=== PATIENT | male | born 1965 | race Caucasian/White ===

== ENCOUNTER 2016-05-22 12:29 | Emergency (ER) | payer OTHER ==
[2015-10-29 10:52] VITALS: BMI 36.6
[~2016-05-22 12:29] MED LIST: AMBIEN10 MG PO; GLUCOPHAGE1000 MG PO; LANTUS INSULIN10 ML SC; LIPITOR80 MG PO; NEURONTIN800 MG PO; NIFEDIPINE ER30 MG PO; OMEPRAZOLE20 M1 PO; PLAVIX75 MG PO; PROZAC20 MG PO; REMERON15 MG PO; REQUIP3 MG PO; TENORMIN50 MG PO; ZESTRIL40 MG PO
[2016-05-22 13:51] LABS: BASOPHILS 0.1 % (0.0-2.0); HEMATOCRIT 38.8 % (42.0-54.0); HEMOGLOBIN 12.1 g/dL (13.5-17.5); IMMATURE GRANULOCYTES 0.3 % (0-5); LYMPHOCYTES 13.8 % (15-50); MCH 25.6 pg (26.0-34.0); MCHC 31.2 g/dL (31.0-37.0); MCV 82.2 fL (80.0-100.0); MEAN PLATELET VOLUME 12.5 fL (7.4-10.4); MONOCYTES 10.1 % (2-11); NEUTROPHILS 72.7 % (40-80); PLATELET COUNT 137 10x3/uL (130-400); RBC 4.72 10x6/uL (4.20-6.10); RDW 14.4 % (11.5-14.5); WBC 7.7 10x3/uL (4.8-10.8)
[2016-05-22 14:36] LABS: ALBUMIN 2.9 g/dL (3.4-5.0); ALKALINE PHOSPHATASE 93 U/L (46-116); ALT (SGPT) 25 U/L (10-68); CALC OSMOLALITY 287 mosm/kg (275-300); CALCIUM 8.7 mg/dL (8.5-10.1); CARBON DIOXIDE 27.9 mmol/L (21.0-32.0); CHLORIDE - SERUM 98 mmol/L (98-107); CHOL - HDL RATIO 2.7 ratio (2.3-4.9); CHOLESTEROL, TOTAL 73 mg/dL (0-200); CKMB 1.5 U/L (0.0-3.6); CREATINE KINASE 187 UL (21-232); CREATININE - SERUM 1.5 mg/dL (0.6-1.3); HDL CHOLESTEROL 27 mg/dL (32-96); LDL CHOLESTEROL 21 mg/dL (0-100); LDL-HDL RATIO 0.8 ratio (1.5-3.5); MAGNESIUM - SERUM 1.2 mg/dL (1.8-2.4); PROTEIN - SERUM 7.3 g/dL (6.4-8.2); SODIUM 133 mmol/L (136-145); TRIGLYCERIDE 128 mg/dL (30-200); TROPONIN-I 0.036 ng/mL (0.000-0.060); UREA NITROGEN 19 mg/dL (7-18); eGFR NON AFRICAN AMERICAN 52 mL/min (90-120)
[2016-05-22 14:40] LABS: GLUCOSE 465 mg/dL (74-106); POTASSIUM - SERUM 4.6 mmol/L (3.5-5.1)
== END 2016-05-22 22:19 | disposition short-term general hospital (02) ==
LOC: D.ER 12:29
PROVIDERS: Emergency Medicine
DX: R07.9 Chest pain, unspecified (principal); I25.10 Atherosclerotic heart disease of native coronary artery without angina pectoris; E83.42 Hypomagnesemia; D64.9 Anemia, unspecified; R74.0 Nonspecific elevation of levels of transaminase and lactic acid dehydrogenase [LDH]; I10 Essential (primary) hypertension; Z86.73 Personal history of transient ischemic attack (TIA), and cerebral infarction without residual deficits; E78.5 Hyperlipidemia, unspecified; E11.65 Type 2 diabetes mellitus with hyperglycemia; Z79.4 Long term (current) use of insulin; I50.9 Heart failure, unspecified; G47.30 Sleep apnea, unspecified

== ENCOUNTER 2016-06-28 19:05 | Inpatient (IN) | payer MEDICARE ==
[~2016-06-28] VITALS: Ht 182.9 cm; Wt 145.6 kg
[2016-06-28 20:46] LABS: BASOPHILS 0.4 % (0.0-2.0); EOSINOPHILS 3.5 % (0-7); HEMATOCRIT 39.4 % (42.0-54.0); IMMATURE GRANULOCYTES 0.5 % (0-5); LYMPHOCYTES 11.4 % (15-50); MCH 24.1 pg (26.0-34.0); MCHC 27.9 g/dL (31.0-37.0); MCV 86.4 fL (80.0-100.0); MONOCYTES 8.4 % (2-11); NEUTROPHILS 75.8 % (40-80); RBC 4.56 10x6/uL (4.20-6.10); RDW 14.5 % (11.5-14.5); WBC 7.8 10x3/uL (4.8-10.8)
[2016-06-28 20:47] LABS: PLATELET COUNT 223 10x3/uL (130-400)
[2016-06-28 21:17] LABS: ALBUMIN 2.7 g/dL (3.4-5.0); ALKALINE PHOSPHATASE 102 U/L (46-116); ALT (SGPT) 26 U/L (10-68); BILIRUBIN - TOTAL 0.29 mg/dL (0.2-1.3); CALC OSMOLALITY 288 mosm/kg (275-300); CALCIUM 8.3 mg/dL (8.5-10.1); CARBON DIOXIDE 35.4 mmol/L (21.0-32.0); CHLORIDE - SERUM 100 mmol/L (98-107); CREATININE - SERUM 0.9 mg/dL (0.6-1.3); POTASSIUM - SERUM 4.3 mmol/L (3.5-5.1); PROTEIN - SERUM 6.6 g/dL (6.4-8.2); SODIUM 140 mmol/L (136-145); UREA NITROGEN 17 mg/dL (7-18); eGFR NON AFRICAN AMERICAN > 90 mL/min (90-120)
[2016-06-28 21:23] LABS: GLUCOSE 247 mg/dL (74-106)
[2016-06-28 21:33] LABS: CKMB 1.8 U/L (0.0-3.6); CREATINE KINASE 74 UL (21-232); PRO BNP 645 pg/mL (0-125); TROPONIN-I 0.017 ng/mL (0.000-0.060)
[2016-06-28] MEDS ORDERED: ASPIRIN81 MG PO (23:52)
[2016-06-28] MEDS ORDERED: BACLOFEN10 MG PO (23:53)
[2016-06-28] MEDS ORDERED: COREG12.5 MG PO (23:54)
[2016-06-28] MEDS ORDERED: LASIX20 MG PO ×2 (23:55→23:56)
[2016-06-28] MEDS ORDERED: TRAZODONE HCL50 MG PO (23:57)
[2016-06-29 00:22] VITALS: BP 148/84; BMI 43.5
[2016-06-29] MEDS ORDERED: ULTRAM50 MG PO (00:52)
[2016-06-29 04:00] VITALS: BP 174/81
[2016-06-29 04:44] LABS: BASOPHILS 0.2 % (0.0-2.0); EOSINOPHILS 3.9 % (0-7); HEMATOCRIT 38.2 % (42.0-54.0); HEMOGLOBIN 11.1 g/dL (13.5-17.5); IMMATURE GRANULOCYTES 0.3 % (0-5); LYMPHOCYTES 13.9 % (15-50); MCH 24.3 pg (26.0-34.0); MCHC 29.1 g/dL (31.0-37.0); MEAN PLATELET VOLUME 12.2 fL (7.4-10.4); MONOCYTES 11.7 % (2-11); PLATELET COUNT 230 10x3/uL (130-400); RBC 4.56 10x6/uL (4.20-6.10); RDW 14.4 % (11.5-14.5); WBC 6.5 10x3/uL (4.8-10.8)
[2016-06-29 04:46] LABS: MCV 83.8 fL (80.0-100.0)
[2016-06-29 05:10] LABS: CALC OSMOLALITY 289 mosm/kg (275-300); CALCIUM 8.6 mg/dL (8.5-10.1); CARBON DIOXIDE 39.5 mmol/L (21.0-32.0); CHLORIDE - SERUM 98 mmol/L (98-107); CREATININE - SERUM 0.9 mg/dL (0.6-1.3); GLUCOSE 275 mg/dL (74-106); POTASSIUM - SERUM 3.5 mmol/L (3.5-5.1); SODIUM 140 mmol/L (136-145); TROPONIN-I 0.037 ng/mL (0.000-0.060); UREA NITROGEN 15 mg/dL (7-18); eGFR NON AFRICAN AMERICAN > 90 mL/min (90-120)
--- NOTE | 2016-06-29 07:15 | NUR ---
REPORT RECEIVED FROM SOLAR ENGINEER NURSE. CALL LIGHT IN REACH.
--- NOTE | 2016-06-29 07:54 | NUR ---
REPORT RECEIVED FROM WEB PRODUCER NURSE. CALL LIGHT IN REACH.
[2016-06-29 08:15] VITALS: BP 151/79
--- NOTE | 2016-06-29 08:20 | NUR ---
REPORT CALLED TO DULCE ALVARADO.
--- NOTE | 2016-06-29 08:26 | NUR ---
AM MEDS ADMINISTERED. TRANSFERRED TO ROOM 2116 VIA .
--- NOTE | 2016-06-29 09:00 | NUR ---
RECEIVED PT TO ROOM 116 FROM MED/SURG DX CHF PT SLIGHTLY SOB O2 ON 3LPM NC TELEMETRY INTACT BUMEX TO PATENT TO RT HAND PER PUMP WITHOUT DIFFICULTY WILL CONTINUE TO MONITOR
--- NOTE | 2016-06-29 09:04 | NUR ---
DOBUTREX GTT STATRED AT THIS TIME PER PUMP AT 21.8 ML/HR TO RT HAND
--- NOTE | 2016-06-29 11:58 | NUR ---
SPOKE WITH DR CREWS REPORTED B/P 198/90 RECEIVED ORDERS TO RESTART HOME MEDICATIONS
[2016-06-29 12:05] VITALS: BP 198/90
--- NOTE | 2016-06-29 12:07 | NUR ---
FSBS 314 HUMALOG 12 UNITS GIVEN SQ ABDOMEN
--- NOTE | 2016-06-29 13:19 | NUR ---
RATIONALE FOR SCD'S EXPLAINED. REFUSED SCD'S
[2016-06-29 14:02] VITALS: Ht 182.9 cm; Wt 145.6 kg
--- NOTE | 2016-06-29 14:04 | NUR ---
IV access-22 gauge catheter inserted in right hand for access. Ragini Covington RN
[2016-06-29 15:53] VITALS: BP 197/95
[2016-06-29 20:00] VITALS: BP 140/67
--- NOTE | 2016-06-29 20:00 | NUR ---
PT SITTING UP IN BEDSIDE CHAIR. ALERT/ORIENTED. PIV TO RIGHT HAND WITH BUMEX DRIP INFUSING AT 5ML/HR AND DOBUTAMINE DRIP AT 21.8ML/HR INFUSING. EXPLAINED IMPORTANCE OF MEASURING ALL OUTPUT. REVIEWED PLAN OF CARE. O2 @ 2L/NC. SR PER TELEMETRY. CALL LIGHT IN REACH. CPOC.
--- NOTE | 2016-06-29 22:00 | NUR ---
BEDTIME MEDS GIVEN. FSBS 388. SLIDING SCALE INSULIN GIVEN, WELL SCHEDULED LANTUS.
[2016-06-30] VITALS: BP 122/71
[2016-06-30 04:00] VITALS: BP 120/67
[2016-06-30 04:32] LABS: BASOPHILS 0.5 % (0.0-2.0); EOSINOPHILS 2.4 % (0-7); HEMATOCRIT 37.5 % (42.0-54.0); HEMOGLOBIN 11.3 g/dL (13.5-17.5); IMMATURE GRANULOCYTES 0.5 % (0-5); LYMPHOCYTES 17.4 % (15-50); MCH 24.2 pg (26.0-34.0); MCHC 30.1 g/dL (31.0-37.0); MEAN PLATELET VOLUME 11.6 fL (7.4-10.4); MONOCYTES 10.4 % (2-11); NEUTROPHILS 68.8 % (40-80); PLATELET COUNT 225 10x3/uL (130-400); RBC 4.66 10x6/uL (4.20-6.10); RDW 14.8 % (11.5-14.5); WBC 6.4 10x3/uL (4.8-10.8)
[2016-06-30 04:36] LABS: MCV 80.5 fL (80.0-100.0)
[2016-06-30 05:01] LABS: ALBUMIN 2.8 g/dL (3.4-5.0); ALKALINE PHOSPHATASE 88 U/L (46-116); ALT (SGPT) 22 U/L (10-68); BILIRUBIN - TOTAL 0.61 mg/dL (0.2-1.3); CALC OSMOLALITY 286 mosm/kg (275-300); CALCIUM 8.5 mg/dL (8.5-10.1); CARBON DIOXIDE 39.3 mmol/L (21.0-32.0); CHLORIDE - SERUM 94 mmol/L (98-107); CREATININE - SERUM 0.9 mg/dL (0.6-1.3); POTASSIUM - SERUM 3.3 mmol/L (3.5-5.1); PRO BNP 942 pg/mL (0-125); PROTEIN - SERUM 7.2 g/dL (6.4-8.2); SODIUM 137 mmol/L (136-145); UREA NITROGEN 13 mg/dL (7-18); eGFR NON AFRICAN AMERICAN > 90 mL/min (90-120)
[2016-06-30 05:03] LABS: GLUCOSE 335 mg/dL (74-106)
--- NOTE | 2016-06-30 07:30 | NUR ---
PT RESTING QUIETLY EYES CLOSED RESP UNLABORED SKIN W/D NAD NOTED
[2016-06-30 08:56] VITALS: BP 150/70
--- NOTE | 2016-06-30 10:45 | NUR ---
Nutrition follow-up: Diet: ADA consistent CHO PO intake 100% of meals Labs: FSBS high Wt: 300# RDN following.
[2016-06-30 12:00] VITALS: BP 139/61
--- NOTE | 2016-06-30 13:10 | NUR ---
DR CREWS NOTIFIED OF PT'S FSBS 452 PT WAS COVERED WITH 20 UNITS OF HUMALOG SQ PER SLIDING SCALE NO FURTHER ACTION NEEDED PER DR CREWS
[2016-06-30 17:41] VITALS: BP 151/67
--- NOTE | 2016-06-30 18:40 | NUR ---
CALLED CRITICAL GLUCOSE [address] RODRÍGUEZ PECAN SHELLER FOR DR CREWS REPPORTED THAT 20 UNITS OF HUMALOG HAD BEED GIVEN PER PROTOCAL WHEN FSBS WAS GIVEN DR RODRÍGUEZ ORDERED FSBS TO BE RECHECKED IN 1 HOUR
--- NOTE | 2016-06-30 19:59 | NUR ---
PT ACCU CHECK DONE. GLUCOSE 444. PT HAS BEEN GREATER THAN 400 MOST OF THE DAY. CALL TO DR DIAZ AT THIS ITME TO NOTIFY HIM OF PT'S HYPERGLYCEMIA THIS PM. AWAITING RETURN CALL.
[2016-06-30 20:00] VITALS: BP 110/74
--- NOTE | 2016-06-30 20:01 | NUR ---
DR DIAZ RETURNS CALL. ORDERS 20 UNITS HUMALOG NOW AND TO RECHECK GLUCOSE IN 1 HOUR.
--- NOTE | 2016-06-30 20:57 | NUR ---
PT GLUCOSE RECHECKED. CONTINUES TO BE OVER 400 - RESULTED 417. CALL TO DR DIAZ, HE RETURNS CALL IMMEDIATELY. NEW ORDER RECEIVED TO GIVE 15 UNITS NOW OF HUMALOG SQ. RECHECK AT 2200. ALSO ORDERS TO CHANGE GLUCOSE CHECKS TO Q4H ONCE ABLE TO GET GLUCOSE UNDER 400 AND TO SWITCH THE PT TO THE HIGH DOSE SLIDING SCALE. SEE RN RECOVERY FOR FURTHER DETAILS.
--- NOTE | 2016-06-30 22:41 | NUR ---
GLUCOSE NOW 390. NO INTERVENTION. WILL RECHECK AT MIDNIGHT AND TREAT ACCORDINGLY PER S/S
--- NOTE | 2016-06-30 23:50 | NUR ---
PT GLUCOSE NOW 290. COVERAGE GIVEN PER S/S - HUMALOG 16 UNITS SC. WILL RECHECK IN 4 HOURS ORDERED. PT UPDATED ON POC CARE GIVEN, VERBALIZES UNDERSTANDING.
[2016-07-01 04:00] VITALS: BP 101/71
[2016-07-01 05:27] LABS: BASOPHILS 0.3 % (0.0-2.0); EOSINOPHILS 2.4 % (0-7); HEMATOCRIT 36.8 % (42.0-54.0); HEMOGLOBIN 10.9 g/dL (13.5-17.5); IMMATURE GRANULOCYTES 0.3 % (0-5); LYMPHOCYTES 16.4 % (15-50); MCH 24.2 pg (26.0-34.0); MCHC 29.6 g/dL (31.0-37.0); MCV 81.6 fL (80.0-100.0); MEAN PLATELET VOLUME 12.5 fL (7.4-10.4); MONOCYTES 17.7 % (2-11); NEUTROPHILS 62.9 % (40-80); PLATELET COUNT 210 10x3/uL (130-400); RBC 4.51 10x6/uL (4.20-6.10); RDW 14.7 % (11.5-14.5); WBC 5.7 10x3/uL (4.8-10.8)
[2016-07-01 05:51] LABS: ALBUMIN 2.7 g/dL (3.4-5.0); ANION GAP 4.7 mmol/L (8-16); BILIRUBIN - TOTAL 0.5 mg/dL (0.2-1.3); CALCIUM 8.2 mg/dL (8.5-10.1); POTASSIUM - SERUM 3.2 mmol/L (3.5-5.1)
[2016-07-01 06:08] LABS: CREATININE - SERUM 1.2 mg/dL (0.6-1.3)
[2016-07-01 06:09] LABS: CARBON DIOXIDE 41.5 mmol/L (21.0-32.0)
--- NOTE | 2016-07-01 07:52 | NUR ---
AWAKE LYING IN BED WITHOUT ANY DISTRESS. 3+ EDEMA IN L LOWER EXTREMITY. 4+ IN R LOWER EXTREMITY. WEIGHT IS 293 ON STANDING SCALE. BUMEX GTT IS GOING @ 5 AND DOPAMINE GTT GOING @ 21,8. MONITOR SHOWS ST@ RATE OF 106. WILL CONTINUE TO MONITOR.
[2016-07-01 09:19] VITALS: BP 135/66
--- NOTE | 2016-07-01 12:00 | NUR ---
BS IS 414. DR GANDHI HERE AND INFORMED OF BLOOD SUGAR. BS TO REMAIN TO BE CHECKED Q 4.
[2016-07-01 12:21] VITALS: BP 99/63
--- NOTE | 2016-07-01 13:22 | NUR ---
CALLED BACK AND ORDERS RECEIVED TO GIVE 20 U OF INSULIN AND RECHECK BS IN 1 HOUR.
[2016-07-01 15:49] VITALS: BP 94/62
[2016-07-01 21:37] VITALS: BP 132/69
[2016-07-02 00:30] VITALS: BP 148/83
[2016-07-02 04:30] VITALS: BP 120/72
[2016-07-02 04:55] LABS: BASOPHILS 0.4 % (0.0-2.0); EOSINOPHILS 3.9 % (0-7); HEMATOCRIT 37.9 % (42.0-54.0); HEMOGLOBIN 11.2 g/dL (13.5-17.5); IMMATURE GRANULOCYTES 0.4 % (0-5); LYMPHOCYTES 20.2 % (15-50); MCH 24.1 pg (26.0-34.0); MCHC 29.6 g/dL (31.0-37.0); MCV 81.7 fL (80.0-100.0); MEAN PLATELET VOLUME 11.9 fL (7.4-10.4); NEUTROPHILS 60.1 % (40-80); PLATELET COUNT 196 10x3/uL (130-400); RBC 4.64 10x6/uL (4.20-6.10); RDW 14.9 % (11.5-14.5); WBC 4.7 10x3/uL (4.8-10.8)
[2016-07-02 05:17] LABS: ANION GAP 4.5 mmol/L (8-16); CALCIUM 8.5 mg/dL (8.5-10.1); CREATININE - SERUM 1.1 mg/dL (0.6-1.3); POTASSIUM - SERUM 3.1 mmol/L (3.5-5.1)
[2016-07-02 05:37] LABS: CARBON DIOXIDE 41.6 mmol/L (21.0-32.0)
--- NOTE | 2016-07-02 07:25 | NUR ---
PT SITTING UP IN BED SLEEPING NO S/S DISTRESS NOTED WILL CONT TO MONITOR.
[2016-07-02 08:59] VITALS: BP 118/60
[2016-07-02 12:14] VITALS: BP 107/72
[2016-07-02 16:13] VITALS: BP 112/60
--- NOTE | 2016-07-02 18:12 | NUR ---
PT SITTING UP IN CHAIR DENIES NEEDS
--- NOTE | 2016-07-02 19:15 | NUR ---
INITIAL ROUNDS MADE. PT SITTING UP AT SIDE OF BED WATCHING TV. RIGHT HAND IV WITH BUMEX AND DOBUTREX INFUSING. DENIES NEEDS OR C/O AT THIS TIME. WILL CONT TO MONITOR.
[2016-07-02 21:37] VITALS: BP 143/81
--- NOTE | 2016-07-03 00:22 | NUR ---
PEDIATRIC CRITICAL CARE NURSE AT BEDSIDE FOR VS. NEEDS ADDRESSED AT THIS TIME. CALL LIGHT IN REACH. WILL CONT TO MONITOR.
[2016-07-03 00:30] VITALS: BP 101/50
[2016-07-03 04:45] VITALS: BP 132/76
[2016-07-03 04:59] LABS: BASOPHILS 0.3 % (0.0-2.0); EOSINOPHILS 3.2 % (0-7); HEMATOCRIT 38.1 % (42.0-54.0); HEMOGLOBIN 11.2 g/dL (13.5-17.5); IMMATURE GRANULOCYTES 0.3 % (0-5); LYMPHOCYTES 18.8 % (15-50); MCH 24.1 pg (26.0-34.0); MCHC 29.4 g/dL (31.0-37.0); MCV 82.1 fL (80.0-100.0); MEAN PLATELET VOLUME 12.2 fL (7.4-10.4); MONOCYTES 14.2 % (2-11); NEUTROPHILS 63.2 % (40-80); PLATELET COUNT 198 10x3/uL (130-400); RBC 4.64 10x6/uL (4.20-6.10); RDW 15.1 % (11.5-14.5)
--- NOTE | 2016-07-03 05:05 | NUR ---
RESTING WELL WITH EYES CLOSED, CONT TO MONITOR.
[2016-07-03 05:11] LABS: WBC 5.9 10x3/uL (4.8-10.8)
[2016-07-03 05:37] LABS: CALC OSMOLALITY 286 mosm/kg (275-300); CALCIUM 8.2 mg/dL (8.5-10.1); CHLORIDE - SERUM 96 mmol/L (98-107); GLUCOSE 207 mg/dL (74-106); POTASSIUM - SERUM 3.3 mmol/L (3.5-5.1); PRO BNP 463 pg/mL (0-125); SODIUM 139 mmol/L (136-145); UREA NITROGEN 21 mg/dL (7-18); eGFR NON AFRICAN AMERICAN 83 mL/min (90-120)
[2016-07-03 05:42] LABS: CARBON DIOXIDE 42.4 mmol/L (21.0-32.0)
--- NOTE | 2016-07-03 06:45 | NUR ---
WEIGHT 289.6
[2016-07-03 08:00] VITALS: BP 136/85
--- NOTE | 2016-07-03 08:14 | NUR ---
FSBS 265 HUMALOG 16 UNITS GIVEN SQ LT ARM
--- NOTE | 2016-07-03 11:52 | NUR ---
FSBS 393 HUMALOG 24 UNITS GIVEN SQ LT ARM
[2016-07-03 12:08] VITALS: BP 134/80
[2016-07-03 16:00] VITALS: BP 149/72
--- NOTE | 2016-07-03 17:01 | NUR ---
FSBS 435 HUMALOG 28 UNITS GIVEN SQ LT ARM DR GALLO AWARE NEW ORDER NOTED TO RESTART HOME MED FOR METFORMIN 1000 MG PO
--- NOTE | 2016-07-03 19:15 | NUR ---
INITIAL ROUNDS MADE. PT SITTING UP ON SIDE OF BED WATCHING TV. DENIES NEEDS OR C/O AT THIS TIME. CALL LIGHT IN REACH. WILL CONT TO MONITOR.
[2016-07-03 21:40] VITALS: BP 148/76
[2016-07-04 02:00] VITALS: BP 111/64
--- NOTE | 2016-07-04 03:48 | NUR ---
RESTING WELL WITH EYES CLOSED. CALL LIGHT IN REACH. WILL CONT TO MONITOR.
[2016-07-04 04:24] LABS: BASOPHILS 0.2 % (0.0-2.0); EOSINOPHILS 4.1 % (0-7); HEMATOCRIT 38.8 % (42.0-54.0); HEMOGLOBIN 11.5 g/dL (13.5-17.5); IMMATURE GRANULOCYTES 0.2 % (0-5); LYMPHOCYTES 20.5 % (15-50); MCH 24.6 pg (26.0-34.0); MCHC 29.6 g/dL (31.0-37.0); MCV 82.9 fL (80.0-100.0); MEAN PLATELET VOLUME 12.2 fL (7.4-10.4); MONOCYTES 11.6 % (2-11); NEUTROPHILS 63.4 % (40-80); PLATELET COUNT 184 10x3/uL (130-400); RBC 4.68 10x6/uL (4.20-6.10); RDW 15.1 % (11.5-14.5); WBC 5.6 10x3/uL (4.8-10.8)
[2016-07-04 05:10] LABS: ANION GAP 8.9 mmol/L (8-16); CALCIUM 8.4 mg/dL (8.5-10.1); CARBON DIOXIDE 39.5 mmol/L (21.0-32.0); CREATININE - SERUM 1.2 mg/dL (0.6-1.3); POTASSIUM - SERUM 3.4 mmol/L (3.5-5.1)
--- NOTE | 2016-07-04 07:30 | NUR ---
RESTING QUIETLY NAD NOTED
[2016-07-04 07:52] VITALS: BP 146/66
--- NOTE | 2016-07-04 07:54 | NUR ---
FSBS 204 HUMALOG 10 UNITS GIVEN SQ LT ARM
--- NOTE | 2016-07-04 08:17 | EC ---
PATIENT:JOSE MOTA DATE OF SERVICE: 06/28/16 SEX: M MEDICAL RECORD: [id number] DATE OF : [birth year] LOCATION:D. D.211 AGE OF PATIENT: 51 ADMISSION DATE: 06/28/16 REFERRING PHYSICIAN: INTERPRETING PHYSICIAN: PRERNA CORNELL M.D. ECHOCARDIOGRAM REPORT ECHO CHARGES 4 ECHO COMPLETE CLINICAL DIAGNOSIS: CHF HX CAD/STENT/HTN ECHOCARDIOGRAPHIC MEASUREMENTS (adult normal given) AC root (d.<3.7cm) 3.5 LV Septum d (<1.2 cm> 14.4 Valve Excursion 1.6 LV Septum (systole) 1.8 Left Atria (s.<4.0cm> 3.8 LVPW d(<1.2cm) 1.5 RV (d.<2.3cm) 5.7 LVPW (sytole) 1.8 LV diastole(<5.6CM) 6.5 MV E-F(>70mm/sec) LV systole 4.5 LVOT Diameter 2.3 MV exc.(>10mm) 1.4 Est.ejection fraction (50-75%) Pericardial Effusion N DOPPLER: LVIT A 104 E 133 LA RVSP 25 LVOT 132 AOP1/2T Asc. Ao 180 RVOT 111 RA PA 176 AV Gradient Peak 12.98 AV Mean 7.07 AV Area 3.1 MV Gradient Peak 11.46 MV Mean 4.41 MV Area COMMENTS: [employer] Manager: Jean CAMPBELL Thermostat Machine Tender:2 Dr. Cornell TAPE# PACS DATE OF SERVICE: 06/29/2016 REFERRING PHYSICIAN: Derick Miller DO. INDICATION: CHF. DESCRIPTION: Left ventricle is moderately dilated. However, systolic function is preserved. Estimated ejection fraction is in the order of 50% to 55%. Mitral valve is structurally normal. There is no regurgitation or prolapse seen. Left atrium is normal in size. The aortic valve is trileaflet. There is ECHOCARDIOGRAM REPORT [id number] JOSE MOTA no stenosis or regurgitation seen. Right ventricle is moderately dilated. Tricuspid valve is normal. There is mild regurgitation seen. Right ventricular systolic pressures measured at 25 mmHg. There is no pericardial effusion noted. IMPRESSION: 1. Moderately dilated left ventricle, but ejection fraction preserved at 50% to 55%. 2. Mild tricuspid regurgitation. TRANSINT:[id number] Voice Confirmation ID: [id number] DOCUMENT ID: [id number] PRERNA CORNELL M.D. at 0817 CC: [id number] DICTATION DATE: 06/30/16632 COMPOSING ROOM SUPERVISOR: 06/30/16 1148 ADM IN [facility] [address] [place] [address]
[2016-07-04 11:42] VITALS: BP 83/49
--- NOTE | 2016-07-04 11:48 | NUR ---
FSBS 309 HUMALOG 20 UNITS GIVEN SQ RT ARM
--- NOTE | 2016-07-04 15:00 | NUR ---
RECEIVED PT FROM ADMISSIONS VIA W/C SOB 02 SAT 91 ON ROOM AIR APPLIED O2 2 LPM NC O2 SAT 97% SKIN W/D COLOR WNL 2+ PITTING EDEMA NOTED TO BLEs SALINE LOCK ACCESSED RFA WITH 20 GA IV CATH USING ASEPTIC TECHNIQUE X 2 ATTEMPTS PT TOLERATED WELL TELEMETRY APPLIED SINUS TACH RATE 110 WILL CONTINUE TO MONITOR
--- NOTE | 2016-07-04 15:12 | NUR ---
Nutrition follow-up: Diet: Consistent CHO PO intake 100% of meals Labs: FSBS running very high Wt: 287# Will provide pt with DMT2 diet information RDN following.
[2016-07-04 15:51] VITALS: BP 124/67
--- NOTE | 2016-07-04 17:04 | NUR ---
FSBS 292 HUMALOG 20 UNITS GIVEN SQ ABD
--- NOTE | 2016-07-04 19:15 | NUR ---
INITIAL ROUNDS MADE. PT SITTING UP IN BED WATCHING TV WITH FAMILY AT BEDSIDE. DISCUSSED PLAN OF CARE AND ANSWERED QUESTIONS. PT DENIES NEEDS OR C/O AT THIS TIME. CALL LIGHT IN REACH. WILL CONT TO MONITOR.
--- NOTE | 2016-07-04 23:56 | NUR ---
MORNING CAREGIVER AT BEDSIDE FOR VS. NEEDS ADDRESSED AT THIS TIME. CALL LIGHT IN REACH. WILL CONT TO MONITOR.
[2016-07-05] VITALS: BP 97/50
[2016-07-05 04:00] VITALS: BP 137/66
[2016-07-05 07:31] LABS: ANION GAP 6.1 mmol/L (8-16); CALCIUM 8.4 mg/dL (8.5-10.1); CARBON DIOXIDE 39.2 mmol/L (21.0-32.0); CREATININE - SERUM 1.5 mg/dL (0.6-1.3); MAGNESIUM - SERUM 1.3 mg/dL (1.8-2.4)
[2016-07-05 07:35] LABS: POTASSIUM - SERUM 4.3 mmol/L (3.5-5.1)
[2016-07-05 07:48] VITALS: BP 98/42
[2016-07-05] MEDS ORDERED: BUMEX2 MG PO (07:51)
--- NOTE | 2016-07-05 09:46 | NUR ---
PT IS ALERT. ASSESSMENT DONE PER FLOWSHEET. NO OTHER NEEDS AT THIS TIME. WILL CONTINUE TO MONITOR.
--- NOTE | 2016-07-05 11:37 | NUR ---
Patient Name: JOSE MOTA Admission Status: ER Accout number: [id number] Admission Date: 06-28-2016 : 1965 Admission Diagnosis:ACUTE ON CHRONIC SYSTOLIC (CONGESTIVE) HEART FAILURE Attending: MARLEY Current LOS: 7 Anticipated DC Date: 07-05-2016 Planned Disposition: Home Primary Insurance: Commissioner MEDICARE ADV Discharge Planning Comments: * Is the patient Alert and Oriented? Yes 0 * How many steps to enter\exit or inside your home? RAMP 0 * PCP [facility] * [facility]acy [facility] [address] 0 * Preadmission Environment Home with Family 0 * ADLs Independent 0 * Equipment Cane Glucometer Oxygen 0 * Other Equipment HOME AND PORTABLE OXYGEN [employer] - MEDICAL EQUIPMENT PROVIDER 0 * List name and contact numbers for known caregivers / representatives who currently or will assist patient after discharge: HAO MOTA, MOTHER, 0 * Community resources currently utilized None 0 * Please name any agencies selected above. NONE 0 * Additional services required to return to the preadmission environment? No 0 * Can the patient safely return to the preadmission environment? Yes 0 * Has this patient been hospitalized within the prior 30 days at any hospital? Yes 0 CM MET WITH PT AND HIS MOTHER IN ROOM TO DISCUSS DISCHARGE PLANNING AND NEEDS. PT REPORTS LIVING AT HOME INDEPENDENTLY WITH HIS MOTHER WHO IS WORKING VIDEO CAMERA OPERATOR AND IS HOPING TO BECOME PT[facility]ID [facility] PT HAS HOME AND PORTABLE OXYGEN, GLUCOMETER AND [facility]E [facility]. PT HAS NO OUTSIDE SERVICES ASSISTING IN THE HOME. CM DISCUSSED AVAILABILITY OF HOME HEALTH, REHAB SERVICES AND MEDICAL EQUIPMENT. PT DENIES DISCHARGE NEEDS, REPORTS HER HIS MOTHER IS HERE TO PICK HIM UP FOR DISCHARGE HOME. IMPORTANT MESSAGE FROM MEDICARE PROVIDED AND EXPLAINED. PT TO FOLLOW UP WITH [facility] FOR MANAGER SALES SUPPORT QUESTIONS. Quarter Supervisor: Miko Persaud
[2016-07-05 11:46] VITALS: BP 142/74
--- NOTE | 2016-07-07 18:09 | DS ---
PATIENT:JOSE MOTA :61 MEDICAL RECORD: [id number] DISCHARGE SUMMARY ADMISSION DATE: 06/28/16 DISCHARGE DATE: 07/05/16 ADMISSION DIAGNOSES: Congestive heart failure and uncontrolled diabetes mellitus. DISCHARGE DIAGNOSES: Congestive heart failure and uncontrolled diabetes mellitus. HOSPITAL COURSE: The patient was admitted for worsening shortness of breath, successfully diuresed. Cardiology consulted. Insulin regimen to control his glucose was maintained, gradually improved, dobutamine was added to aid diuresis. Cardiology evaluated the patient, placed him on resumption of oral diuretics. The patient is back to his baseline, anxious to go home. Cleared for discharge by cardiology. He has O2 at home. He was discharged in stable and improved condition. We will follow up with cardiology. We will follow up with Dr. Miller, his primary, in 1 week. DISCHARGE MEDICATIONS: Per med rec. PHYSICAL EXAMINATION: VITAL SIGNS ON DISCHARGE: Temperature 97.9, blood pressure 98/42, heart rate 67, respirations 18 and O2 sats 94% on supplemental O2. LABORATORY DATA: Chemistry shows a sodium of 136, potassium 4.3, chloride 95, bicarbonate 39.2, BUN 31 and creatinine 1.5. MEDICATIONS: Per med rec. Agree with the assessment. Cardiology followup as above. Return to the ER with worsening symptoms. TRANSINT:[id number] Voice Confirmation ID: [id number] DOCUMENT ID: [id number] BALJINDER FAROOQ DO at 1809 CC: [id number] DICTATION DATE: 07/05/16 0757 CARTOGRAPHY TEACHER: 07/06/16 0146 DIS IN 07/05/16 [place] [id number] [place] [id number]
== END 2016-07-05 13:18 | disposition home or self-care (01) | DRG 292 ==
LOC: D.ER 19:05 → D.MS 22:00 → D.M2 22:00 → D.SDCHOLD 06-29 20:08 → D.M2 06-29 20:09
PROVIDERS: Emergency Medicine; Family Medicine; ADMIT Family Medicine
DX: I11.0 Hypertensive heart disease with heart failure (principal); Z68.41 Body mass index [BMI] 40.0-44.9, adult; I50.23 Acute on chronic systolic (congestive) heart failure; E11.65 Type 2 diabetes mellitus with hyperglycemia; I25.10 Atherosclerotic heart disease of native coronary artery without angina pectoris; E78.5 Hyperlipidemia, unspecified; E66.01 Morbid (severe) obesity due to excess calories; E87.6 Hypokalemia; Z86.73 Personal history of transient ischemic attack (TIA), and cerebral infarction without residual deficits

== ENCOUNTER 2016-12-15 21:39 | Emergency (ER) | payer MEDICARE ==
[2016-06-29 14:02] VITALS: BMI 43.4
[~2016-12-15 21:39] MED LIST changes: +ASPIRIN81 MG PO; +BACLOFEN10 MG PO; +BUMEX2 MG PO; +COREG12.5 MG PO; +LASIX20 MG PO; +TRAZODONE HCL50 MG PO; +ULTRAM50 MG PO
== END 2016-12-16 00:30 | disposition home or self-care (01) ==
LOC: D.ER 21:39
DX: K21.9 Gastro-esophageal reflux disease without esophagitis (principal); K20.9 Esophagitis, unspecified; I10 Essential (primary) hypertension

== ENCOUNTER 2016-12-28 19:40 | Emergency (ER) | payer MEDICARE ==
[2016-06-29 14:02] VITALS: BMI 43.4
== END 2016-12-28 21:11 | disposition home or self-care (01) ==
LOC: D.ER 19:40
DX: S91.331A Puncture wound without foreign body, right foot, initial encounter (principal); X58.XXXA Exposure to other specified factors, initial encounter; Y93.89 Activity, other specified; Y92.019 Unspecified place in single-family (private) house as the place of occurrence of the external cause; G62.9 Polyneuropathy, unspecified

== ENCOUNTER 2017-02-27 12:42 | Outpatient (CLI) | payer MEDICARE ==
[~2017-02-27] VITALS: Ht 182.9 cm; Wt 121.2 kg
--- NOTE | ~2017-02-27 | HEMODYNAMI ---
PATIENT:JOSE MOTA MEDICAL RECORD: [id number] : 61 LOCATION:[facility] D.2109 ADMISSION DATE: 02/27/17 Generatedon:03/01/201712:37 Patient name: JOSE MOTA Patient #: [id number] SSN: : 1965 Date of study: 03/01/2017 Page: Of Hemodynamic Procedure Report Patient Data Patient Demographics Procedure consent was obtained First Name: JOSE Gender: Male Last Name: SVETLANA : 1965 [facility] Initial: ELDA Age: 52 year(s) Patient #: [id number] Race: Additional ID: [id number] Contact details [address]: [address] [place] [address] [address] State: [place] City: [place] Zip code: [address] Past Medical History Allergies Allergen Reaction Date Comments Reported Other allergy 10/29/2015 Penicillins Other allergy 02/28/2017 pcn Penicillins 03/01/2017 Admission Admission Data Admission Date: 02/27/2017 Admission Time: 15:26 Room #: D.2109 Height (in.): 71.65 BSA: 2.38 (m2) Height (cm.): 182 BMI: 35.93 (kg/m2) Weight (lbs.): 262.35 Weight (kg.): 119 Lab Results Lab Result Date: 03/01/2017 Lab Result Time: 0:00 Biochemistry Name Units Result Min Max BUN mg/dl 12 --(-*--)-- 7 18 Creatinine mg/dl 0.9 --(-*--)-- 0.6 1.3 CBC Name Units Result Min Max Hemoglobin g/dl 14 --(*---)-- 13.5 17.5 Procedure Procedure Types Cath Procedure PCI Procedure Coronary Stent Coronary Stent Initial Coronary Stent Additional Miscellaneous Procedures Moderate Sedation up to 30 minutes Procedure Description Procedure Date Procedure Date: 03/01/2017 Procedure Start Time: 12:12 Procedure End Time: 12:37 Procedure Staff Name Function Bar French MD Performing Physician Leeanna Temple RT Monitor Jaycee Fofana RT Scrub [place] Diaz RN Nurse Procedure Data Cath Procedure Fluoroscopy Diagnostic fluoroscopy Total fluoroscopy Time: 7.2 time: 7.2 min min Diagnostic fluoroscopy Total fluoroscopy dose: dose: 2105 mGy 2105 mGy Contrast Material Contrast Material Type Amount (ml) Isovue 300 101 Entry Location Entry Primary Successful Side Size Upsize Upsize Entry Closure Ponce ccessful Closure Location (Fr) 1 (Fr) 2 (Fr) Remarks Device Remarks Femoral Right 4 Fr Manual vein Compression Femoral Right 7 Fr Exoseal artery Short Estimated blood loss: 10 ml Procedure Complications No complications Procedure Medications Medication Administration Route Dosage Oxygen NC 2 l/min Lidocaine 2% added to field 20 Heparin Flush Bag added to field 2 bags (1000units/500ml NS) 0.9% NaCl I.V. 100 ml/hr Versed I.V. 2 mg Fentanyl I.V. 100 mcg Heparin Bolus I.V. 4000 units Fentanyl I.V. 50 mcg Hemodynamics Rest BSA: 2.38 (m2) HGB: 14 (g/dl) O2 Consumption: Estimated: 286.31 (ml/min) O2 Cons umption indexed: Estimated:120.3 (ml/min/m) Heart Rate: 74 (bpm) Snapshots Pre Cath Intra NCS Post Cath Vital Signs Time Heart Resp SPO2 etCO2 NIBP (mmHg) Rhythm Pain Sedation Rate (ipm) (%) (mmHg) Status Level (bpm) 11:59:02 73 16 97 0 167/90(147) NSR 0 (11) 10(A) , No pain 12:03:22 72 14 95 0 163/96(135) NSR 0 (11) 10(A) , No pain 12:07:44 67 16 98 41.4 152/94(124) NSR 0 (11) 10(A) , No pain 12:12:00 67 17 98 40.6 134/85(123) NSR 0 (11) 10(A) , No pain 12:16:18 66 15 98 31.6 126/75(104) NSR 0 (11) 10(A) , No pain 12:20:30 83 15 97 32.4 117/78(92) NSR 0 (11) 9(A) , No pain 12:24:42 89 16 94 26.3 115/69(78) NSR 0 (11) 9(A) , No pain 12:28:46 90 14 95 42.1 115/93(108) NSR 0 (11) 9(A) , No pain 12:32:56 88 16 98 25.6 131/77(89) NSR 0 (11) 10(A) , No pain 12:37:06 87 3 96 41.4 113/83(104) NSR 0 (11) 10(A) , No pain Medications Time Medication Route Dose Verified Delivered Reason Notes Effectiveness by by 12:06:03 Oxygen NC 2 Bar Buffie used for l/min Gillian Diaz RN procedure 12:06:10 Lidocaine 2% added 20ml Bar Bar for local to vial Gillian French MD anesthetic field 12:06:14 Heparin Flush added 2 Bar Bar used for Bag to bags Gillian French MD procedure (1000units/500ml field NS) 12:16:00 Versed I.V. 2 mg Bar Jayie for sedation Gillian Diaz RN 12:16:06 Fentanyl I.V. 100 Bar Buffie for sedation mcg Gillian Diaz RN 12:16:54 0.9% NaCl I.V. 100 Bar Bar ml/hr Gillian French MD 12:17:13 Heparin Bolus I.V. 4000 Bargerman Jayie for verifi ed units Gillian Diaz RN anticoagulation with dr french 12:26:57 Fentanyl I.V. 50 Bar Jayie for sedation mcg Gillian Diaz RN Procedure Log Time Note 11:25:02 Patient Height : 71.65 inches 11:25:23 Patient Weight : 262.35 lbs 11:26:23 Diagnostic Cath status Elective 11:26:27 Jaycee Fofana RT(R) sent for patient. Start room use. 11:26:29 Time tracking: Regular hours 11:26:34 Plan of Care:Hemodynamics will remain stable., Cardiac rhythm will remain stable., Comfort level will be maintained., Respiratory function will remain adequate., Patient/ family verbilizes understanding of procedure., Procedure tolerated without complication., Recovers from procedure without complications.. 11:54:56 Patient received from PCU to CCL 2 Alert and oriented. Tansferred to table in Supine position. 11:54:58 Warm blankets applied, and alex hugger turned on for patient comfort. 11:54:59 Correct patient and procedure confirmed by team. 11:55:03 Signed procedure consent form obtained from patient. 11:55:07 ECG and BP/O2 sat monitors applied to patient. 11:57:47 Vital chart was started 11:57:48 Baseline sample Acquired. 11:57:57 Rhythm: sinus rhythm 11:57:59 Full Disclosure recording started 11:58:44 Pre-procedure instructions explained to patient. 11:58:45 Pre-op teaching completed and patient verbalized understanding. 11:58:48 Family in patients room. 11:58:51 Patient NPO since Breakfast. 12:02:41 Patient allergic to Penicillins 12:02:44 Is the patient allergic to Iodine/contrast media? No. 12:02:45 Is patient on blood thinner?Yes 12:02:55 ACC The patient was administered the following blood thiners within the last 24 hours: ACCPlavix 12:02:58 Patient diabetic? No. 12:03:00 If diabetic: On Metformin? No 12:03:05 ----Pre-sedation anethsthesia assessment.---- 12:03:07 Previous problem with sedation/anesthesia? No ? 12:03:10 Snore? Yes 12:03:11 Sleep apnea? Yes 12:03:13 Deviated septum? No 12:03:14 Opens mouth fully? No 12:03:19 Sticks out tongue? Yes 12:03:22 Airway obstruction? No ? 12:03:30 Dentures? No ? 12:04:04 Pre procedure: right dorsailis pedis pulse 2+ Normal; easily identifiable; not easily obliterated 12:04:12 Patient pain scale 0/10 ?. 12:04:27 IV patent on arrival in left wrist with 0.9% NaCl at O. 12:04:51 THE I.V. WILL NOT FLUSH 12:05:14 DR. FRENCH WILL GAIN RFV ACCESS FOR IV 12:06:03 Oxygen 2 l/min NC was administered by Ridge Diaz RN; used for procedure; 12:06:10 Lidocaine 2% 20ml vial added to field was administered by Bar French MD; for local anesthetic; 12:06:14 Heparin Flush Bag (1000units/500ml NS) 2 bags added to field was administered by Bar French MD; used for procedure; 12:06:20 Lab Result : BUN 12 mg/dl 12:06:20 Lab Result : Creatinine 0.9 mg/dl 12:06:20 Lab Result : Hemoglobin 14 g/dl 12:06:52 Lab results completed and on chart. 12:06:56 Right groin area was prepped with chlora-prep and draped in sterile fashion 12:06:58 Alarms reviewed by R. N. 12:06:58 Sharps counted by scrub and verified by R.N. 12:06:59 Physician arrived 12:07:00 --------ALL STOP TIME OUT------ 12:07:01 Final Timeout: patient, procedure, and site verified with staff and physician. All members of the team are in agreement. 12:07:04 Right groin site verified by team. 12:07:07 Physical assessment completed. ASA score P 2 - A patient with mild systemic disease as per Bar French MD. 12:07:11 Sedation plan: IV Moderate Sedation Medication:Versed, Fentanyl 12:07:13 Bar French MD present and monitoring patient for TIVA. 12:07:17 Zero performed for pressure channel P1 12:12:34 Procedure started. 12:12:38 Local anesthetic to right femoral artery with Lidocaine 2% by Bar French MD.INITIAL ACCESS ONLY 12:14:24 Use device set Femoral PCI 12:14:28 Tegaderm 4 x 4 opened to sterile field. 12:14:29 Acist Manifold opened to sterile field. 12:14:40 Medline Cath Pack opened to sterile field. 12:14:41 Acist Hand Control opened to sterile field. 12:14:42 Acist Syringe opened to sterile field. 12:14:43 Bag Decanter opened to sterile field. 12:14:46 Terumo 7Fr Ambler Sheath opened to sterile field. 12:14:47 ST Mauricio 4Fr Sheath opened to sterile field. 12:14:48 Medtronic Launcher 7Fr AR 2.0 guide catheter opened to sterile field. 12:14:51 Cook 18G 7cm Percutaneous Entry needle opened to sterile field. 12:14:52 St Mauricio 260cm J .035 wire opened to sterile field. 12:14:53 Merit BasixCompak Inflation Kit opened to sterile field. 12:15:23 A 4 Fr sheath was inserted into the Right Femoral vein 12:16:00 Versed 2 mg I.V. was administered by Ridge Diaz RN; for sedation; 12:16:06 Fentanyl 100 mcg I.V. was administered by Ridge Diaz RN; for sedation; 12:16:17 [place] Evgen Choice PT Extra Support J 300cm .014 gu opened to sterile field. 12:16:50 A 7 Fr Short sheath was inserted into the Right Femoral artery 12:16:54 0.9% NaCl 100 ml/hr I.V. was administered by Bar French MD; ; 12:16:59 7 Fr AR 2 guide catheter was inserted over the wire 12:17:08 LEODAN PT ES wire advanced. 12:17:13 Heparin Bolus 4000 units I.V. was administered by Ridge Diaz RN; for anticoagulation; verified with dr french 12:18:38 Wire advanced across lesion. 12:19:20 Inflation number: 1 A [place] Sci [place] 1.5 X 20 balloon was prepped and advanced across the R PDA, then inflated to 21 ROXY for 0:10 (min:sec). 12:19:49 Inflation number: 2 The [place] Sci [place] 1.5 X 20 balloon was reinflated across the R PDA, to 21 ROXY for 0:10 (min:sec). 12:20:34 Inflation number: 3 The [place] Sci [place] 1.5 X 20 balloon was reinflated across the R PDA, to 21 ROXY for 0:10 (min:sec). 12:20:43 Balloon removed over the wire. 12::57 Inflation Number: 4 A Ewing OTW 2.25 x 38 stent was prepped and advanced across the R PDA. The stent was deployed at 21 ROXY for 0:10 (min:sec). 12:22:41 Inflation number: 5 The stent balloon was then re-inflated across the R PDA to 17 ROXY for 0:10 (min:sec). 12:23:44 Inflation number: 6 The stent balloon was then re-inflated across the R PDA to 11 ROXY for 0:10 (min:sec). 12:23:59 Stent catheter was removed intact over wire. 12::53 Inflation Number: 7 A Rosendo OTW 2.25 x 22 stent was prepped and advanced across the R PDA. The stent was deployed at 15 ROXY for 0:10 (min:sec). 12:: Stent catheter was removed intact over wire. 12::57 Fentanyl 50 mcg I.V. was administered by Ridge Diaz RN; for sedation; 12::25 Inflation Number: 1 A Ewing OTW 2.5 x 15 stent was prepped and advanced across the Mid RCA. The stent was deployed at 13 ROXY for 0:10 (min:sec). 12:29:04 Stent catheter was removed intact over wire. 12:29:06 Wire removed. 12:29:07 Guide catheter removed. 12::44 Cordis 7Fr Exoseal opened to sterile field. 12:30:04 Sheath removed intact; hemostasis achieved with Exoseal to the Right Femoral artery. 12:30:09 Sheath removed intact; hemostasis achieved with Manual Compression to the Right Femoral vein. 12:30:29 Procedure ended.(Physican Out) 12::41 Fluoroscopy time 07.20 minutes. 12:30:45 Fluoroscopy dose: 2105 mGy 12:30:45 Flurop Dose total: 2105 12:30:51 Contrast amount:Isovue 300 101ml. 12:30:53 Sharps counted by scrub and verified by R.N. 12:30:54 Insertion/operative site no bleeding no hematoma. 12::57 Post-op/insertion site Right Femoral artery dressed using a 4 x 4 and Tegaderm. 12:31:15 Post right femoral artery:stable, soft, clean and dry 12:31:35 Post procedure: right dorsailis pedis pulse 2+ Normal; easily identifiable; not easily obliterated. 12:31:38 Post procedure rhythm: unchanged. 12::41 Estimated blood loss: 10 ml 12:31:42 Post procedure instruction explained to patient.Patient verbalizes understanding. 12::42 Patient needs reinforcement of post procedure teaching. 12:33:59 Procedure type changed to Cath procedure, PCI procedure, Coronary Stent, Coronary Stent Initial, Coronary Stent Additional, Miscellaneous Procedures, Moderate Sedation up to 30 minutes 12:36:42 Procedure and supply charges have been captured, reviewed, submitted and are correct. 12:36:45 Procedure Complication : No complications 12:37:01 Vital chart was stopped 12:37:01 See physician's report for complete and final results. 12:37:03 Report given to PCU. 12:37:06 Patient transfered to PCU with Bed. 12:37:08 Procedure ended. 12:37:08 Full Disclosure recording stopped 12:37:15 End room use (Document Last) Intervention Summary Intervention Notes Time ActionType Lesion and Equipment Action# Pressure Duration Attributes Used 12:19:20 Inflate R PDA [place] 1 21 00:10 balloon Sci [place] 1.5 X 20 balloon 12:19:49 Reinflate R PDA [place] 2 21 00:10 balloon Sci [place] 1.5 X 20 balloon 12:20:34 Reinflate R PDA [place] 3 21 00:10 balloon Sci [place] 1.5 X 20 balloon 12:21:57 Place stent R PDA Rosendo OTW 4 21 00:10 2.25 x 38 stent 12:22:41 Reinflate R PDA Ewing OTW 5 17 00:10 stent 2.25 x 38 balloon stent 12:23:44 Reinflate R PDA Ewing OTW 6 11 00:10 stent 2.25 x 38 balloon stent 12:25:53 Place stent R PDA Rosendo OTW 7 15 00:10 2.25 x 22 stent 12:28:25 Place stent Mid RCA Ewing OTW 1 13 00:10 2.5 x 15 stent Device Usage Item Name Manufacture Quantity Catalog Number Hospital Part Current Min imal Lot# / Charge Number Stock Stock Serial# Code Tegaderm 4 x 3M 1 [id number] 100126 [id number] [id number] 5 4 Acist Acist 1 20561 474336 078062 945590 5 Manifold Medical Systems Inc Medline Cath Cardinal 1 [id number] 716572 66084 408691 5 Pack Health Acist Hand Acist 1 62459 934857 185095 015345 5 Control Medical Systems Inc Acist Acist 1 03079 785015 391847 034051 20 Syringe Medical Systems Inc Bag Decanter Microtek 1 2002S 069230 82675 392204 5 Medical Inc. Terumo 7Fr Terumo 1 [id number] 907371 832478 129213 [address] Mauricio 1 332681 073154 305379 1646782 5 Sheath Medtronic Medtronic 1 [id number] 982668 725144 811556 0 Launcher 7Fr AR 2.0 guide catheter Cook 18G 7cm Cook Medical 1 [id number] 560459 82363 671018 [address] St Mauricio 1 177182 355287 929198 465943 30 260cm J .035 wire Merit Merit 1 [id number] 040499 485517 983580 15 BasixCompak Medical Inflation Kit [place] Sci [place] 1 [id number] 725988 20181015 224512 5 Choice PT Scientific Extra Support J 300cm .014 gu [place] Sci [place] 1 [id number] 541451 796422 472279 1 [id number] [place] 1.5 Scientific X 20 balloon Rosendo OTW Medtronic 1 [id number] 082971 85279 417511 5 [id number] 2.25 x 38 stent Rosendo OTW Medtronic 1 [id number] 825224 93572 910282 5 [id number] 2.25 x 22 stent Rosendo OTW 2.5 Medtronic 1 [id number] 065187 00317 151406 5 [id number] x 15 stent Cordis 7Fr Cardinal 1 [id number] 106508 575531 122128 5 [facility] Signature Audit [place] Stage Time Signature Unsigned Intra-Procedure 03/01/2017 Leeanna Temple 12:37:40 PM RT(R) Signatures Monitor : Leeanna Temple Signature : RT Date : Time : [place] [id number] [place] [address]
--- NOTE | ~2017-02-27 | HEMODYNAMI ---
PATIENT:JOSE MOTA MEDICAL RECORD: [id number] : 61 [facility] ADMISSION DATE: 02/27/17 Generatedon:02/28/20179:36 Patient name: JOSE MOTA Patient #: [id number] SSN: : 1965 Date of study: 02/28/2017 Page: Of Hemodynamic Procedure Report Patient Data Patient Demographics Procedure consent was obtained First Name: JOSE Gender: Male Last Name: SVETLANA : 1965 [facility] Initial: ELDA Age: 52 year(s) Patient #: [id number] Race: Additional ID: [id number] Contact details [address]: [address] [place] [address] [address] State: [place] City: [place] Zip code: [address] Past Medical History Allergies Allergen Reaction Date Comments Reported Other allergy 10/29/2015 Penicillins Other allergy 02/28/2017 pcn Admission Admission Data Admission Date: 02/27/2017 Admission Time: 15:26 Room #: D.2109 Procedure Procedure Types Cath Procedure Diagnostic Procedure [facility] w/Coronaries FFR/IVUS Intra-Coronary IVUS Initial PCI Procedure Coronary Stent Coronary Stent Initial Miscellaneous Procedures Procedure Description Procedure Date Procedure Date: 02/28/2017 Procedure Start Time: 9:12 Procedure End Time: 9:35 Procedure Staff Name Function Bar French MD Performing Physician Nasir Rodriguez RT Monitor Elif Barbosa RT Scrub Jose Roper RN Nurse Procedure Data Cath Procedure Fluoroscopy Diagnostic fluoroscopy Total fluoroscopy Time: 3.3 time: 3.3 min min Diagnostic fluoroscopy Total fluoroscopy dose: dose: 346.89 mGy 346.89 mGy Contrast Material Contrast Material Type Amount (ml) Isovue 300 88 Entry Location Entry Primary Successful Side Size Upsize Upsize Entry Closure Ponce ccessful Closure Location (Fr) 1 (Fr) 2 (Fr) Remarks Device Remarks Radial Right 6 Fr Mechanical artery Short Compression Estimated blood loss: 5 ml Diagnostic catheters Device Type Used For End Catheter Placement Diagnostic Terumo 5Fr Procedure [place] 110cm catheter Procedure Medications Medication Administration Route Dosage Oxygen NC 2 l/min Heparin Flush Bag added to field 2 bags (1000units/500ml NS) 0.9% NaCl I.V. 100 ml/hr Radial Cocktail added to field 1 syringe (Verapomil 2mg/Nitro 400mcg/Heparin 1500units) Fentanyl I.V. 50 mcg Versed I.V. 1 mg Radial Cocktail I.A. 1 syringe (Verapomil 2mg/Nitro 400mcg/Heparin 1500units) Fentanyl I.V. 50 mcg Versed I.V. 1 mg Heparin Bolus I.V. 4000 units Hemodynamics Rest Heart Rate: 76 (bpm) Pressure Samples Time Site Value (mmHg) Purpose Heart Use Rate(bpm) 9:15 LV 31/7,12 Snapshot 51 Snapshots Pre Cath Intra NCS Post Cath Vital Signs Time Heart Resp SPO2 etCO2 NIBP (mmHg) Rhythm Pain Sedation Rate (ipm) (%) (mmHg) Status Level (bpm) 8:52:08 87 18 96 0 145/83(100) NSR 0 (11) 10(A) , No pain 8:56:34 93 18 96 0 150/92(103) NSR 0 (11) 10(A) , No pain 9:01:00 95 17 96 0 140/90(109) NSR 0 (11) 10(A) , No pain 9:05:28 112 18 95 0 134/84(119) NSR 0 (11) 10(A) , No pain 9:09:53 90 16 95 0 123/88(120) NSR 0 (11) 10(A) , No pain 9:14:13 87 16 93 0 143/85(124) NSR 0 (11) 10(A) , No pain 9:18:39 95 18 78 0 115/71(85) NSR 0 (11) 9(A) , No pain 9:23:57 91 17 93 0 112/100(110) NSR 0 (11) 9(A) , No pain 9:29:02 91 16 96 0 106/83(91) NSR 0 (11) 9(A) , No pain 9:32:33 91 17 94 0 111/90(108) NSR 0 (11) 9(A) , No pain Medications Time Medication Route Dose Verified Delivered Reason Notes Effectiveness by by 9:09:12 Oxygen NC 2 l/min Bar Garcia Per physician Gillian Roper RN 9:09:19 Heparin Flush added 2 bags Bar Garcia used for Bag to Gillian Roper RN procedure (1000units/500ml field NS) 9:09:29 0.9% NaCl I.V. 100 Bar Garcia Per physician ml/hr Gillian Roper RN 9:09:37 Radial Cocktail added 1 Bar Garcia used for (Verapomil to syringe Gillian Roper RN procedure 2mg/Nitro field 400mcg/Heparin 1500units) 9:10:40 Fentanyl I.V. 50 mcg Bar Garcia for sedation Gillian Roper RN 9:10:47 Versed I.V. 1 mg Bar Garcia for sedation Gillian Roper RN 9:13:58 Radial Cocktail I.A. 1 Bar Bar for (Verapomil syringe Gillian French MD vasodilation 2mg/Nitro 400mcg/Heparin 1500units) 9:14:19 Fentanyl I.V. 50 mcg Bar Garcia for sedation Gillian Roper RN 9:14:22 Versed I.V. 1 mg Bar Garcia for sedation Gillian Roper RN 9:21:57 Heparin Bolus I.V. 4000 Bar Lipscomby for units Gillian Roper RN anticoagulation Procedure Log Time Note 8:10:03 Diagnostic Cath Status : Elective 8:10:34 Nasir Rodriguez RT(R) (CV) sent for patient. Start room use. 8:10:35 Time tracking: Regular hours 8:10:39 Plan of Care:Hemodynamics will remain stable., Cardiac rhythm will remain stable., Comfort level will be maintained., Respiratory function will remain adequate., Patient/ family verbilizes understanding of procedure., Procedure tolerated without complication., Recovers from procedure without complications.. 8:37:50 Patient received from Med II to CCL 3 Alert and oriented. Tansferred to table in Supine position. 8:37:51 Warm blankets applied, and alex hugger turned on for patient comfort. 8:37:52 Correct patient and procedure confirmed by team. 8:37:54 Signed procedure consent form obtained from patient. 8:37:55 ECG and BP/O2 sat monitors applied to patient. 8:38:01 Baseline sample Acquired. 8:38:05 Full Disclosure recording started 8:38:09 H&P Date Dictated: 02/28/2017 New H&P dictated by physician.. 8:38:10 Pre-procedure instructions explained to patient. 8:38:11 Pre-op teaching completed and patient verbalized understanding. 8:38:16 Family in waiting room. 8:38:20 Patient NPO since Midnight. 8:38:30 Patient allergic to Other allergypcn 8:38:33 Is the patient allergic to Iodine/contrast media? No. 8:38:34 Was the patient premedicated? No 8:38:37 Is patient on blood thinner?Yes 8:38:39 ACC The patient was administered the following blood thiners within the last 24 hours: ACCPlavix 8:38:42 Patient diabetic? Yes. 8:38:43 If diabetic: On Metformin? Yes 8:38:46 If on Metformin: Last Dose? 02/26/2017 8:38:50 Previous problem with sedation/anesthesia? No ? 8:38:52 Snore? Yes 8:38:53 Sleep apnea? Yes 8:38:54 Deviated septum? No 8:38:55 Opens mouth fully? Yes 8:38:55 Sticks out tongue? Yes 8:38:58 Airway obstruction? No ? 8:39:00 Dentures? No ? 8:39:08 Pre procedure: right dorsailis pedis pulse 2+ Normal; easily identifiable; not easily obliterated 8:39:12 Pre procedure: left dorsailis pedis pulse 2+ Normal; easily identifiable; not easily obliterated 8:39:15 Patient pain scale 0/10 ?. 8:39:25 IV patent on arrival in Left upper arm with 0.9% NaCl at [facility]. 8:39:32 Lab results completed and on chart. 8:39:36 Right Radial & Right Groin area was prepped with chlora-prep and draped in sterile fashion 8:39:37 Alarms reviewed by R. N. 8:39:38 Sharps counted by scrub and verified by R.N. 8:50:46 Vital chart was started 8:50:48 Baseline sample Acquired. 8:50:54 Rhythm: sinus rhythm 8:56:54 Zero performed for pressure channel P1 8:56:57 Zero performed for pressure channel P1 9:02:27 Physician arrived 9::28 --------ALL STOP TIME OUT------ 9::29 Final Timeout: patient, procedure, and site verified with staff and physician. All members of the team are in agreement. 9:02:32 Right Radial & Right Groin site verified by team. 9:02:36 Physical assessment completed. ASA score P 2 - A patient with mild systemic disease as per Bar French MD. 9:02:41 Sedation plan: IV Moderate Sedation Medication:Versed, Fentanyl 9:09:12 Oxygen 2 l/min NC was administered by Jose Roper RN; Per physician; 9:: Heparin Flush Bag (1000units/500ml NS) 2 bags added to field was administered by Jose Roper RN; used for procedure; 9::29 0.9% NaCl 100 ml/hr I.V. was administered by Jose Roper RN; Per physician; 9:09:37 Radial Cocktail (Verapomil 2mg/Nitro 400mcg/Heparin 1500units) 1 syringe added to field was administered by Jose Roper RN; used for procedure; 9:10:40 Fentanyl 50 mcg I.V. was administered by Jose Roper RN; for sedation; 9:10:47 Versed 1 mg I.V. was administered by Jose Roper RN; for sedation; 9:12:19 Procedure started. 9:12:25 Local anesthetic to right radial artery with Lidocaine 2% by Bar French MD.INITIAL ACCESS ONLY 9:13:45 A 6 Fr Short sheath was inserted into the Right Radial artery 9:13:58 Radial Cocktail (Verapomil 2mg/Nitro 400mcg/Heparin 1500units) 1 syringe I.A. was administered by Bar French MD; for vasodilation; 9:14:00 A Diagnostic Terumo 5Fr [place] 110cm catheter was advanced over the wire and used for Procedure. 9:14:19 Fentanyl 50 mcg I.V. was administered by Jose Roper RN; for sedation; 9:14:22 Versed 1 mg I.V. was administered by Jose Roper RN; for sedation; 9:15:23 LV gram done using CENTENO 9:15:24 LV hemodynamics recorded. 9:15:29 EF : 60 % 9:16:01 LCA angiography performed. 9:17:29 RCA angiography performed. 9:17:31 Catheter removed. 9:17:32 Proceeding to intervention. 9:17:33 Proceeding to intervention. 9:19:08 Herrera Whisper J 300cm 0.014 guide wire opened to sterile field. 9:19:09 Merit BasixCompak Inflation Kit opened to sterile field. 9:19:16 Cordis 6FR XBLAD 3.5 guide catheter opened to sterile field. 9:19:27 [place] IVUS Catheter opened to sterile field. 9:20:17 6 Fr XBLAD 3.5 guide catheter was inserted over the wire 9:21:33 Alc HoldingsISPER wire advanced. 9:21:35 Wire advanced across lesion. 9::57 Heparin Bolus 4000 units I.V. was administered by Jose Roper RN; for anticoagulation; 9::57 FFR/IVUS 9:22:02 IVUS catheter advanced over wire. 9:23:31 IVUS pass to LAD lesion performed. 9:23:33 IVUS catheter removed over wire. 9:23:50 81.5% 9:24:53 Inflation Number: 1 A Toledo RX 3.5 x 15 stent was prepped and advanced across the Prox LAD. The stent was deployed at 17 ROXY for 0:10 (min:sec). 9:25:17 Stent catheter was removed intact over wire. 9:25:19 Wire removed. 9:25:20 Guide catheter removed. 9:30:56 Terumo TR Band Large opened to sterile field. 9:31:10 Sheath removed intact; hemostasis achieved with Mechanical Compression to the Right Radial artery. 9:31:14 Procedure ended.(Physican Out) 9:31:38 Fluoroscopy time 03.30 minutes. 9:31:47 Flurop Dose total: 346.89 9:31:47 Fluoroscopy dose: 346.89 mGy 9:31:51 Contrast amount:Isovue 300 88ml. 9:31:53 Sharps counted by scrub and verified by R.N. 9:32:00 TR band inflated with 11cc of air. 9:32:01 Insertion/operative site no bleeding no hematoma. 9:32:14 Post right radial artery:stable 9:32:33 Post-procedure physical assessment completed. ASA score P 2 - A patient with mild systemic disease as per Bar French MD. 9:32:36 Post procedure rhythm: unchanged. 9:32:40 Estimated blood loss: 5 ml 9:32:41 Post procedure instruction explained to patient.Patient verbalizes understanding. 9:32:42 Patient needs reinforcement of post procedure teaching. 9:32:43 Procedure and supply charges have been captured, reviewed, submitted and are correct. 9:33:07 Procedure type changed to Cath procedure, Diagnostic procedure, LHC, LHC w/Coronaries, FFR/IVUS, Intra-Coronary IVUS Initial, PCI procedure, Coronary Stent, Coronary Stent Initial, Miscellaneous Procedures 9:34:06 Use device set Radial Dx 9:34:17 Acist Syringe opened to sterile field. 9:34:18 Medline Cath Pack opened to sterile field. 9:34:19 Bag Decanter opened to sterile field. 9:34:20 Terumo 6Fr Slender Glidesheath opened to sterile field. 9:34:21 St Mauricio 260cm J .035 wire opened to sterile field. 9:34:22 Acist Hand Control opened to sterile field. 9:34:23 Acist Manifold opened to sterile field. 9:34:24 Tegaderm 4 x 4 opened to sterile field. 9:35:00 Vital chart was stopped 9:35:01 See physician's report for complete and final results. 9:35:05 Report given to [facility]. 9:35:09 Patient transfered to [facility] II with Bed. 9:35:11 Procedure ended. 9:35:11 Full Disclosure recording stopped 9:35:15 End room use (Document Last) Intervention Summary Intervention Notes Time ActionType Lesion and Equipment Action# Pressure Duration Attributes Used 9:24:53 Place stent Prox LAD Rosendo RX 1 17 00:10 3.5 x 15 stent Device Usage Item Name Manufacture Quantity Catalog Hospital Part Current Minim al Lot# / Number Charge Number Stock Stock Serial# Code Diagnostic Terumo 1 [id number] 242091 [id number] 5 Terumo 5Fr [place] 110cm catheter Pacejet [employer]istics 1 [id number] 488350 673557 496367 5 Whisper J Vascular 300cm 0.014 guide wire Merit Merit 1 [id number] 328638 523877 000102 15 BasixCompak Medical Inflation Kit Cordis 6FR Cardinal 1 [id number] 017981 604202 431850 10 XBLAD 3.5 Health guide catheter [place] 1 [id number] 820883 102232 491903 8 [place] IVUS Catheter Rosendo RX 3.5 Medtronic 1 [id number] 199901 2794584 773551 5 [id number] x 15 stent Terumo TR Terumo 1 [id number] 177514 473814 155897 40 Band Large Acist Acist 1 25729 147423 879274 252956 20 Syringe Medical Systems Inc Medline Cardinal 1 [id number] 059229 48574 678740 5 Cath Pack Health Bag Microtek 1 2002S 081023 11462 532300 5 Luxury Penny Investments [employer] Inc. Terumo 6Fr Terumo 1 [id number] 046936 257433 163476 [address] St Mauricio 1 614260 087171 877584 012571 30 260cm J .035 wire Acist Hand Acist 1 36122 548241 835091 704011 5 Control Medical Systems Inc Acist Acist 1 13808 590703 455653 675691 5 Manifold Medical Systems Inc Tegaderm 4 3M 1 1626W 465102 493855 571174 5 x 4 Signature Audit [place] Stage Time Signature Unsigned Intra-Procedure 02/28/2017 Nasir Rodriguez 9:36:16 AM RT(R) (CV) Signatures Monitor : Nasir Rodriguez RT Signature : Date : Time : [facility] [address] [place] [address]
[2017-02-27 13:40] LABS: BASOPHILS 0.1 % (0-2); EOSINOPHILS 1.9 % (0-7); HEMATOCRIT 44.7 % (42.0-54.0); HEMOGLOBIN 14.8 g/dL (13.5-17.5); IMMATURE GRANULOCYTES 0.2 % (0-5); LYMPHOCYTES 10.3 % (15-50); MCH 26.2 pg (26.0-34.0); MCHC 33.1 g/dL (31.0-37.0); MCV 79.3 fL (80.0-100.0); MEAN PLATELET VOLUME 12.1 fL (7.4-10.4); MONOCYTES 7.6 % (2-11); NEUTROPHILS 79.9 % (40-80); PLATELET COUNT 154 10x3/uL (130-400); RBC 5.64 10x6/uL (4.20-6.10); RDW 13.5 % (11.5-14.5); WBC 8.7 10x3/uL (4.8-10.8)
[2017-02-27 13:55] LABS: ALKALINE PHOSPHATASE 105 U/L (46-116); ALT (SGPT) 17 U/L (10-68); BILIRUBIN - TOTAL 0.41 mg/dL (0.2-1.3); CALC OSMOLALITY 281 mosm/kg (275-300); CALCIUM 8.8 mg/dL (8.5-10.1); CARBON DIOXIDE 23.1 mmol/L (21.0-32.0); CHLORIDE - SERUM 98 mmol/L (98-107); CREATININE - SERUM 0.7 mg/dL (0.6-1.3); POTASSIUM - SERUM 4.2 mmol/L (3.5-5.1); SODIUM 134 mmol/L (136-145); UREA NITROGEN 13 mg/dL (7-18); eGFR NON AFRICAN AMERICAN > 90 mL/min (90-120)
[2017-02-27 13:57] LABS: GLUCOSE 345 mg/dL (74-106)
[2017-02-27 14:05] LABS: CHOL - HDL RATIO 8.6 ratio (2.3-4.9); CHOLESTEROL, TOTAL 216 mg/dL (0-200); CKMB 1.6 U/L (0.0-3.6); CREATINE KINASE 51 UL (21-232); HDL CHOLESTEROL 25 mg/dL (32-96); LDL CHOLESTEROL 142 mg/dL (0-100); LDL-HDL RATIO 5.7 ratio (1.5-3.5); TRIGLYCERIDE 247 mg/dL (30-200); TROPONIN-I 0.026 ng/mL (0.000-0.060)
[2017-02-27 16:11] LABS: CREATINE KINASE 47 UL (21-232); TROPONIN-I < 0.017 ng/mL (0.000-0.060)
[2017-02-27] MEDS ORDERED: LANTUS SOL100 UNIT/1 SC (17:14)
--- NOTE | 2017-02-27 17:15 | NUR ---
PATIENT TO ROOM FROM ER, PATIENT IS ALERT AND ORIENTED AT THIS TIME. PATIENT HAS A LEFT UPPER ARM IV THAT IS SL AT THIS TIME. PATIENT C/O OF CHEST PAIN. NITROPASTE APPLIED. PATIENT DENIES ANY OTHER NEEDS AT THIS TIME. BED LOW AND LCOKED. CALL LIGHT IN REACH. CPOC
[2017-02-27 18:05] VITALS: BP 162/81; Ht 182.9 cm; Wt 121.2 kg
--- NOTE | 2017-02-27 19:45 | NUR ---
PT IN BED RESTING. AROUSES TO VOICE. DENIES ANY NEEDS AT THIS TIME.
[2017-02-27 22:54] VITALS: BP 136/68
[2017-02-27 22:54] LABS: CKMB 1.3 U/L (0.0-3.6); CREATINE KINASE 53 UL (21-232); TROPONIN-I 0.029 ng/mL (0.000-0.060)
[2017-02-28 04:00] LABS: CKMB 0.9 U/L (0.0-3.6); CREATINE KINASE 58 UL (21-232); TROPONIN-I 0.022 ng/mL (0.000-0.060)
[2017-02-28 04:27] VITALS: BP 150/61
--- NOTE | 2017-02-28 06:47 | NUR ---
RN NOTE: PT HAS BEEN STABLE OVERNIGHT, AWAITING CARDIAC CATH TODAY. WILL CONT TO MONITOR.
--- NOTE | 2017-02-28 08:24 | NUR ---
CATH TEAM CALLED FOR PRE-OP. PRE-OP COMPLETED AND TEAM HERE TO TAKE PT. PT DENIES ANY CURRENT CP OR NEEDS. MOTHER AT BEDSIDE. PROVIDED PT WITH MORNING MEDICATIONS OF PLAVIX AND ASA ALONG WITH PRE-OP. WILL CPOC.
[2017-02-28 08:33] VITALS: BP 131/61
--- NOTE | 2017-02-28 10:00 | NUR ---
PT BACK FROM HEART CATH AND RESTING IN BED WITH FAMILY AT BEDSIDE. RR NONLABORED ON RA. NS CONNECTED AND INFUSING @100ML/HR VIA L.UPPER ARM PIV WITH DRSG CDI AND SWAB CAPS IN USE. PT HAS TR BAND TO R.WRIST WITH BAND CDI NO S/S OF BLEEDING OR HEMATOMA NOTED 11CC OF AIR IN PLACE WILL RELEASE PER PROTOCOL. PERIPHERAL PULSES INTACT. PT DENIES ANY CURRENT PAIN OR NEEDS. CL IN REACH, BED IN LOWEST, SIDE RAILS X2. WILL CPOC.
[2017-02-28 10:17] LABS: BASOPHILS 0.2 % (0-2); EOSINOPHILS 2.4 % (0-7); HEMATOCRIT 42.8 % (42.0-54.0); IMMATURE GRANULOCYTES 0.2 % (0-5); LYMPHOCYTES 14.3 % (15-50); MCH 26.2 pg (26.0-34.0); MCHC 32.7 g/dL (31.0-37.0); MCV 80.1 fL (80.0-100.0); MEAN PLATELET VOLUME 13.1 fL (7.4-10.4); MONOCYTES 8.7 % (2-11); NEUTROPHILS 74.2 % (40-80); PLATELET COUNT 157 10x3/uL (130-400); RBC 5.34 10x6/uL (4.20-6.10); RDW 13.8 % (11.5-14.5)
[2017-02-28 10:31] LABS: CALCIUM 9.1 mg/dL (8.5-10.1); CARBON DIOXIDE 27.3 mmol/L (21.0-32.0); CHLORIDE - SERUM 97 mmol/L (98-107); POTASSIUM - SERUM 4.2 mmol/L (3.5-5.1); SODIUM 136 mmol/L (136-145); UREA NITROGEN 12 mg/dL (7-18); WBC 5.8 10x3/uL (4.8-10.8)
[2017-02-28 10:35] LABS: CALC OSMOLALITY 289 mosm/kg (275-300); CREATININE - SERUM 0.9 mg/dL (0.6-1.3); GLUCOSE 424 mg/dL (74-106); eGFR NON AFRICAN AMERICAN > 90 mL/min (90-120)
[2017-02-28 12:13] VITALS: BP 120/56
--- NOTE | 2017-02-28 12:30 | NUR ---
3CC AIR REMOVED FROM R.TR BAND PT C/O ACHING SHOOTING PAINS IN THAT ARM. NO S/S OF BLEEDING OR HEMATOMA NOTED. WILL PROVIDE PT WITH PRN PAIN MEDICATION AND CTM. VSS AND PERIPHERAL PULSES INTACT. WILL CPOC.
--- NOTE | 2017-02-28 13:43 | NUR ---
PTS BLOOD SUGAR WAS CRITICAL AT 488. SS INSULIN 12 UNITS PROVIDED AND NEW MEDICATIONS ORDERED AND WILL CONTINUE TO MONITER. PERIPHERAL PULSES INTACT, VSS. R.WRIST TR BAND IN PLACE AND REMOVED 6CC MORE OF AIR AND NO S/S OF BLEEDING OR HEMATOMA NOTED. WILL CTM.
--- NOTE | 2017-02-28 14:09 | NUR ---
REMAINING AIR REMOVED FROM R.WRIST TR BAND AND STILL NO BLEEDING NOTED. PERIPHERAL PULSES INTACT AND VSS. NO CURRENT NEEDS AT THIS TIME. WILL CPOC.
[2017-02-28 15:33] VITALS: BP 127/47
--- NOTE | 2017-02-28 16:30 | NUR ---
FSBS 380 PROVIDED PT WITH 10 UNITS OF SS INSULIN. PT C/O R.ARM PAIN SHARP AND STABBING REQUESTED PRN PAIN MEDICATION AND WAS PROVIDED WITH HIS MORPHINE. PT VOICED THANKS. REMOVED TR BAND COMPLETELY AND BAND-AID NOW IN PLACE. SITE LOOKS GOOD, NO SWELLING BLEEDING OR HEMATOMA NOTED. PERIPHERAL PULSES INTACT, VSS. NO FURTHER NEEDS. WILL CPOC.
--- NOTE | 2017-02-28 19:54 | NUR ---
PT IS RESTING IN BED WITH EYES OPEN. ALERT AND ORIENTED X 3. VOICED COMPLAINT OF PAIN ALL OVER WITH A LEVEL OF 8. MEDICATED PER MAR. TELEMETRY UNIT IS ON AND INTACT. LEFT UPPER ARM SALINE LOCK NOTED. BANDAID IS INTACT TO RIGHT WRIST. NO S/S OF BLEEDING NOTED. SR'S ARE UP X 2 IN BED. CALL LIGHT AND BEDSIDE TABLE ARE WITHIN EASY REACH.
[2017-02-28 21:14] VITALS: BP 124/56
--- NOTE | 2017-02-28 21:55 | NUR ---
PT IS RESTING QUIETLY IN BED WITH EYES CLOSED. RESPS ARE EVEN AND UNLABORED. NO ACUTE DISTRESS NOTED. NO S@S OF BLEEDING NOTED FROM RIGHT WRIST INSERTION SITE. GOOD PULSES NOTED.
[2017-02-28 23:29] VITALS: BP 121/57
--- NOTE | 2017-03-01 00:01 | NUR ---
RESTING IN BED WITH EYES CLOSED.
--- NOTE | 2017-03-01 02:32 | NUR ---
PT RESTING IN BED WITH EYES CLOSED. NO DISTRESS NOTED.
[2017-03-01 04:05] VITALS: BP 116/61
--- NOTE | 2017-03-01 04:47 | NUR ---
PT RESTING IN BED WITH EYES CLOSED.
--- NOTE | 2017-03-01 05:30 | NUR ---
SALES EXEC AT BEDSIDE TO OBTAIN VITALS, WILL CONTINUE WITH PLAN OF CARE. CALL LIGHT IN REACH.
--- NOTE | 2017-03-01 05:35 | NUR ---
PT BATHING SELF THIS AM. REFUSING TO PUT TELEMETRY BACK ON AT THIS TIME.
--- NOTE | 2017-03-01 08:22 | NUR ---
PT C/O "NOT FEELING WELL" STATES RADHA FELT THIS WAY BEFORE WHEN I HAD TOO MANY MEDS. PTS BLOOD SUGAR HAS BEEN RUNNING HIGH SO I CHECKED IT AND IT WAS 299. PT IS CURRENTLY NPO FOR HEART CATH LATER TODAY SO NO ACTION REQUIRED. ASKED PT IF HE HAS BEEN MONITERING HIS URINE OUTPUT AND HE STATES "NO I FORGOT" BLADDER SCAN PERFORMED AND SHOWED 519ML IN BLADDER. DISCUSSED OPTIONS WITH PT AND HE REFUSED AN IN/OUT CATH OR WANTING A CUELLAR AND STATES "I CAN PEE NOW" PT VOIDED 350ML CLEAR YELLOW IN URINAL. NOTIFIED AND WILL CTM FOR S/S OF RETENTION. PT VERBALIZED UNDERSTANDING AND TEACHING OF BLADDER RETENTION AND ISSUES R/T IT. VSS, WILL CPOC, FAMILY AT BEDSIDE.
[2017-03-01 08:55] VITALS: BP 125/73
--- NOTE | 2017-03-01 09:04 | NUR ---
PROVIDED PT WITH PRN MORPHINE FOR R.ARM SHARP PAINS THAT COME AND GO. PTS L.UPPER ARM PIV WAS BURNING HIM A LITTLE AND PIV IN A BEND SPOT OF HIS ARM NO S/S OF SWELLING OR INFILTRATION BUT NO BLOOD RETURN. OFFERED TO RESITE PT BUT HE REFUSED AND WANTS TO CONTINUE WITH THIS ONE UNLESS IT DOES INFILTRATE OR LEAK. NO FURTHER NEEDS AT THIS TIME. WILL CPOC.
--- NOTE | 2017-03-01 11:58 | NUR ---
CATH TEAM CALLED FOR PRE-OP. PRE-OP COMPLETED. PTS L.UPPER ARM PIV INFILTRATED, NEW 22 GUAGE [facility] PT READY TO LEAVE NOW. NO FURTHER NEEDS.
[2017-03-01 12:05] VITALS: BP 123/70
--- NOTE | 2017-03-01 12:59 | NUR ---
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 VSS AND BEING MONITERED [id number] PER PROTOCOL. PT HAS A DRSG TO HIS R.GROIN CDI AND NO S/S OF HEMATOMA OR BLEEDING NOTED. PERIPHERAL PULSES INTACT. PTS L.WRIST PIV INFILTRATED BUT CAN STAY OUT PER . PT WAS GOING TO BE DISCHARGED LATER TODAY HOWEVER SPOKE WITH AND VERBALIZED OKAY FOR PT TO STAY OVERNIGHT HIS TRANSPORTATION WILL ONLY BE AVAILABLE IN THE MORNING. PT DENIES ANY FURTHER NEEDS AT THIS TIME WILL CPOC.
--- NOTE | 2017-03-01 13:53 | NUR ---
VSS AND STILL BEING MONITERED. PT RESTING QUIETLY AND REMAINS FLAT. R.MADELEINE DRSG CDI NO S/S OF BLEEDING OR HEMATOMA NOTED. PERIPHERAL PULSES INTACT. PT DENIES ANY CURRENT PAIN OR NEEDS. CL IN REACH, FAMILY AT BEDSIDE. WILL CPOC.
--- NOTE | 2017-03-01 14:00 | NUR ---
PT REFUSES SCDS AND IS AMBULATORY
[2017-03-01 15:49] VITALS: BP 110/67
--- NOTE | 2017-03-01 16:30 | NUR ---
PTS 4 HOUR LAY COMPLETED. R.GROIN REMAINS CLEAN AND DRY, NO S/S OF HEMATOMA OR BLEEDING NOTED. PERIPHERAL PULSES INTACT, VSS. ASSISTED PT TO SIT UP IN BED REQUESTED. PT STATES HE IS FEELING WELL OVERALL. FSBS 418 12 UNITS SS INSULIN GIVEN. PT DENIES ANY FURTHER NEEDS AT THIS TIME, SISTER AT BEDSIDE. WILL CPOC.
--- NOTE | 2017-03-01 19:45 | NUR ---
PT RESTING IN BED. ASKS FOR SOMETHING FOR PAIN WHEN I BRING NIGHT TIME MEDS. PT STATES ITS HIS RIGHT ARM. 07/24. PT DENIES ANY OTHER NEEDS. NO S/S OF DISTRESS. WILL CPOC
[2017-03-01 21:38] VITALS: BP 139/75
--- NOTE | 2017-03-01 21:44 | NUR ---
PT ASLEEP. RESPIRATIONS EVEN AND UNLABORED. LAYING ON RIGHT SIDE. PT AROUSES TO VERBAL STIMULI. PT GIVEN AN ULTRAM. FSBS IS 367 10 UNITS OF HUMALOG GIVEN. 40 OF LANTUS WELL. PT STATES HE TAKES THE LANTUS AT HOME. SNACK OFFERED. PT DENIES ANY OTHER NEEDS. NO S/S OF DISTRESS. WILL CPOC
--- NOTE | 2017-03-02 00:35 | NUR ---
LEFT WRIST IV REMOVED. CATH INTACT. BANDAGE APPLIED. PT DENIES ANY DISCOMFORT. DENIES ANY NEEDS. WILL CPOC
[2017-03-02 01:30] VITALS: BP 122/46
[2017-03-02 04:53] VITALS: BP 123/81
[2017-03-02 08:26] VITALS: BP 110/57
[2017-03-02] MEDS ORDERED: COREG12.5 MG PO (09:39)
[2017-03-02] MEDS ORDERED: PLAVIX75 MG PO (09:39)
[2017-03-02] MEDS ORDERED: LIPITOR40 MG PO (09:40)
--- NOTE | 2017-03-02 10:15 | NUR ---
ALL MORNING MEDICATIONS GIVEN. SHIFT ASSESSMENT COMPLETED AND NO CHANGES NOTED SINCE YESTERDAYS ASSESSMENT. PT READY TO BE DISCHARGED TODAY AND WAITING ON HAS BEEN WAITING ON HIS RIDE. HIS MOM IS NOW HERE FOR TRANSPORTATION. TELEMETRY REMOVED AND SENT BACK TO [employer]. BELONGINGS COLLECTED AND IN BAGS, PT DRESSED AND READY. DISCHARGE TEACHING PROVIDED AND PAPERS SIGNED. HARD SCRIPTS GIVEN FOR PLAVIX, LIPITOR AND COREG. PT VERBALIZED UNDERSTANDING AND DENIES ANY QUESTIONS OR CONCERNS. WILL CALL FOR WHEELCHAIR TRANSPORTATION AT THIS TIME.
--- NOTE | 2017-03-02 14:14 | OP ---
PATIENT NAME: JOSE MOTA MEDICAL RECORD: [id number] :61 LOCATION:D.M2 D.2109 ADMISSION DATE:02/27/17 SURGEON: SALMA MORRIS MD DATE OF OPERATION: 03/01/2017 PROCEDURES: 1. PTCA stent RCA. 2. PTCA stent RCA and PDA. 3. Selective coronary angiography. INDICATION: Angina and coronary artery disease. PROCEDURE IN DETAIL: After informed consent was obtained and after a detailed explanation of risks, benefits as well as alternative therapies, the patient elected to proceed with angiogram and angioplasty. The right femoral area was prepped and draped in the normal sterile fashion. The right femoral artery was cannulated via modified Seldinger technique with placement of a 7-Khmer sheath. All catheters exchanged through this sheath. FINDINGS: The right coronary has a total occlusion throughout the distal right coronary and the PDA. This was addressed with a 1.5 balloon. Stenting was undertaken proximal to distal with 2.5 x 15, 2.25 x 38, 2.25 x 22, all Rosendo stents. Result was 0% residual stenosis. OVERALL IMPRESSION: Successful percutaneous transluminal coronary angioplasty stent of the right coronary artery and right posterior descending artery, both going from 100% initial stenosis that was chronic, total occlusion to 0% residual stenosis. TRANSINT:[id number] Voice Confirmation ID: [id number] DOCUMENT ID: [id number] SALMA MORRIS MD at 1414 CC: [id number] DICTATION DATE: 03/01/17 1234 CHECKMAN: 03/01/17 1258 DIS IN 03/02/17 [id number] [place] [address]
--- NOTE | 2017-03-02 14:14 | OP ---
PATIENT NAME: JOSE MOTA MEDICAL RECORD: [id number] :61 LOCATION:D.M2 D.2109 ADMISSION DATE:02/27/17 SURGEON: SALMA MORRIS MD DATE OF OPERATION: 02/28/2017 PROCEDURES: 1. PTCA and stent of LAD. 2. Intravascular ultrasound of the LAD. 3. Left heart catheterization. 4. Selective coronary angiography. 5. Left ventriculogram. INDICATION: Angina and coronary artery disease. PROCEDURE IN DETAIL: After informed consent was obtained and after detailed explanation of risks, benefits as well as alternative therapies, the patient elected to proceed with angiogram and angioplasty. The right radial area was prepped and draped in normal sterile fashion. The right radial artery was cannulated via modified Seldinger technique with placement of 6-Zimbabwean sheath. All catheters were exchanged through this sheath. FINDINGS: Left ventriculogram was performed in standard 30-degree CENTENO view reveals preserved cardiac wall motion, ejection fraction of 60%. SELECTIVE CORONARY ANGIOGRAPHY: 1. Left main showed no evidence of significant angiographic disease. 2. Left anterior descending has 81% stenosis proximally confirmed by intravascular ultrasound. 3. Left circumflex shows moderate irregularities, but no flow-limiting stenosis. 4. Right coronary is totally occluded in the mid vessel. PTCA AND STENT OF THE LAD: Decision was made to intervene on the LAD secondary to radial approach and the guide not sitting well for the RCA. It was selectively approached with a 7-Zimbabwean groin approach. The LAD was intervened with a 3.5 x 15 mm Clayhole stent. Result was 0% residual stenosis. OVERALL IMPRESSION: Successful PTCA and stent of the LAD going from 81% initial stenosis to 0% residual. Plan for PTCA and stent of the RCA in a.m. TRANSINT:[id number] Voice Confirmation ID: [id number] DOCUMENT ID: [id number] SALMA MORRIS MD at 1414 CC: [id number] DICTATION DATE: 02/28/17930 DIGITAL MEDIA COORDINATOR: 02/28/17 1044 DIS IN 03/02/17 [address] [place] [address]
--- NOTE | 2017-03-02 14:14 | DS ---
PATIENT:JOSE MOTA :61 MEDICAL RECORD: [id number] DISCHARGE SUMMARY ADMISSION DATE: 02/27/17 DISCHARGE DATE: 03/02/17 DATE OF DISCHARGE: 03/01/2017 DIAGNOSES: 1. Unstable angina. 2. Coronary artery disease. 3. Percutaneous transluminal coronary angioplasty stent of left anterior descending and right coronary artery at this admission. HOSPITAL COURSE: Mr. Mota presents with unstable anginal symptomatology, found to have significant disease of the LAD and RCA, underwent successful PTCA stent of above territories and was discharged home with the addition of aspirin and Plavix to his medical regimen. We will follow up with [facility] in 1 month. TRANSINT:[id number] Voice Confirmation ID: [id number] DOCUMENT ID: [id number] SALMA MORRIS MD at 1414 CC: [id number] DICTATION DATE: 03/01/17 1232 RN BIRTHING: 03/01/17 1237 DIS IN 03/02/17 [id number] [place] [address]
--- NOTE | 2017-03-02 14:14 | HP ---
PATIENT: JOSE MOTA MEDICAL RECORD: [id number] ACCOUNT: [id number] LOCATION:D. D.2109 : 61 ADMISSION DATE: 02/27/17 HISTORY AND PHYSICAL EXAMINATION DIAGNOSES: 1. Unstable angina. 2. Coronary artery disease. 3. Previous multivessel percutaneous transluminal coronary angioplasty stent. 4. Hypertension. 5. Hyperlipidemia. HISTORY OF PRESENT ILLNESS: Mr. Mota began having chest pain, chest discomfort yesterday, has persisted and having multiple episodes of chest pain today. It is just like that of his previous angina. His last cardiac stent was this summer. PHYSICAL EXAMINATION: GENERAL APPEARANCE: Well-nourished, well-developed, appears stated age. Level of distress, comfortable. PSYCHIATRIC: Mental status, alert, normal affect. Orientation, oriented to time, place and person. EYES: Lids and conjunctiva, noninjected. No discharge, no pallor. ENT: Lips, teeth, gums, normal dentition. Oropharynx, no cyanosis, no pallor. NECK: Carotid arteries, bilateral normal upstroke, no bruits, no thrills. JUGULAR VEINS: No jugular venous pressure or distention. CERVICAL LYMPH NODES: Nontender, nonenlarged. THYROID: Not enlarged. Nontender. No nodules. LUNGS: Respiratory effort, unlabored. CHEST: Normal curvature. No thoracic deformity. No chest wall tenderness. Percussion, resonant. Auscultation, clear. No wheezes, no rales, no rhonchi. CARDIOVASCULAR: Precordial exam, nondisplaced. No heaves or pericardial thrills. Rate and rhythm, regular. Heart sounds, normal S1, normal S2. No S3, no gallop, no rub. Systolic murmur, not heard. Diastolic murmur, not heard. EXTREMITIES: No cyanosis, no edema. Peripheral pulses, full and equal in all extremities, except as noted. No bruits appreciated. ABDOMEN: Soft, nondistended. Normal aorta. No bruit. Nontender. No masses. Liver, nontender, no hepatomegaly. Spleen, nontender, no splenomegaly. MUSCULOSKELETAL: No joint tenderness. No joint swelling. No erythema. NEUROLOGICAL: Normal gait, normal strength, normal tone. SKIN: Warm and dry. REVIEW OF SYSTEMS: The patient reports easy bruising but reports no swollen glands. The patient reports no fever, no night sweats, no significant weight gain, no significant weight loss. No significant exercise tolerance. The patient reports no dry eyes, no irritation, no vision change. Patient reports no difficulty hearing and no ear pain. Patient reports no frequent nose bleeds or nose and sinus problems. Patient reports on arm pain on exertion. No shortness of breath while lying down. No history of heart murmur. Patient reports no cough, no wheezing or coughing up blood. Patient reports no abdominal pain, no vomiting. Normal appetite. No diarrhea and not vomiting blood. No nausea and no constipation. Patient reports no incontinence. No difficulty urinating. No hematuria. No increased frequency. Patient reports no muscle aches. No weakness, no arthralgias, no back pain. No swelling of the extremities. Patient reports no abnormal mole, no jaundice, no rashes. 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 No weakness and no numbness. No seizures, dizziness, or headaches. The patient reports no depression, no sleep disturbance, feeling safe in a relationship and no alcohol abuse. Patient reports on fatigue. Reports no runny nose or sinus pressure. No itching, no hives, and no frequent sneezing. OVERALL IMPRESSION: Unstable angina in an escalating unstable pattern. Most likely, he has recurrent hemodynamically significant coronary artery disease. We will proceed with coronary angiography. Further care depends upon findings of the angiography. TRANSINT:[id number] Voice Confirmation ID: [id number] DOCUMENT ID: [id number] SALMA MORRIS MD at 1414 CC: [id number] DICTATION DATE: 02/27/17 160 STAY CUTTER: 02/27/17 1618 DIS IN 03/02/[address] [facility] [address] [place] [address]
== END 2017-03-02 10:30 | disposition home or self-care (01) ==
LOC: OBSVTIME → D.ER 12:42 → D.OPS 12:42 → D.M2 15:26 → D.ER 15:26 → OBSVTIME 15:26 → EDSTATUS 02-28 11:00 → D.OPS 03-02 10:30 → D.M2 03-02 10:30
PROVIDERS: Family Medicine; Internal Medicine Interventional Cardiology
DX: I25.110 Atherosclerotic heart disease of native coronary artery with unstable angina pectoris (principal); I10 Essential (primary) hypertension; Z95.5 Presence of coronary angioplasty implant and graft; E78.5 Hyperlipidemia, unspecified
CPT/HCPCS: 93458; 92978; C9600 ×2; C9601

== ENCOUNTER 2017-03-15 14:39 | Observation (INO) | payer MEDICARE ==
[~2017-03-15] VITALS: Ht 182.9 cm; Wt 108.0 kg
[~2017-03-15 14:39] MED LIST changes: +LANTUS SOL100 UNIT/1 SC; +LIPITOR40 MG PO
[2017-03-15 16:13] LABS: BASOPHILS 0.3 % (0-2); EOSINOPHILS 2.4 % (0-7); HEMATOCRIT 43.9 % (42.0-54.0); HEMOGLOBIN 14.3 g/dL (13.5-17.5); IMMATURE GRANULOCYTES 0.2 % (0-5); MCH 26.7 pg (26.0-34.0); MCHC 32.6 g/dL (31.0-37.0); MCV 82.1 fL (80.0-100.0); MEAN PLATELET VOLUME 12.8 fL (7.4-10.4); MONOCYTES 8.7 % (2-11); NEUTROPHILS 75.4 % (40-80); PLATELET COUNT 130 10x3/uL (130-400); RBC 5.35 10x6/uL (4.20-6.10); RDW 14.2 % (11.5-14.5); WBC 5.8 10x3/uL (4.8-10.8)
[2017-03-15 16:17] LABS: KETONE - SERUM NEGATIVE (NEGATIVE)
[2017-03-15 16:28] LABS: ALKALINE PHOSPHATASE 153 U/L (46-116); ALT (SGPT) 21 U/L (10-68); BILIRUBIN - TOTAL 0.27 mg/dL (0.2-1.3); CALCIUM 8.6 mg/dL (8.5-10.1); CARBON DIOXIDE 23.8 mmol/L (21.0-32.0); CHLORIDE - SERUM 96 mmol/L (98-107); CREATININE - SERUM 1.1 mg/dL (0.6-1.3); POTASSIUM - SERUM 4.4 mmol/L (3.5-5.1); PROTEIN - SERUM 7.3 g/dL (6.4-8.2); SODIUM 130 mmol/L (136-145); UREA NITROGEN 11 mg/dL (7-18); eGFR NON AFRICAN AMERICAN 74 mL/min (90-120)
[2017-03-15 16:31] LABS: CALC OSMOLALITY 290 mosm/kg (275-300); GLUCOSE 658 mg/dL (74-106)
[2017-03-15 22:44] LABS: APPEARANCE CLEAR (CLEAR); BACTERIA FEW /hpf (NONE SEEN); BILIRUBIN NEGATIVE (NEGATIVE); COLOR STRAW (YELLOW); EPITHELIAL CELLS OCC /hpf (0-5); GLUCOSE 1000 mg/dL (NEGATIVE); KETONE NEGATIVE (NEGATIVE); NITRITE NEGATIVE (NEGATIVE); PROTEIN 2+ mg/dL (NEGATIVE); RED CELLS - URINE 0-5 /hpf (0-5); SPECIFIC GRAVITY 1.015 (1.005-1.020); UROBILINOGEN NORMAL (NORMAL); WHITE CELLS - URINE OCC /hpf (0-5); YEAST RARE /hpf (NONE SEEN)
--- NOTE | 2017-03-16 01:10 | NUR ---
DULCE MARTINEZ BROUGHT PATIENT FROM ER. SHE SAID " SAID TO CALL HIM WITH THE BLOOD SUGAR AT 0200 AND HE WILL TELL YOU WHETHER OR NOT TO TREAT IT."
[2017-03-16] MEDS ORDERED: NEURONTIN 300300 MG PO (01:38)
--- NOTE | 2017-03-16 02:07 | NUR ---
CALLED THE ER, SPOKE WITH DULCE TINOCO. SHE SAID SHE WILL NOTIFY OF THE BLOOD SUGAR AND CALL ME BACK.
[2017-03-16 02:08] VITALS: BP 167/94; BMI 32.3
--- NOTE | 2017-03-16 02:26 | NUR ---
DULCE TINOCO CALLED BACK SHE SAID SHE NOTIFIED AND HE STATED "MIGHTY FINE." AND DID NOT GIVE ANY NEW ORDERS.
--- NOTE | 2017-03-16 03:28 | NUR ---
PATIENT IS SITTING UP IN THE RECLINER, WITH A SANDWHICH IN HIS HAND ALMOST ALL THE WAY EATEN, AND 2- 2% MILKS ALEADY EMPTY, 1 CHOCOLATE MILK NOT OPENED YET, A 1/2 A CUP OF GRAPES THAT CAME WITH THE SANDWHICH, AND 2 UNOPENED VANILLA PUDDINGS. I EXPLAINED TO PATIENT THAT HE IS HERE FOR HIS HYPERGLYCEMIA, AND WE ARE TRYING TO GET IT UNDER CONTROL. I EXLAINED THAT THE CHOCOLATE MILK AND VANILLA PUDDINGS ARE NOT GOOD CHOICES THEY WILL SPIKE UP THE BLOOD SUGAR. PATIENT APPOLOGIZED AND VERBALIZED UNDERSTANDING. I TOLD THE GAS PUMPING STATION HELPER TO NOTIFY ME BEFORE BRINGING HIM ANY OTHER FOOD OR DRINKS.
[2017-03-16 05:35] LABS: CALC OSMOLALITY 283 mosm/kg (275-300); CALCIUM 8.3 mg/dL (8.5-10.1); CHLORIDE - SERUM 100 mmol/L (98-107); CREATININE - SERUM 0.9 mg/dL (0.6-1.3); POTASSIUM - SERUM 4.6 mmol/L (3.5-5.1); SODIUM 133 mmol/L (136-145); UREA NITROGEN 11 mg/dL (7-18); eGFR NON AFRICAN AMERICAN > 90 mL/min (90-120)
[2017-03-16 05:42] VITALS: BP 161/86
[2017-03-16 05:42] LABS: GLUCOSE 441 mg/dL (74-106)
--- NOTE | 2017-03-16 06:15 | NUR ---
CALLED PHARMACY SPOKE WITH AMANDA, FALL INTERN ASKED HER TO BRING UP THE HUMALIN R, TOLD HER IT IS URGENT.
--- NOTE | 2017-03-16 07:35 | NUR ---
PT AOX4 RESP EVEN AND NONLABORED PT DENIES NEEDS AT THIS TIME IV TO RIGHT HAND PATENT AND INTACT AT THIS TIME SRX2 BED AT LOWEST SETTING CALL LIGHT WITHIN REACH AT THIS TIME
[2017-03-16 09:06] VITALS: BP 175/100
[2017-03-16 10:42] VITALS: Ht 182.9 cm; Wt 108.0 kg
--- NOTE | 2017-03-16 10:56 | NUR ---
Patient Name: JOSE MOTA Admission Status: ER Accout number: [id number] Admission Date: 03-16-2017 : 1965 Admission Diagnosis: Attending: PRERNA ROSS Current LOS: 1 Anticipated DC Date: 03-20-2017 Planned Disposition: Home Primary Insurance: [employer] MEDICARE ADV Discharge Planning Comments: CM MET WITH PATIENT REGARDING D/C NEEDS AND PLANS. PATIENT STATED HE LIVES ALONE AND WILL DRIVE HIMSELF HOME AT DISCHARGE. PATIENT STATED HE HAS 2 STEPS W/RAILS TO ENTER HOME AND NO STAIRS INSIDE. PATIENT IS INDEPENDENT WITH HIS CARE AND HAS A GLUCOMETER BUT STATED HE DOES NOT CHECK HIS SUGARS LIKE HE SHOULD. PATIENTS PCP IS DR. JORY ARCE AT [facility]. PATIENT STATED HE WAS A [facility] PATIENT AND CM CALLED ERNIE AT [facility] - SHE TOOK NAME AND PUT PATIENT ON LIST FOR A BED AT [facility]. CM NEEDS TO CALL DAILY FOR BED. PATIENT DID NOT WANT HOME HEALTH BUT WOULD BENEFIT FROM IT FOR DIABETES TEACHING. CM WILL CONTINUE TO FOLLOW PATIENT WITH D/C NEEDS AND PLANS. PCP DR. ADELA ARCE AT [facility] ([facility]) [phone] Factory Hand: Kristal Lucio Is the patient Alert and Oriented? Yes 0 * How many steps to enter\exit or inside your home? 2 0 * PCP DR. ADELA ARCE 0 * Pharmacy [facility]. 0 * Preadmission Environment Home Alone 0 * ADLs Independent 0 * Equipment Glucometer 0 * List name and contact numbers for known caregivers / representatives who currently or will assist patient after discharge: [facility] [phone] 0 * Community resources currently utilized None 0 * Additional services required to return to the preadmission environment? Yes 0 * Can the patient safely return to the preadmission environment? Yes 0 * Has this patient been hospitalized within the prior 30 days at any hospital? No 0 Grand Total: 0
[2017-03-16 12:30] VITALS: BP 176/77
--- NOTE | 2017-03-16 13:24 | HP ---
PATIENT: JOSE MOTA MEDICAL RECORD: [id number] ACCOUNT: [id number] LOCATION:D.MS [address] : 61 ADMISSION DATE: 03/16/17 HISTORY AND PHYSICAL EXAMINATION REASON FOR ADMISSION: Uncontrolled diabetes and lightheadedness. HISTORY OF PRESENT ILLNESS: The patient is a 52-year-old male with metabolic syndrome who is mostly noncompliant on his diet. I reviewed his hospital records, every time he has been admitted he had a blood sugar over 500. In fact underwent a stent 2 weeks ago to his LAD for unstable angina. Blood sugar was 600 at that time. The patient followed at the [place] [facility]. He says when he is compliant with his insulin, his sugars are well controlled. He said he was out of insulin needles for the last 3 days and that is ____ he thinks. Denies any fever or chest pain. Admission through the ED since his blood sugars were excess of 500, ketones were negative. PAST MEDICAL HISTORY: AODM, ASHD post-non STEMI recently with RCA stent, unstable angina with LAD stent 02/27/2017, history of stroke, hyperlipidemia, hypertension, GERD, restless leg syndrome, diabetic neuropathy. SOCIAL HISTORY: Denies smoking. 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 , does take care of his mother. FAMILY HISTORY: Mother with CAD, diabetes. Father with lung cancer. MEDICATIONS: Plavix 75 mg p.o. daily, baclofen 10 mg p.o. t.i.d., lisinopril 40 mg a day, atorvastatin 40 mg at h.s., aspirin 81 mg a day, trazodone 50 mg at h.s., tramadol 50 mg q. 6 hours p.r.n. pain, gabapentin 300 mg p.o. every 6 hours, metformin 1000 mg p.o. b.i.d., Lantus 50 units subQ b.i.d. a.c. ALLERGIES: PENICILLIN. REVIEW OF SYSTEMS: CONSTITUTIONAL: No fever, fatigue, or weight change. HEENT: No recent visual change, sinus congestion, sore throat, or hearing difficulty. RESPIRATORY: No severe cough. CARDIAC: No exertional chest pain, claudication or edema. GASTROINTESTINAL: No nausea, vomiting, change in stools or blood per rectum. GENITOURINARY: Has nocturia once nightly. No dysuria. ENDOCRINE: Denies polyuria, polydipsia, heat or cold intolerance. NEUROLOGIC: Chronic neuropathy in his feet. Said he got lightheaded and nearly fainted today and he knew his blood sugar was high. Apparently, does not have a glucometer currently? INTEGUMENT: No rash or itching. PSYCHIATRIC: Denies depressed mood. PHYSICAL EXAMINATION: VITAL SIGNS: Temperature 98.2 Fahrenheit, pulse 115 and regular, respirations were 14, and blood pressure 170/92, sat 100% on room air. GENERAL: Alert and oriented. HEENT: Clear. Pupils reactive. Oropharynx unremarkable. NECK: No bruits or masses. CHEST: Clear. HISTORY AND PHYSICAL [id number] JOSE MOTA HEART: Regular without murmur. ABDOMEN: Obese, soft, nontender. EXTREMITIES: He has 1+ bipedal edema. NEUROLOGICAL: Oriented to person, place, and time. Cranial nerves intact. Decreased sensation to touch the balls of both feet. LABORATORY DATA: White count is 5800, H and H of 14 and 43.9. Electrolytes: Sodium 133, blood sugar of 441, BUN and creatinine 11 and 0.9, CO2 is 25, potassium is 4.6. Urinalysis unremarkable. Serum ketones are negative. CT scan of the abdomen 02/25/2017, which showed hepatic steatosis, right inguinal hernia. ASSESSMENT: 1. Noncompliance diabetes mellitus, uncontrolled. 2. Near syncope secondary to above. 3. Coronary artery disease post recent stents to the right coronary artery and left anterior descending. 4. Remote Q-wave myocardial infarction. 5. Hyperlipidemia. 6. Diabetic neuropathy. 7. Obesity. 8. Gastroesophageal reflux disease. PLAN: The patient is admitted, given insulin in the ED. Strict diet will be enforced as he has been witnessed in the hospital to be mostly diet noncompliant, sliding-scale insulin. Further workup pending clinical course. TRANSINT:[id number] Voice Confirmation ID: [id number] DOCUMENT ID: [id number] PRERNA ROSS MD at 1324 CC: [id number] DICTATION DATE: 03/16/17705 EMD TEACHER: 03/16/17 0935 [facility] [address] [address] [place] [address]
[2017-03-16] MEDS ORDERED: PROTONIX40 MG PO (13:37)
[2017-03-16] MEDS ORDERED: HUMULIN R100 U/ML SC (13:38)
--- NOTE | 2017-03-16 14:04 | NUR ---
Nutrition Consult: Consult received for diabetic diet education. Pt reported that he lives alone in a camper and "things are hard right now." He said that he has had a stroke and he has a difficult time remembering things. Pt said that he likes desserts and drinks milk a lot. Spoke with pt regarding CHO containing food groups and portion sizes. Encouraged pt to limit amount of milk he drinks and only have sweets on occasion. Stressed importance of 3 meals and 3 snacks each day. Provided pt with written info on above as well as "the plate method" picture. RD name and phone number given to pt and pt encouraged to contact RD with any questions/concerns. Thank you for the consult. RD following.
--- NOTE | 2017-03-16 14:15 | NUR ---
CM REASSESSMENT NOTE: PATIENT IS BEING DISCHARGED TODAY. REFUSED HOME HEALTH. DIABETES TEACHING FROM NURSE. PATIENT IS DRIVING HIMSELF HOME.
--- NOTE | 2017-03-16 15:05 | NUR ---
IV DISCONTINUED WITH CATHETER INTACT AT THIS TIME PT GIVEN DISCHARGE INSTRUCTIONS AT THIS TIME PT TAKEN VIA WHEELCHAIR VIA PRIVATE VEHICLE AT THIS TIME
== END 2017-03-16 15:25 | disposition home or self-care (01) ==
LOC: D.ER 14:39 → OBSVTIME 22:47 → D.MS 22:47
PROVIDERS: Emergency Medicine; ADMIT Family Medicine
DX: E11.65 Type 2 diabetes mellitus with hyperglycemia (principal); E11.40 Type 2 diabetes mellitus with diabetic neuropathy, unspecified; G25.81 Restless legs syndrome; I25.2 Old myocardial infarction; Z91.11 Patient's noncompliance with dietary regimen; I10 Essential (primary) hypertension; E78.5 Hyperlipidemia, unspecified; K21.9 Gastro-esophageal reflux disease without esophagitis

== ENCOUNTER 2017-04-04 10:54 | Inpatient (IN) | payer MEDICARE ==
[~2017-04-04] VITALS: Ht 182.9 cm; Wt 109.5 kg
[~2017-04-04 10:54] MED LIST changes: +HUMULIN R100 U/ML SC; +NEURONTIN 300300 MG PO; +PROTONIX40 MG PO
[2017-04-04 12:05] LABS: BASOPHILS 0.2 % (0-2); EOSINOPHILS 2.1 % (0-7); HEMATOCRIT 44.4 % (42.0-54.0); HEMOGLOBIN 14.5 g/dL (13.5-17.5); IMMATURE GRANULOCYTES 0.2 % (0-5); LYMPHOCYTES 13.4 % (15-50); MCH 26.4 pg (26.0-34.0); MCHC 32.7 g/dL (31.0-37.0); MCV 80.7 fL (80.0-100.0); MEAN PLATELET VOLUME 12.5 fL (7.4-10.4); MONOCYTES 7.1 % (2-11); PLATELET COUNT 127 10x3/uL (130-400); RDW 14.2 % (11.5-14.5); WBC 4.8 10x3/uL (4.8-10.8)
[2017-04-04 12:11] LABS: ALKALINE PHOSPHATASE 94 U/L (46-116); ALT (SGPT) 19 U/L (10-68); BILIRUBIN - TOTAL 0.52 mg/dL (0.2-1.3); CALCIUM 8.9 mg/dL (8.5-10.1); CARBON DIOXIDE 24.8 mmol/L (21.0-32.0); CHLORIDE - SERUM 93 mmol/L (98-107); CREATININE - SERUM 1.1 mg/dL (0.6-1.3); POTASSIUM - SERUM 3.9 mmol/L (3.5-5.1); PROTEIN - SERUM 6.7 g/dL (6.4-8.2); SODIUM 129 mmol/L (136-145); UREA NITROGEN 7 mg/dL (7-18); eGFR NON AFRICAN AMERICAN 74 mL/min (90-120)
[2017-04-04 12:14] LABS: CALC OSMOLALITY 279 mosm/kg (275-300); KETONE - SERUM SMALL mg/dL (NEGATIVE)
[2017-04-04 12:15] LABS: GLUCOSE 509 mg/dL (74-106)
--- NOTE | 2017-04-04 17:00 | NUR ---
REC'D PT FROM ER VIA WHEELCHAIR. PT AAOX4 DENIES ANY PAIN UPON ARRIVAL. ACCOMPANIED BY HOSPITAL STAFF, NO FAMILY PRESENT AT THIS TIME. PT ON ROOM AIR. CONNECTED TO CMM PROGRAMMER, VSS. PT HAS PERSONAL CELL PHONE, GLASSES, PANTS, SHOES AND A SHIRT, REQUESTS THAT BELONGINGS STAY AT THE BEDSIDE. BED LOCKED IN LOWEST POSITION, BED ALARM ACTIVE, CALL LIGHT IN REACH, INSTRUCTED PT ON USE OF CALL LIGHT, PT VERBALIZED AND DEMONSTRATES USE OF CALL LIGHT. LEFT HAND PIV WITH INSULIN INFUSING. WILL CONTINUE TO MONITOR PT.
[2017-04-04 17:30] LABS: HEMOGLOBIN A1C 11.2 % (4.8-6.0)
--- NOTE | 2017-04-04 17:30 | NUR ---
FSBS CHECKED. GTT TURNED OF AND DR. TAY PAGED.
[2017-04-04] MEDS ORDERED: OMEPRAZOLE40 MG PO (17:39)
--- NOTE | 2017-04-04 18:00 | NUR ---
RECIEVED CALL FROM GALA STANFORD. ORDERS RECIEVED FOR S/S INSULIN.
[2017-04-04 18:01] VITALS: BP 157/99; BMI 32.6
[2017-04-04 19:00] VITALS: BP 186/110
--- NOTE | 2017-04-04 19:10 | NUR ---
REPORT RECIEVED. ASSESSMENT COMPLETE PER FLOW SHEET. VSS. DENIES NEEDS. FAMILY AT BEDSIDE. WILL CONTINUE TOMONITOR
[2017-04-04 20:00] VITALS: BP 171/97
[2017-04-04 20:47] LABS: CALC OSMOLALITY 279 mosm/kg (275-300); CALCIUM 8.7 mg/dL (8.5-10.1); CARBON DIOXIDE 27.8 mmol/L (21.0-32.0); CHLORIDE - SERUM 100 mmol/L (98-107); CREATININE - SERUM 0.9 mg/dL (0.6-1.3); MAGNESIUM - SERUM 1.5 mg/dL (1.8-2.4); POTASSIUM - SERUM 3.8 mmol/L (3.5-5.1); SODIUM 135 mmol/L (136-145); UREA NITROGEN 6 mg/dL (7-18); eGFR NON AFRICAN AMERICAN > 90 mL/min (90-120)
[2017-04-04 20:49] LABS: GLUCOSE 311 mg/dL (74-106)
[2017-04-04 21:00] VITALS: BP 147/82
--- NOTE | 2017-04-04 21:00 | NUR ---
FAMILY AT BEDSIDE. GIVEN UPDATE. VSS NO NEW CHANGES WILL CONTINUE TO MONITOR
[2017-04-04 22:00] VITALS: BP 130/91
[2017-04-04 23:00] VITALS: BP 165/85
--- NOTE | 2017-04-04 23:00 | NUR ---
REASSESSMENT COMPLETE PER FLOW SHEET. VSS.NO NEW CHANGES WILL CONTINUE RAE ONITOR
[2017-04-05] VITALS (8 sets, daily range): BP systolic 124–177; BP diastolic 53–96; Ht 182.9 cm; Wt 109.5 kg
--- NOTE | 2017-04-05 01:00 | NUR ---
SEDATION PAUSED NEURO CHECK COMPLETE PT FOLLOWS COMMANDS SEDATION TURNED BACK ON VSS NO NEW CHANGES WILL CONTINUE TO MONITOR
--- NOTE | 2017-04-05 03:29 | NUR ---
REASSESSMENT COMPLETE PER FLOW SHEET. VSS. NO NEW CHANGES PT SLEEPING COMFORTABLY WILL CONTINUE TO MONITOR
[2017-04-05 05:06] LABS: BASOPHILS 0.2 % (0-2); EOSINOPHILS 3.4 % (0-7); HEMATOCRIT 43.1 % (42.0-54.0); IMMATURE GRANULOCYTES 0.2 % (0-5); LYMPHOCYTES 20.8 % (15-50); MCH 25.9 pg (26.0-34.0); MCHC 32.5 g/dL (31.0-37.0); MCV 79.8 fL (80.0-100.0); MONOCYTES 9.8 % (2-11); NEUTROPHILS 65.6 % (40-80); PLATELET COUNT 130 10x3/uL (130-400); RDW 14.4 % (11.5-14.5); WBC 5.6 10x3/uL (4.8-10.8)
[2017-04-05 05:20] LABS: ALBUMIN 2.8 g/dL (3.4-5.0); ALKALINE PHOSPHATASE 81 U/L (46-116); ALT (SGPT) 16 U/L (10-68); BILIRUBIN - TOTAL 0.41 mg/dL (0.2-1.3); CALC OSMOLALITY 282 mosm/kg (275-300); CALCIUM 8.9 mg/dL (8.5-10.1); CARBON DIOXIDE 31.4 mmol/L (21.0-32.0); CHLORIDE - SERUM 101 mmol/L (98-107); CREATININE - SERUM 0.9 mg/dL (0.6-1.3); GLUCOSE 266 mg/dL (74-106); MAGNESIUM - SERUM 1.7 mg/dL (1.8-2.4); PHOSPHOROUS 2.9 mg/dL (2.5-4.9); POTASSIUM - SERUM 3.7 mmol/L (3.5-5.1); PROTEIN - SERUM 6.4 g/dL (6.4-8.2); SODIUM 138 mmol/L (136-145); UREA NITROGEN 7 mg/dL (7-18); eGFR NON AFRICAN AMERICAN > 90 mL/min (90-120)
--- NOTE | 2017-04-05 08:33 | NUR ---
PT RESTING QUIETLY, VSS.
--- NOTE | 2017-04-05 12:58 | NUR ---
RECEIVED PT VIA WHEELCHAIR FROM ICU STAFF. PT IS ALERT AND ORIENTED. UP AD TALISHA. ON ROOM AIR. IV SEEN TO LEFT WRIST. MOTHER IS AT BEDSIDE. NO NEED AT THIS CURRENT TIME. WILL CONTINUE TO MONITOR AND CONTINUE WITH PLAN OF CARE.
[2017-04-05 13:36] LABS: CALC OSMOLALITY 283 mosm/kg (275-300); CALCIUM 8.6 mg/dL (8.5-10.1); CARBON DIOXIDE 24.4 mmol/L (21.0-32.0); CHLORIDE - SERUM 99 mmol/L (98-107); CREATININE - SERUM 0.9 mg/dL (0.6-1.3); MAGNESIUM - SERUM 1.6 mg/dL (1.8-2.4); POTASSIUM - SERUM 3.9 mmol/L (3.5-5.1); SODIUM 135 mmol/L (136-145); UREA NITROGEN 8 mg/dL (7-18); eGFR NON AFRICAN AMERICAN > 90 mL/min (90-120)
[2017-04-05 13:37] LABS: GLUCOSE 388 mg/dL (74-106)
--- NOTE | 2017-04-05 14:52 | NUR ---
* Is the patient Alert and Oriented? Yes 0 * How many steps to enter\\exit or inside your home? 3 0 * PCP Dr. Park - [facility] * Pharmacy [facility] * Preadmission Environment Home Alone 0 * ADLs Independent 0 * List name and contact numbers for known caregivers / representatives who currently or will assist patient after discharge: Mother - Yin Mota [phone] 0 * Has this patient been hospitalized within the prior 30 days at any hospital? No Patient Name: JOSE MOTA Admission Status: ER Accout number: [id number] Admission Date: 04-04-2017 : 1965 Admission Diagnosis: Attending: GILLIAN TAY Current LOS: 1 Primary Insurance: [employer] MEDICARE ADV Discharge Planning Comments: CM met with patient to assess dc plans/needs. Patient states he lives in a [place]. He states he moved from [place] in February so that he could help take care of his mother. He states he initially lived with her, but they couldn't afford the rent, so she moved in with one of his siblings. He states the camper does not have a working stove to cook on or a TV or Radio. He states it has all other working utilities. He states he hasn't been eating "Like I should" do to not having a stove and no money. He states he receives disability benefits of about $1000/month. He states he spend about $450/month for his RV site and the rest on his van for transportation. He does have a working cell phone. He states he has all of his medications which is provided by the [facility]. He is interested in going to a homeless jail when he discharges from the hospital. CM will follow & assist as needed. Transportation Consultant: Shira Daigle
--- NOTE | 2017-04-05 17:29 | NUR ---
ON MONITOR SHOWING SR, HR 68.
--- NOTE | 2017-04-05 18:22 | NUR ---
PT IS CURRENTLY LAYING IN BED ON BACK WITH EYES OPEN RESTING. MOM IS AT BEDSIDE. NO NEED AT THIS CURRENT TIME. WILL CONTINUE TO MONITOR.
[2017-04-06 00:27] VITALS: BP 142/83
--- NOTE | 2017-04-06 01:43 | NUR ---
PT SITTING UP AT BEDSIDE, DENIES PAIN OR NEEDS AT THIS TIME. RESPIRATIONS EVEN AND UNLABORED. CALL LIGHT IN REACH, WILL CONTIUE PLAN OF CARE.
[2017-04-06 04:50] VITALS: BP 145/76
--- NOTE | 2017-04-06 04:56 | NUR ---
TAG MARKER AT BEDSIDE, CALL LIGHT IN REACH. WILL CONTINUE WITH PLAN OF CARE.
[2017-04-06 06:34] LABS: BASOPHILS 0.4 % (0-2); EOSINOPHILS 3.4 % (0-7); HEMATOCRIT 42.6 % (42.0-54.0); IMMATURE GRANULOCYTES 0.2 % (0-5); LYMPHOCYTES 20.3 % (15-50); MCH 26.5 pg (26.0-34.0); MCHC 32.9 g/dL (31.0-37.0); MCV 80.5 fL (80.0-100.0); MONOCYTES 9.5 % (2-11); NEUTROPHILS 66.2 % (40-80); PLATELET COUNT 126 10x3/uL (130-400); RBC 5.29 10x6/uL (4.20-6.10); RDW 14.3 % (11.5-14.5); WBC 5.6 10x3/uL (4.8-10.8)
[2017-04-06 07:17] LABS: ALBUMIN 2.8 g/dL (3.4-5.0); ALKALINE PHOSPHATASE 83 U/L (46-116); ALT (SGPT) 18 U/L (10-68); BILIRUBIN - TOTAL 0.33 mg/dL (0.2-1.3); CALCIUM 8.5 mg/dL (8.5-10.1); CARBON DIOXIDE 25.1 mmol/L (21.0-32.0); CHLORIDE - SERUM 101 mmol/L (98-107); CREATININE - SERUM 0.7 mg/dL (0.6-1.3); PROTEIN - SERUM 6.3 g/dL (6.4-8.2); SODIUM 137 mmol/L (136-145); UREA NITROGEN 8 mg/dL (7-18); eGFR NON AFRICAN AMERICAN > 90 mL/min (90-120)
[2017-04-06 07:26] LABS: CALC OSMOLALITY 280 mosm/kg (275-300); GLUCOSE 261 mg/dL (74-106); POTASSIUM - SERUM 3.3 mmol/L (3.5-5.1)
--- NOTE | 2017-04-06 07:39 | NUR ---
AM ROUNDING- RECEIVED REPORT FROM LAUNDRY AIDE NURSE JUVE. PT IS CURRENTLY LAYING IN BED ON BACK WITH EYES CLOSED RESTING. ON ROOM AIR. ON MONITOR SHOWING SR, 68. IV SEEN TO LEFT WRIST WITH 1/2NS RUNNING AT 100CC. NO NEED AT THIS CURRENT TIME. WILL CONTINUE TO MONITOR AND CONTIUE WITH PLAN OF CARE.
[2017-04-06 08:16] VITALS: BP 165/95
[2017-04-06 14:12] VITALS: BP 157/94
--- NOTE | 2017-04-06 15:44 | NUR ---
D/C INSTRUCTIONS EXPLAINED TO PT. D/C PAPERWORK SIGNED BY PT AND PLACED IN CHART. IV TO LEFT WRIST REMOVED WITH CATH TIP INTACT. COVERED SITE WITH 2X2 GAUZE PADS AND SECURED WITH TAPE. PT D/C VIA WHEELCHAIR WITH VOLUNTEER.
--- NOTE | 2017-04-06 17:21 | NUR ---
Patient Name: JOSE MOTA Encounter No: [id number] : 1965 Primary Insurance: WE[employer] MEDICARE ADV Anticipated DC Date: 04-06-2017 Planned Disposition: Home LATE ENTRY: DCP follow-up note: CM MET WITH PT AND HIS MOTHER IN ROOM TO DISCUSS DISCHARGE NEEDS AND PLANNING. CM DISCUSSED AVAILABILITY OF HOME HEALTH, REHAB SERVICES AND MEDICAL EQUIPMENT. PT DENIES DISCHARGE NEEDS OTHER THAN WANTING SOMEWHERE ELSE TO LIVE. PT WILL DRIVE HIMSELF HOME AT DISCHARGE. IMPORTANT MESSAGE FROM MEDICARE PROVIDED AND EXPLAINED. PT'S MOTHER REPORTS SHE IS LIVING WITH HER OTHER SON IN [place], PT CANNOT LIVE THERE. PT DENIES HAVING OTHER FRIENDS OR FAMILY HERE TO HELP AND WILL RETURN TO HIS [facility]; PT HAS ELECTRICITY AND RUNNING WATER IN HIS TRAILOR. PT HAS SPACE HEATER. CM PROVIDED PT WITH [facility] CONTACT INFORMATION AND INFORMATION REGARDING [facility]. PT DENIES FURTHER NEEDS, REPORTS HE MAY HAVE TO MOVE TO [place] WITH ONE OF HIS CHILDREN IN THE FUTURE. ASTRID WOODS, CASE MANAGEMENT
== END 2017-04-06 15:51 | disposition home or self-care (01) | DRG 638 ==
LOC: D.ER 10:54 → D.ICU 14:54 → D.M2 14:54
PROVIDERS: Physician Assistant Medical; ADMIT Emergency Medicine
DX: E11.10 Type 2 diabetes mellitus with ketoacidosis without coma (principal); E87.1 Hypo-osmolality and hyponatremia; Z79.4 Long term (current) use of insulin; E11.65 Type 2 diabetes mellitus with hyperglycemia; E11.40 Type 2 diabetes mellitus with diabetic neuropathy, unspecified; Z86.73 Personal history of transient ischemic attack (TIA), and cerebral infarction without residual deficits; F41.8 Other specified anxiety disorders; I11.0 Hypertensive heart disease with heart failure; I50.9 Heart failure, unspecified; E66.9 Obesity, unspecified; E78.5 Hyperlipidemia, unspecified; G47.33 Obstructive sleep apnea (adult) (pediatric); E86.0 Dehydration; Z68.32 Body mass index [BMI] 32.0-32.9, adult

== ENCOUNTER 2017-05-06 13:19 | Emergency (ER) | payer MEDICARE ==
[2017-04-05 10:23] VITALS: BMI 32.3
[~2017-05-06 13:19] MED LIST changes: +OMEPRAZOLE40 MG PO
[2017-05-06 15:23] LABS: ALBUMIN 2.8 g/dL (3.4-5.0); ANION GAP 14.1 mmol/L (8-16); BASOPHILS 0.2 % (0-2); BILIRUBIN - TOTAL 0.27 mg/dL (0.2-1.3); CALCIUM 8.6 mg/dL (8.5-10.1); CARBON DIOXIDE 25.9 mmol/L (21.0-32.0); CREATININE - SERUM 1.2 mg/dL (0.6-1.3); EOSINOPHILS 1.3 % (0-7); HEMATOCRIT 44.6 % (42.0-54.0); HEMOGLOBIN 14.6 g/dL (13.5-17.5); IMMATURE GRANULOCYTES 0.5 % (0-5); LYMPHOCYTES 15.7 % (15-50); MCH 26.7 pg (26.0-34.0); MCHC 32.7 g/dL (31.0-37.0); MCV 81.5 fL (80.0-100.0); MEAN PLATELET VOLUME 12.1 fL (7.4-10.4); MONOCYTES 7.8 % (2-11); NEUTROPHILS 74.5 % (40-80); PROTEIN - SERUM 6.9 g/dL (6.4-8.2); RBC 5.47 10x6/uL (4.20-6.10); RDW 13.4 % (11.5-14.5); WBC 6.2 10x3/uL (4.8-10.8)
[2017-05-06 15:25] LABS: PLATELET COUNT 231 10x3/uL (130-400)
[2017-05-06 15:38] LABS: APPEARANCE CLEAR (CLEAR); BILIRUBIN NEGATIVE (NEGATIVE); COLOR YELLOW (YELLOW); GLUCOSE 1000 mg/dL (NEGATIVE); KETONE NEGATIVE (NEGATIVE); NITRITE NEGATIVE (NEGATIVE); PROTEIN 1+ mg/dL (NEGATIVE); SPECIFIC GRAVITY 1.015 (1.005-1.020); UROBILINOGEN NORMAL (NORMAL)
[2017-05-06 15:39] LABS: EPITHELIAL CELLS 0-5 /hpf (0-5); RED CELLS - URINE 0-5 /hpf (0-5); WHITE CELLS - URINE 0-5 /hpf (0-5)
[2017-05-06 15:40] LABS: BACTERIA NONE SEEN /hpf (NONE SEEN)
[2017-05-06 15:55] LABS: INR 0.97 (0.85-1.17); PROTIME 12.3 SECONDS (11.6-15.0)
[2017-05-06 16:07] LABS: MAGNESIUM - SERUM 1.8 mg/dL (1.8-2.4); TROPONIN-I 0.028 ng/mL (0.000-0.060)
== END 2017-05-06 23:02 | disposition home or self-care (01) ==
LOC: D.ER 13:19
PROVIDERS: Family Medicine; Nurse Practitioner Family
DX: E11.65 Type 2 diabetes mellitus with hyperglycemia (principal); Z91.14 Patient's other noncompliance with medication regimen; I10 Essential (primary) hypertension

== ENCOUNTER 2017-05-28 12:38 | Emergency (ER) | payer MEDICARE ==
[2017-04-05 10:23] VITALS: BMI 32.3
[2017-05-28 13:15] LABS: BASOPHILS 0.2 % (0-2); EOSINOPHILS 1.8 % (0-7); HEMATOCRIT 43.9 % (42.0-54.0); HEMOGLOBIN 14.5 g/dL (13.5-17.5); IMMATURE GRANULOCYTES 0.2 % (0-5); LYMPHOCYTES 17.1 % (15-50); MCH 27.1 pg (26.0-34.0); MCV 81.9 fL (80.0-100.0); MEAN PLATELET VOLUME 12.9 fL (7.4-10.4); MONOCYTES 7.9 % (2-11); NEUTROPHILS 72.8 % (40-80); RBC 5.36 10x6/uL (4.20-6.10); RDW 13.3 % (11.5-14.5); WBC 4.6 10x3/uL (4.8-10.8)
[2017-05-28 13:21] LABS: PLATELET COUNT 137 10x3/uL (130-400)
[2017-05-28 13:31] LABS: ALBUMIN 2.8 g/dL (3.4-5.0); ALKALINE PHOSPHATASE 80 U/L (46-116); ALT (SGPT) 37 U/L (10-68); BILIRUBIN - TOTAL 0.47 mg/dL (0.2-1.3); CALC OSMOLALITY 278 mosm/kg (275-300); CALCIUM 8.1 mg/dL (8.5-10.1); CARBON DIOXIDE 28.7 mmol/L (21.0-32.0); CHLORIDE - SERUM 97 mmol/L (98-107); POTASSIUM - SERUM 3.7 mmol/L (3.5-5.1); PROTEIN - SERUM 6.4 g/dL (6.4-8.2); SODIUM 133 mmol/L (136-145); UREA NITROGEN 12 mg/dL (7-18); eGFR NON AFRICAN AMERICAN 83 mL/min (90-120)
[2017-05-28 13:39] LABS: GLUCOSE 325 mg/dL (74-106)
[2017-05-28 14:01] LABS: UDS - AMPHET NEGATIVE QUAL (NEGATIVE); UDS - BARB NEGATIVE QUAL (NEGATIVE); UDS - BENZO POSITIVE QUAL (NEGATIVE); UDS - COCAINE NEGATIVE QUAL (NEGATIVE); UDS - OPIATE NEGATIVE QUAL (NEGATIVE); UDS - PCP NEGATIVE QUAL (NEGATIVE); UDS - THC NEGATIVE QUAL (NEGATIVE)
[2017-05-28 14:31] LABS: APPEARANCE CLOUDY (CLEAR); BILIRUBIN NEGATIVE (NEGATIVE); COLOR YELL (YELLOW); GLUCOSE NEGATIVE (NEGATIVE); KETONE NEGATIVE (NEGATIVE); NITRITE POSITIVE (NEGATIVE); PROTEIN 2+ mg/dL (NEGATIVE); UROBILINOGEN NORMAL (NORMAL)
[2017-05-28 14:32] LABS: BACTERIA MODERATE /hpf (NONE SEEN); EPITHELIAL CELLS 0-5 /hpf (0-5); HYALINE CAST 0-5 /lpf (NONE SEEN); MUCUS >1+ /lpf (NONE SEEN); RED CELLS - URINE 0-5 /hpf (0-5); WHITE CELLS - URINE 0-5 /hpf (0-5)
== END 2017-05-29 00:20 | disposition home or self-care (01) ==
LOC: D.ER 12:38
PROVIDERS: Family Medicine
DX: R45.851 Suicidal ideations (principal); F32.9 Major depressive disorder, single episode, unspecified; E11.9 Type 2 diabetes mellitus without complications

== ENCOUNTER 2017-11-20 12:16 | Emergency (ER) | payer MEDICARE ==
[~2017-11-20] VITALS: Ht 182.9 cm; Wt 100.0 kg
[2017-11-20 12:32] VITALS: Ht 182.9 cm; Wt 100.0 kg
[2017-11-20 14:39] LABS: BASOPHILS 0.2 % (0-2); HEMATOCRIT 39.4 % (42.0-54.0); HEMOGLOBIN 12.9 g/dL (13.5-17.5); IMMATURE GRANULOCYTES 0.2 % (0-5); LYMPHOCYTES 16.1 % (15-50); MCH 26.9 pg (26.0-34.0); MCHC 32.7 g/dL (31.0-37.0); MCV 82.3 fL (80.0-100.0); MEAN PLATELET VOLUME 12.4 fL (7.4-10.4); MONOCYTES 14.6 % (2-11); NEUTROPHILS 65.9 % (40-80); PLATELET COUNT 136 10x3/uL (130-400); RBC 4.79 10x6/uL (4.20-6.10); RDW 13.3 % (11.5-14.5); WBC 4.7 10x3/uL (4.8-10.8)
[2017-11-20 14:43] LABS: APTT 22.9 SECONDS (22.8-39.4); INR 0.86 (0.85-1.17); PROTIME 11.4 SECONDS (11.6-15.0)
[2017-11-20 14:44] LABS: D-DIMER-QUANTITATIVE 1.24 ug/mLFEU (0.20-0.54)
[2017-11-20 14:48] LABS: ALKALINE PHOSPHATASE 103 U/L (46-116); ALT (SGPT) 18 U/L (10-68); BILIRUBIN - TOTAL 0.26 mg/dL (0.2-1.3); CALCIUM 8.9 mg/dL (8.5-10.1); CARBON DIOXIDE 30.1 mmol/L (21.0-32.0); CHLORIDE - SERUM 98 mmol/L (98-107); CKMB 1.3 U/L (0.0-3.6); CREATINE KINASE 44 UL (21-232); CREATININE - SERUM 1.1 mg/dL (0.6-1.3); MAGNESIUM - SERUM 1.8 mg/dL (1.8-2.4); POTASSIUM - SERUM 3.6 mmol/L (3.5-5.1); PROTEIN - SERUM 7.1 g/dL (6.4-8.2); SODIUM 135 mmol/L (136-145); THYROID STIMULATING HORMONE 0.25 uIU/mL (0.36-3.74); UREA NITROGEN 16 mg/dL (7-18); eGFR NON AFRICAN AMERICAN 74 mL/min (90-120)
[2017-11-20 15:03] LABS: CALC OSMOLALITY 288 mosm/kg (275-300); TROPONIN-I < 0.017 ng/mL (0.000-0.060)
[2017-11-20 15:14] LABS: GLUCOSE 425 mg/dL (74-106)
[2017-11-20 19:51] VITALS: BP 164/86
== END 2017-11-20 19:52 | disposition home or self-care (01) ==
LOC: D.ER 12:16
PROVIDERS: Family Medicine
DX: E11.65 Type 2 diabetes mellitus with hyperglycemia (principal); R42 Dizziness and giddiness; Z86.73 Personal history of transient ischemic attack (TIA), and cerebral infarction without residual deficits

== ENCOUNTER 2017-12-02 18:55 | Emergency (ER) | payer OTHER ==
[~2017-12-02] VITALS: Ht 182.9 cm; Wt 100.0 kg
[2017-12-02 19:15] VITALS: Ht 182.9 cm; Wt 100.0 kg
[2017-12-02 19:55] LABS: BASOPHILS 0.3 % (0-2); EOSINOPHILS 1.3 % (0-7); HEMATOCRIT 43.8 % (42.0-54.0); HEMOGLOBIN 14.6 g/dL (13.5-17.5); IMMATURE GRANULOCYTES 0.1 % (0-5); LYMPHOCYTES 13.1 % (15-50); MCH 26.9 pg (26.0-34.0); MCHC 33.3 g/dL (31.0-37.0); MCV 80.8 fL (80.0-100.0); MEAN PLATELET VOLUME 12.4 fL (7.4-10.4); MONOCYTES 7.2 % (2-11); PLATELET COUNT 159 10x3/uL (130-400); RBC 5.42 10x6/uL (4.20-6.10); RDW 12.9 % (11.5-14.5); WBC 7.5 10x3/uL (4.8-10.8)
[2017-12-02 19:56] LABS: APPEARANCE CLEAR (CLEAR); BILIRUBIN NEGATIVE (NEGATIVE); COLOR YELLOW (YELLOW); GLUCOSE 1000 mg/dL (NEGATIVE); KETONE NEGATIVE (NEGATIVE); NITRITE NEGATIVE (NEGATIVE); PROTEIN 1+ mg/dL (NEGATIVE); UROBILINOGEN NORMAL (NORMAL)
[2017-12-02 19:58] LABS: BACTERIA FEW /hpf (NONE SEEN); EPITHELIAL CELLS 0-5 /hpf (0-5); RED CELLS - URINE 0-5 /hpf (0-5); WHITE CELLS - URINE 0-5 /hpf (0-5)
[2017-12-02 20:15] LABS: UDS - AMPHET NEGATIVE QUAL (NEGATIVE); UDS - BARB NEGATIVE QUAL (NEGATIVE); UDS - BENZO NEGATIVE QUAL (NEGATIVE); UDS - COCAINE NEGATIVE QUAL (NEGATIVE); UDS - OPIATE NEGATIVE QUAL (NEGATIVE); UDS - PCP NEGATIVE QUAL (NEGATIVE); UDS - THC NEGATIVE QUAL (NEGATIVE)
[2017-12-02 20:26] LABS: ALBUMIN 3.1 g/dL (3.4-5.0); BILIRUBIN - TOTAL 0.34 mg/dL (0.2-1.3); CALCIUM 8.7 mg/dL (8.5-10.1); CARBON DIOXIDE 25.2 mmol/L (21.0-32.0); CREATININE - SERUM 1.3 mg/dL (0.6-1.3); POTASSIUM - SERUM 4.2 mmol/L (3.5-5.1); PROTEIN - SERUM 7.2 g/dL (6.4-8.2)
[2017-12-03 03:53] VITALS: BP 145/79
== END 2017-12-03 05:05 ==
LOC: D.ER 18:55
PROVIDERS: Family Medicine
DX: R45.851 Suicidal ideations (principal); E11.8 Type 2 diabetes mellitus with unspecified complications; Z86.73 Personal history of transient ischemic attack (TIA), and cerebral infarction without residual deficits; K21.9 Gastro-esophageal reflux disease without esophagitis

== ENCOUNTER 2018-05-16 20:01 | Emergency (ER) | payer OTHER ==
[~2018-05-16] VITALS: Ht 182.9 cm; Wt 122.7 kg
[2018-05-16 20:08] VITALS: Ht 182.9 cm; Wt 122.7 kg
[2018-05-16] MEDS ORDERED: TORADOL10 MG PO (21:26)
[2018-05-16 21:55] VITALS: BP 158/88
== END 2018-05-16 21:58 | disposition home or self-care (01) ==
LOC: D.ER 20:01
DX: S42.121A Displaced fracture of acromial process, right shoulder, initial encounter for closed fracture (principal); W18.31XA Fall on same level due to stepping on an object, initial encounter; Y93.89 Activity, other specified; Y92.019 Unspecified place in single-family (private) house as the place of occurrence of the external cause

== ENCOUNTER 2018-05-30 17:45 | Emergency (ER) | payer OTHER ==
[~2018-05-30] VITALS: Ht 182.9 cm; Wt 122.7 kg
[~2018-05-30 17:45] MED LIST changes: +TORADOL10 MG PO
[2018-05-30 17:48] VITALS: Ht 182.9 cm; Wt 122.7 kg
[2018-05-30] MEDS ORDERED: ACETAMINOPHEN325 MG PO (17:59)
[2018-05-30] MEDS ORDERED: LIPITOR80 MG PO (18:00)
[2018-05-30] MEDS ORDERED: ASPIRIN81 MG PO (18:00)
[2018-05-30] MEDS ORDERED: PLAVIX75 MG PO (18:01)
[2018-05-30] MEDS ORDERED: BUSPAR10 MG PO (18:01)
[2018-05-30] MEDS ORDERED: VOLTAREN100 GM TOPICAL (18:02)
[2018-05-30] MEDS ORDERED: VITAMIN D250000 UNIT PO (18:03)
[2018-05-30] MEDS ORDERED: LEXAPRO20 MG PO (18:03)
[2018-05-30] MEDS ORDERED: NEURONTIN 400400 MG PO (18:04)
[2018-05-30] MEDS ORDERED: FLUTICASONE PRO16 GM NASAL (18:04)
[2018-05-30] MEDS ORDERED: HYDROXYZINE HCL50 MG PO (18:05)
[2018-05-30] MEDS ORDERED: LANTUS INSULIN10 ML SC (18:06)
[2018-05-30] MEDS ORDERED: Novolin R SQ (18:11)
[2018-05-30] MEDS ORDERED: ACULAR 0.5 % OPH5 ML EACH EYE (18:11)
[2018-05-30] MEDS ORDERED: LIDODERM 5 %1 PATCH TRANSDERM (18:18)
[2018-05-30] MEDS ORDERED: GLUCOPHAGE1000 MG PO (18:19)
[2018-05-30] MEDS ORDERED: LISINOPRIL40 MG PO (18:19)
[2018-05-30] MEDS ORDERED: ROBAXIN500 MG PO (18:20)
[2018-05-30] MEDS ORDERED: PROCARDIA10 MG PO (18:20)
[2018-05-30] MEDS ORDERED: VITAMIN B-625 MG PO (18:21)
[2018-05-30] MEDS ORDERED: PROTONIX FOR OR40 MG PT (18:21)
[2018-05-30] MEDS ORDERED: TRAZODONE HCL150 MG PO (18:22)
[2018-05-30] MEDS ORDERED: SENNA LAXATIVE8.6 MG PO (18:22)
[2018-05-30 19:03] LABS: BASOPHILS 0.6 % (0-2); EOSINOPHILS 3.4 % (0-7); HEMATOCRIT 35.4 % (42.0-54.0); HEMOGLOBIN 11.5 g/dL (13.5-17.5); IMMATURE GRANULOCYTES 0.3 % (0-5); LYMPHOCYTES 32.9 % (15-50); MCH 24.4 pg (26.0-34.0); MCHC 32.5 g/dL (31.0-37.0); MEAN PLATELET VOLUME 11.9 fL (7.4-10.4); MONOCYTES 15.7 % (2-11); NEUTROPHILS 47.1 % (40-80); PLATELET COUNT 141 10x3/uL (130-400); RBC 4.72 10x6/uL (4.20-6.10); RDW 14.9 % (11.5-14.5); WBC 3.3 10x3/uL (4.8-10.8)
[2018-05-30 19:22] LABS: KETONE - SERUM NEGATIVE (NEGATIVE)
[2018-05-30 20:20] LABS: ALBUMIN 2.6 g/dL (3.4-5.0); ALKALINE PHOSPHATASE 89 U/L (46-116); ALT (SGPT) 43 U/L (10-68); BILIRUBIN - TOTAL 0.26 mg/dL (0.2-1.3); CALC OSMOLALITY 280 mosm/kg (275-300); CALCIUM 8.2 mg/dL (8.5-10.1); CARBON DIOXIDE 21.7 mmol/L (21.0-32.0); CHLORIDE - SERUM 99 mmol/L (98-107); MAGNESIUM - SERUM 1.7 mg/dL (1.8-2.4); POTASSIUM - SERUM 4.4 mmol/L (3.5-5.1); PROTEIN - SERUM 6.2 g/dL (6.4-8.2); SODIUM 133 mmol/L (136-145); UREA NITROGEN 16 mg/dL (7-18); eGFR NON AFRICAN AMERICAN 82 mL/min (90-120)
[2018-05-30 20:22] LABS: GLUCOSE 347 mg/dL (74-106)
[2018-05-30 20:27] LABS: APPEARANCE CLEAR (CLEAR); BACTERIA MODERATE /hpf (NONE SEEN); BILIRUBIN NEGATIVE (NEGATIVE); COLOR STRAW (YELLOW); EPITHELIAL CELLS 0-5 /hpf (0-5); GLUCOSE 1000 mg/dL (NEGATIVE); KETONE NEGATIVE (NEGATIVE); NITRITE NEGATIVE (NEGATIVE); PROTEIN 2+ mg/dL (NEGATIVE); RED CELLS - URINE 0-5 /hpf (0-5); SPECIFIC GRAVITY 1.015 (1.005-1.020); UROBILINOGEN NORMAL (NORMAL); WHITE CELLS - URINE 0-5 /hpf (0-5)
[2018-05-30 20:28] LABS: AMORPHOUS SEDIMENT >1+ /lpf (NONE SEEN); MUCUS <1+ /lpf (NONE SEEN); YEAST RARE /hpf (NONE SEEN)
[2018-05-30 21:38] LABS: UDS - AMPHET NEGATIVE QUAL (NEGATIVE); UDS - BARB NEGATIVE QUAL (NEGATIVE); UDS - BENZO NEGATIVE QUAL (NEGATIVE); UDS - COCAINE NEGATIVE QUAL (NEGATIVE); UDS - OPIATE NEGATIVE QUAL (NEGATIVE); UDS - PCP NEGATIVE QUAL (NEGATIVE); UDS - THC NEGATIVE QUAL (NEGATIVE)
[2018-05-31 00:24] VITALS: BP 152/81
== END 2018-05-31 00:25 ==
LOC: D.ER 17:45
PROVIDERS: Family Medicine
DX: R45.851 Suicidal ideations (principal); S20.212A Contusion of left front wall of thorax, initial encounter; W18.30XA Fall on same level, unspecified, initial encounter; Y93.89 Activity, other specified; Y92.019 Unspecified place in single-family (private) house as the place of occurrence of the external cause; F32.9 Major depressive disorder, single episode, unspecified; E11.9 Type 2 diabetes mellitus without complications; I10 Essential (primary) hypertension; Z86.73 Personal history of transient ischemic attack (TIA), and cerebral infarction without residual deficits

== ENCOUNTER 2018-06-30 18:46 | Observation (INO) | payer OTHER, MEDICARE, MEDICAID ==
[~2018-06-30] VITALS: Ht 182.9 cm; Wt 122.7 kg
--- NOTE | ~2018-06-30 | HEMODYNAMI ---
PATIENT:JOSE MOTA MEDICAL RECORD: [id number] : 61 LOC[id number] ADMISSION DATE: 06/30/18 Generatedon:07/02/201812:50 Patient name: JOSE MOTA Patient #: [id number] SSN: : 1965 Date of study: 07/02/2018 Page: Of Hemodynamic Procedure Report Patient Data Patient Demographics Procedure consent was obtained First Name: JOSE Gender: Male Last Name: SVETLANA : 1965 [facility] Initial: ELDA Age: 53 year(s) Patient #: [id number] Race: Additional ID: [id number] Contact details Address: [address] [place] [address] State: [place] City: [place] Zip code: [address] Past Medical History Allergies Allergen Reaction Date Comments Reported Other allergy 10/29/2015 Penicillins Other allergy 02/28/2017 pcn Penicillins 03/01/2017 Other allergy 07/02/2018 PCN Admission Admission Data Admission Date: 06/30/2018 Admission Time: 22:10 Room #: D.2129 Weight (lbs.): 268.97 Weight (kg.): 122 Lab Results Lab Result Date: 07/02/2018 Lab Result Time: 3:43 Biochemistry Name Units Result Min Max BUN mg/dl 10 --(-*--)-- 7 18 Creatinine mg/dl 0.9 --(-*--)-- 0.6 1.3 CBC Name Units Result Min Max Hematocrit % 35.8 *-(----)-- 42 54 Hemoglobin g/dl 11.4 *-(----)-- 13.5 17.5 Procedure Procedure Types Cath Procedure Diagnostic Procedure C [facility] w/Coronaries Sedation Charges Moderate Sedation up to 15 minutes PCI Procedure Coronary Stent Coronary Stent Initial Procedure Description Procedure Date Procedure Date: 07/02/2018 Procedure Start Time: 12:25 Procedure End Time: 12:47 Procedure Staff Name Function Angel Calvillo MD Performing Physician Cecy Bustos RN Nurse Elif Barbosa RT Scrub Pablo Briseno RT Monitor Procedure Data Cath Procedure Fluoroscopy Diagnostic fluoroscopy Total fluoroscopy Time: 3.6 time: 3.6 min min Diagnostic fluoroscopy Total fluoroscopy dose: 840 dose: 840 mGy mGy Contrast Material Contrast Material Type Amount (ml) Isovue 300 76 Entry Location Entry Primary Successful Side Size Upsize Upsize Entry Closure Ponce ccessful Closure Location (Fr) 1 (Fr) 2 (Fr) Remarks Device Remarks Radial Right 6 Fr Mechanical artery Short Compression Femoral Right 5 Fr 6 Fr Exoseal artery Short Estimated blood loss: 10 ml Diagnostic catheters Device Type Used For End Catheter Placement DIAGNOSTIC Lanagan 110cm 5 Procedure Fr catheter ([id number]) MULTIPACK JL 4.0 5Fr Procedure catheter MULTIPACK 3DRC 5Fr Procedure catheter MULTIPACK Pigtail 5 Fr Procedure catheter Procedure Complications No complications Procedure Medications Medication Administration Route Dosage 0.9% NaCl I.V. 100 ml/hr Oxygen etCO2 Nasal cannula 2 l/min Lidocaine 2% added to field 20 Heparin Flush Bag added to field 2 bags (1000units/500ml NS) Radial Cocktail added to field 1 syringe (Verapomil 2mg/Nitro 400mcg/Heparin 1500units) Versed I.V. 2 mg Fentanyl I.V. 50 mcg Versed I.V. 2 mg Fentanyl I.V. 50 mcg Versed I.V. 2 mg Heparin Bolus I.V. 5000 units Fentanyl I.V. 50 mcg Hemodynamics Rest HGB: 11.4 (g/dl) Heart Rate: 86 (bpm) Pressure Samples Time Site Value (mmHg) Purpose Heart Use Rate(bpm) 12:35 LV 114/-1,25 Snapshot 82 Gradients Valve Time Site Site Mean SEP/DFP Peak To Heart Use 1 2 (mmHg) (sec/min) Peak Rate (mmHg) (bpm) Aortic 12:36 LV AO 95 Snapshots Pre Cath Intra NCS Post Cath Vital Signs Time Heart Resp SPO2 etCO2 NIBP (mmHg) Rhythm Pain Sedation Rate (ipm) (%) (mmHg) Status Level (bpm) 12:14:20 86 12 98 32.6 154/88(113) NSR 0 (11) 10(A) , No pain 12:18:55 91 13 97 11.3 132/85(127) NSR 0 (11) 10(A) , No pain 12:23:17 91 16 97 29.5 130/91(122) NSR 0 (11) 10(A) , No pain 12:27:37 93 13 98 20.4 144/95(120) NSR 0 (11) 10(A) , No pain 12:32:07 92 17 96 18.1 117/87(111) NSR 0 (11) 10(A) , No pain 12:37:21 94 14 97 19.8 125/85(124) NSR 0 (11) 10(A) , No pain 12:41:39 93 18 96 12.8 130/95(121) NSR 0 (11) 10(A) , No pain 12:46:01 94 16 95 34.1 125/87(122) NSR 0 (11) 10(A) , No pain Medications Time Medication Route Dose Verified Delivered Reason Not es Effectiveness by by 12:09:10 0.9% NaCl I.V. 100 Angel Cecy used for ml/hr Karli Akash procedure MD [facility] 12:09:16 Oxygen etCO2 2 l/min Angel Cecy used for Nasal Karli Akash procedure cannula MD [facility] 12:09:21 Lidocaine 2% added 20ml Angel Kruseory for local [facility] 12:09:25 Heparin Flush added 2 bags Angel Kruseory used for Bag to [facility] procedure (1000units/500ml field MD [facility] NS) 12:09:32 Radial Cocktail added 1 Angel Ortiz used for ([facility]ap[facility]il to [facility] 2[facility]/Nitro field MD CARDONA 400mcg/Heparin 1500units) 12:16:00 Fentanyl I.V. 50 mcg Angel Cecy for sedation [facility] Andrew Bustos MD, RN 12:16:50 Versed I.V. 2 mg Angel Cecy for sedation [facility] Andrew Bustos MD, RN 12:21:22 Fentanyl I.V. 50 mcg Angel Cecy for sedation [facility] Andrew Bustos MD, RN 12:21:46 Versed I.V. 2 mg Angel Cecy for sedation [facility] Andrew Bustos MD, RN 12:26:30 Versed I.V. 2 mg Angel Cecy for sedation [facility] Andrew Bustos MD, RN 12:26:46 Fentanyl I.V. 50 mcg Angel Cecy for sedation Karli Akash MD RN 12:37:52 Heparin Bolus I.V. 5000 Angel Sam for guillermo ified units [facility] Andrew Bustos anticoagulation with Dr. MD DULCE Hannon Procedure Log Time Note 11:45:30 Informed consent obtained and on chart 11:45:35 Diagnostic Cath Status : Elective 11:46:17 Elif Barbosa RT(R) sent for patient. Start room use. 11:46:18 Time tracking: Regular hours (M-F 7:00 - 5:00) 11:46:23 Plan of Care:Hemodynamics will remain stable., Cardiac rhythm will remain stable., Comfort level will be maintained., Respiratory function will remain adequate., Patient/ family verbilizes understanding of procedure., Procedure tolerated without complication., Recovers from procedure without complications.. 12:01:38 Patient received from Med II to CCL 1 Alert and oriented. Tansferred to table in Supine position. 12:01:39 Warm blankets applied, and alex hugger turned on for patient comfort. 12:01:40 Correct patient and procedure confirmed by team. 12:01:40 ECG and BP/O2 sat monitors applied to patient. 12:02:03 H&P Date Dictated: 06/30/2018 Within 30 days and on chart.. 12:09:01 Vital chart was started 12:09:10 0.9% NaCl 100 ml/hr I.V. was administered by Ceyc Bustos RN; used for procedure; 12:09:16 Oxygen 2 l/min etCO2 Nasal cannula was administered by Cecy Bustos RN; used for procedure; 12:09:21 Lidocaine 2% 20ml vial added to field was administered by Angel Calvillo MD; for local anesthetic; 12:09:25 Heparin Flush Bag (1000units/500ml NS) 2 bags added to field was administered by Angel Calvillo MD; used for procedure; 12:09:32 Radial Cocktail (Verapomil 2mg/Nitro 400mcg/Heparin 1500units) 1 syringe added to field was administered by Angel Calvillo MD; used for procedure; 12:15:21 Baseline sample Acquired. 12:15:24 Rhythm: sinus rhythm 12:15:26 Full Disclosure recording started 12:15:27 Pre-procedure instructions explained to patient. 12:15:27 Pre-op teaching completed and patient verbalized understanding. 12:15:29 Family in waiting room. 12:15:31 Patient NPO since Breakfast. 12:15:40 Patient allergic to Other allergyPCN 12:15:41 Is the patient allergic to Iodine/contrast media? No. 12:15:49 Is patient on blood thinner?Yes 12:15:51 ACC The patient was administered the following blood thiners within the last 24 hours: ACCPlavix 12:15:52 Patient diabetic? Yes. 12:15:53 If diabetic: On Metformin? Yes 12:15:54 If on Metformin: Last Dose? 07/02/2018 12:15:57 Previous problem with sedation/anesthesia? No ? 12:15:57 Snore? Yes 12:15:58 Sleep apnea? Yes 12:16:00 Fentanyl 50 mcg I.V. was administered by Cecy Bustos RN; for sedation; 12:16:02 Deviated septum? No 12:16:03 Opens mouth fully? Yes 12:16:04 Sticks out tongue? Yes 12:16:06 Airway obstruction? No ? 12:16:09 Dentures? No ? 12:16:11 Pre procedure: right dorsailis pedis pulse Doppler 12:16:13 Modified Mika's test Ulnar < 7 seconds 12:16:15 Patient pain scale 0/10 ?. 12:16:19 IV patent on arrival in right forearm with 0.9% NaCl at [facility]. 12:16:50 Versed 2 mg I.V. was administered by Cecy Bustos RN; for sedation; 12:16:57 Lab Result : Creatinine 0.9 mg/dl 12:16:57 Lab Result : BUN 10 mg/dl 12:16:57 Lab Result : Hemoglobin 11.4 g/dl 12:16:57 Lab Result : Hematocrit 35.8 % 12:16:59 Lab results completed and on chart. 12:17:06 Use device set Radial Dx or PCI 12:17:06 ACIST Syringe (80960) opened to sterile field. 12:17:07 Medline Cath Pack ([id number]) opened to sterile field. 12:17:07 Bag Decanter (2002S) opened to sterile field. 12:17:08 ACIST Hand Control (98763) opened to sterile field. 12:17:08 ACIST Manifold (66844) opened to sterile field. 12:17:09 Tegaderm 4 x 4 (1626W) opened to sterile field. 12:17:10 MBrace Wrist Support ([id number]) opened to sterile field. 12:17:11 SHEATH 6FR Slender (27-1199) opened to sterile field. 12:17:12 DIAGNOSTIC WIRE .035 260cm J wire (590220) opened to sterile field. 12:: Physician arrived 12: --------ALL STOP TIME OUT------ :: Final Timeout: patient, procedure, and site verified with staff and physician. All members of the team are in agreement. 12:17:23 Right Radial & Right Groin site verified by team. 12:17: Maximum allowable Isovue 300 dose 300ml. Physician notified. (300ml for normal creatinines. For patients with creatinine of 1.7 or higher multiply weight(kg) x 5 divided by creatinine.) 12:17:30 Fire Safety Assessment: A--An alcohol-based skin anteseptic being used preoperatively., C--Open oxygen or nitrous oxide is being used., D--An ESU, laser, or fiber-optic light is being used. 12:17:34 Physical assessment completed. ASA score P 2 - A patient with mild systemic disease as per Angel Calvillo MD. 12:17:36 Sedation plan: IV Moderate Sedation Medication:Versed, Fentanyl 12:18:40 Patient Weight : 268.97 lbs 12:18:49 Zero performed for pressure channel P1 12::22 Fentanyl 50 mcg I.V. was administered by Cecy Bustos RN; for sedation; 12::46 Versed 2 mg I.V. was administered by Cecy Bustos RN; for sedation; 12:25:03 Procedure started. 12:25:06 Local anesthetic to right radial artery with Lidocaine 2% by Angel Calvillo MD.INITIAL ACCESS ONLY 12:25:14 A 6 Fr Short sheath was inserted into the Right Radial artery 12:25:47 A DIAGNOSTIC Lanagan 110cm 5 Fr catheter (136065) was advanced over the wire and used for Procedure. 12:26:30 Versed 2 mg I.V. was administered by Cecy Bustos RN; for sedation; 12::46 Fentanyl 50 mcg I.V. was administered by Cecy Bustos RN; for sedation; 12:29:17 unable to advance wire through radial artery. moving to femoral approach. 12:29:21 Catheter removed. 12:29:26 Local anesthetic to right femoral artery with Lidocaine 2% by Angel Calvillo MD.ADDITIONAL ACCESS 12:29:33 Use device set Multipack Set 12:29:42 SHEATH 5FR Blanco (DAY468) opened to sterile field. 12:29:43 DIAGNOSTIC Multipack 5Fr catheter set ([id number]) opened to sterile field. 12:31:37 A 5 Fr sheath was inserted into the Right Femoral artery 12:31:40 A MULTIPACK JL 4.0 5Fr catheter was advanced over the wire and used for Procedure. 12:32:15 LCA angiography performed. 12:33:20 Catheter exchanged over wire. 12:33:25 A MULTIPACK 3DRC 5Fr catheter was advanced over the wire and used for Procedure. 12:34:02 RCA angiography performed. 12:35:07 Catheter exchanged over wire. 12:35:11 A MULTIPACK Pigtail 5 Fr catheter was advanced over the wire and used for Procedure. 12:35:58 LV gram done using CENTENO 12:36:00 Injector settings: Ml/sec: 10, Volume: 20, 12:36:12 EF : 55 % 12:36:13 LV hemodynamics recorded. 12:36:16 Catheter removed. 12:36:21 SHEATH 6FR Blanco (FFY776) opened to sterile field. 12:36:26 INFLATOR Merit BasixCompak (VY3159) opened to sterile field. 12:36:32 WHISPER 300cm guide wire ([id number]) opened to sterile field. 12:37:04 GUIDE 6FR XBLAD 3.5 catheter ([id number]) opened to sterile field. 12:37:41 Sheath upsized to a 6 Fr Short. 12:37:52 Heparin Bolus 5000 units I.V. was administered by Cecy Bustos RN; for anticoagulation; verified with Dr. Hannon 12:37:52 6 Fr xblad 3.5 guide catheter was inserted over the wire 12:40:16 whisper wire advanced. 12:40:18 Wire advanced across lesion. 12:42:50 Place stent Inflation Number: 1 A ESTEFANIA OTW 3.5 x 38 stent ([id number]) was prepped and advanced across the Prox LAD. The stent was deployed at 14 ROXY for 0:30 (min:sec). 12:43:25 Stent catheter was removed intact over wire. 12:43:26 Wire removed. 12:43:29 Guide catheter removed. 12:43:35 EXOSEAL 6Fr (EX600) opened to sterile field. 12:43:58 Sheath removed intact; hemostasis achieved with Exoseal to the Right Femoral artery. 12:44:24 TR BAND Large ([id number]) opened to sterile field. 12:44:42 Sheath removed intact; hemostasis achieved with Mechanical Compression to the Right Radial artery. 12:44:43 Procedure ended.(Physican Out) 12:45:46 Contrast amount:Isovue 300 76ml. 12:45:52 Fluoroscopy time 03.60 minutes. 12:45:56 Flurop Dose total: 840 12:45:56 Fluoroscopy dose: 840 mGy 12:46:09 Sharps counted by scrub and verified by R.N. 12:46:11 TR band inflated with 12cc of air. 12:46:12 Insertion/operative site no bleeding no hematoma. 12:46:14 Post-op/insertion site Right Femoral artery dressed using a 4 x 4 and Tegaderm. 12:46:18 Post right femoral artery:stable, soft, clean and dry 12:46:19 Post Procedure Pulses reassessed and unchanged 12:46:22 Post-procedure physical assessment completed. ASA score P 2 - A patient with mild systemic disease as per Angel Calvillo MD. 12:46:24 Post procedure rhythm: unchanged. 12:46:29 Estimated blood loss: 10 ml 12:46:31 Post procedure instruction explained to patient.Patient verbalizes understanding. 12:46:31 Patient needs reinforcement of post procedure teaching. 12:46:41 Procedure type changed to Cath procedure, Diagnostic procedure, LHC, LHC w/Coronaries, Sedation Charges, Moderate Sedation up to 15 minutes, PCI procedure, Coronary Stent, Coronary Stent Initial 12:47:24 Procedure and supply charges have been captured, reviewed, submitted and are correct. 12:47:26 Procedure Complication : No complications 12:47:28 Vital chart was stopped 12:47:28 See physician's report for complete and final results. 12:47:29 Report given to PCU. 12:47:33 Patient transfered to PCU with Stretcher. 12:47:34 Procedure ended. 12:47:34 Full Disclosure recording stopped 12:47:39 End room use (Document Last) Intervention Summary Intervention Notes Time ActionType Lesion and Equipment Action# Pressure Duration Attributes Used 12:42:50 Place stent Prox LAD ESTEFANIA OTW 3.5 1 14 00:30 x 38 stent ([id number]) Device Usage Item Name Manufacture Quantity Catalog Hospital Part Current Mini mal Lot# / Number Charge Number Stock Stock Serial# Code ACIST Syringe Acist 1 52940 190646 840520 912675 20 (41443) Medical Systems Inc Medline Cath Medline 1 [id number] 030822 55836 913827 5 Pack ([id number]) Bag Decanter Microtek 1 2001S 271329 57200 734483 5 (2001S) Medical Inc. ACIST Hand Acist 1 00858 697889 529055 937817 5 Control Medical (62646) Systems Inc ACIST Acist 1 46795 611440 285523 534540 5 Manifold Medical (74333) Systems Inc Tegaderm 4 x 3M 1 1626W 236189 077980 173277 5 4 (1626W) MBrace Wrist Advanced 1 140-0250-00 975508 29757 053349 5 Support Vascular ([id number]) Dynamics SHEATH 6FR Terumo 1 [id number] 720944 790297 672152 5 Slender (80-1060) DIAGNOSTIC St Amuricio 1 647007 610671 551570 626292 30 WIRE .035 260cm J wire (408910) DIAGNOSTIC Terumo 1 40-5013 522214 281302 959823 5 Lanagan 110cm 5 Fr catheter (624572) SHEATH 5FR Terumo 1 IAG525 477060 973989 242036 5 Blanco (YWE747) DIAGNOSTIC Cardinal 1 MX2581 186030 91880 646849 30 Multipack 5Fr Health catheter set (DQ5685) MULTIPACK JL Cardinal 1 851134 5 4.0 5Fr Health catheter MULTIPACK Cardinal 1 004973 5 3DRC 5Fr Health catheter MULTIPACK Cardinal 1 650090 5 Pigtail 5 Fr Health catheter SHEATH 6FR Terumo 1 KPN610 848963 806571 327117 40 Blanco (UFY606) INFLATOR Merit 1 AS4183 727467 846831 727091 15 [facility] Medical BasixCompak (SI0412) WHISPER 300cm Herrera 1 [id number] 589205 001085 788104 5 guide wire Vascular ([id number]) GUIDE 6FR Cardinal 1 54516707 230977 761786 285676 10 XBLAD 3.5 Health catheter (55280672) ESTEFANIA OTW 3.5 Medtronic 1 [id number] 095458 6272393 728265 5 [id number] x 38 stent ([id number]) EXOSEAL 6Fr Cardinal 1 EX600 438956 007188 672603 10 (EX600) Health TR BAND Large Terumo 1 [id number] 529006 331217 680623 40 ([id number]) Signature Audit [place] Stage Time Signature Unsigned Intra-Procedure 07/02/2018 Pablo Briseno 12:50:25 PM RT(R) Signatures Monitor : Pablo Briseno RT Signature : Date : Time : [id number] [place] [address]
[~2018-06-30 18:46] MED LIST changes: +ACETAMINOPHEN325 MG PO; +ACULAR 0.5 % OPH5 ML EACH EYE; +BUSPAR10 MG PO; +FLUTICASONE PRO16 GM NASAL; +HYDROXYZINE HCL50 MG PO; +LEXAPRO20 MG PO; +LIDODERM 5 %1 PATCH TRANSDERM; +LISINOPRIL40 MG PO; +NEURONTIN 400400 MG PO; +Novolin R SQ; +PROCARDIA10 MG PO; +PROTONIX FOR OR40 MG PT; +ROBAXIN500 MG PO; +SENNA LAXATIVE8.6 MG PO; +TRAZODONE HCL150 MG PO; +VITAMIN B-625 MG PO; +VITAMIN D250000 UNIT PO; +VOLTAREN100 GM TOPICAL
--- NOTE | 2018-06-30 19:08 | NUR ---
FSBS - 567. ERP INFORMED.
[2018-06-30 19:30] VITALS: BP 128/72
[2018-06-30 19:55] LABS: KETONE - SERUM NEGATIVE (NEGATIVE)
--- NOTE | 2018-06-30 20:10 | NUR ---
LAB CALLED WITH LACTIC ACID 4.2 DR RAMÍREZ NOTIFIED AND CRITICAL LAB FORM COMPLETED
[2018-06-30 20:16] LABS: ALKALINE PHOSPHATASE 77 U/L (46-116); ALT (SGPT) 22 U/L (10-68); BILIRUBIN - TOTAL 0.25 mg/dL (0.2-1.3); CALCIUM 7.9 mg/dL (8.5-10.1); CARBON DIOXIDE 24.9 mmol/L (21.0-32.0); CHLORIDE - SERUM 93 mmol/L (98-107); CREATININE - SERUM 1.6 mg/dL (0.6-1.3); MAGNESIUM - SERUM 1.7 mg/dL (1.8-2.4); POTASSIUM - SERUM 4.4 mmol/L (3.5-5.1); PRO BNP 258 pg/mL (0-125); PROTEIN - SERUM 6.5 g/dL (6.4-8.2); SODIUM 128 mmol/L (136-145); THYROID STIMULATING HORMONE 0.77 uIU/mL (0.36-3.74); UREA NITROGEN 13 mg/dL (7-18); eGFR NON AFRICAN AMERICAN 48 mL/min (90-120)
[2018-06-30 20:17] LABS: CALC OSMOLALITY 284 mosm/kg (275-300); TROPONIN-I 0.016 ng/mL (0.000-0.060)
[2018-06-30 20:18] LABS: GLUCOSE 609 mg/dL (74-106)
[2018-06-30 20:30] VITALS: BP 121/91
[2018-06-30 20:38] LABS: BASOPHILS 0.6 % (0-2); EOSINOPHILS 2.5 % (0-7); HEMATOCRIT 38.9 % (42.0-54.0); HEMOGLOBIN 12.6 g/dL (13.5-17.5); IMMATURE GRANULOCYTES 0.3 % (0-5); LYMPHOCYTES 25.4 % (15-50); MCH 24.2 pg (26.0-34.0); MCHC 32.4 g/dL (31.0-37.0); MCV 74.7 fL (80.0-100.0); MEAN PLATELET VOLUME 11.7 fL (7.4-10.4); MONOCYTES 9.4 % (2-11); NEUTROPHILS 61.8 % (40-80); PLATELET COUNT 151 10x3/uL (130-400); RBC 5.21 10x6/uL (4.20-6.10); RDW 15.1 % (11.5-14.5); WBC 6.7 10x3/uL (4.8-10.8)
[2018-06-30 20:59] LABS: UDS - AMPHET NEGATIVE QUAL (NEGATIVE); UDS - BARB NEGATIVE QUAL (NEGATIVE); UDS - BENZO NEGATIVE QUAL (NEGATIVE); UDS - COCAINE NEGATIVE QUAL (NEGATIVE); UDS - OPIATE NEGATIVE QUAL (NEGATIVE); UDS - PCP NEGATIVE QUAL (NEGATIVE); UDS - THC NEGATIVE QUAL (NEGATIVE)
[2018-06-30 21:05] LABS: APPEARANCE CLEAR (CLEAR); BILIRUBIN NEGATIVE (NEGATIVE); COLOR STRAW (YELLOW); GLUCOSE 1000 mg/dL (NEGATIVE); KETONE NEGATIVE (NEGATIVE); NITRITE NEGATIVE (NEGATIVE); PROTEIN TRACE mg/dL (NEGATIVE); SPECIFIC GRAVITY 1.005 (1.005-1.020); UROBILINOGEN NORMAL (NORMAL)
[2018-06-30 21:07] LABS: BACTERIA FEW /hpf (NONE SEEN); RED CELLS - URINE 0-5 /hpf (0-5); WHITE CELLS - URINE 0-5 /hpf (0-5)
[2018-06-30 21:30] VITALS: BP 129/91
--- NOTE | 2018-06-30 22:07 | NUR ---
FSBS - 395. ERP INFORMED.
--- NOTE | 2018-06-30 22:27 | NUR ---
PER EDP RAMÍREZ PT TO RECEIVE 8 UNITS REGULAR INSULIN, INSTEAD OF FULL DOSE PER SLIDING SCALE GUIDELINE AT THIS TIME.
--- NOTE | 2018-06-30 22:56 | NUR ---
PT ARRIVED TO FLOOR BY WHEELCHAIR, REPORT TAKEN FROM JASON PRESCOTT RN. PT ANSWERS SOME QUESTIONS BUT BLAMES A PREVIOUS STROKE ON HIS INABILITY TO ANSWER OTHER QUESTIONS. VITALS STABLE WILL CTM.
[2018-07-01] VITALS (7 sets, daily range): BP systolic 140–161; BP diastolic 71–84; BMI 36.7; BMI 36.6
--- NOTE | 2018-07-01 00:53 | NUR ---
RECHECKED PT BLOOD SUGAR OF 386, ADMINISTERED ORDERED INSULIN PER SLIDING SCALE. WILL CTM.
--- NOTE | 2018-07-01 01:40 | NUR ---
ARRIVED ON FLOOR IN W/C ASSISTED BY STAFF. TRANSFERED SELF TO BED. ALERT AND ORIENTED X4. UP AD TALISHA . DENIES ANY PAIN AT THIS TIME. EDUCATED ON RISK OF UNCONTROLLED DIABETES AND THE NEED TO KEEP BLOOD SUGARS UNDER CONTROL. VOICED UNDERSTANDING. DENIES ANY NEEDS AT THIS TIME.
--- NOTE | 2018-07-01 08:32 | NUR ---
RECEIVED A/A/OX4. DENIES ANY PAIN OR DISCOMFORT AND NO REQUESTS VOICED. ASSESSMENT COMPLETED WITH NO CHANGES NOTED. BED IN LOW POSITION IN LOCKED POSITION, SIDERAILS UP X 2 AND CALL LIGHT IN REACH. WILL CONTINUE POC.
[2018-07-01 12:06] LABS: ALBUMIN 2.8 g/dL (3.4-5.0); ALKALINE PHOSPHATASE 73 U/L (46-116); ALT (SGPT) 22 U/L (10-68); BILIRUBIN - TOTAL 0.22 mg/dL (0.2-1.3); CALC OSMOLALITY 276 mosm/kg (275-300); CALCIUM 7.6 mg/dL (8.5-10.1); CARBON DIOXIDE 26.7 mmol/L (21.0-32.0); CHLORIDE - SERUM 101 mmol/L (98-107); CREATININE - SERUM 0.8 mg/dL (0.6-1.3); GLUCOSE 362 mg/dL (74-106); POTASSIUM - SERUM 3.8 mmol/L (3.5-5.1); PROTEIN - SERUM 6.1 g/dL (6.4-8.2); SODIUM 131 mmol/L (136-145); UREA NITROGEN 9 mg/dL (7-18); eGFR NON AFRICAN AMERICAN > 90 mL/min (90-120)
--- NOTE | 2018-07-01 14:23 | MORECARE ---
CASE MANAGEMENT DISCHARGE SUMMARY PATIENT: JOSE MOTA ELDA UNIT: [id number] ADM DATE: 06/30/18 AGE: 53 : 61 SEX: M ROOM/BED: D.2129 AUTHOR: DENISE SARAVIA PHYSICIAN: REFERRING PHYSICIAN: BRITT CHIN MD DATE OF SERVICE: 07/01/18 Discharge Plan Patient Name: JOSE MOTA Facility: [facility]:[place] : 1965 Planned Disposition: Home Anticipated Discharge Date: 07/01/18 Discharge Date: Expected LOS: 1 Initial Reviewer: [email or web address] Initial Review Date: 07/01/2018 Generated: 07/01/18 3:23 pm Patient Name: JOSE MOTA Page 82626 at 1423 All edits/amendments must be made on the electronic document DICTATION DATE: 07/01/18 1423 REAL ESTATE RENTAL AGENT: МАРИНА 07/01/18 1423 RPT#: [id number] DC DATE: STATUS: ADM IN [facility] [address] [place] [address] END OF REPORT
--- NOTE | 2018-07-01 14:33 | MORECARE ---
CASE MANAGEMENT DISCHARGE SUMMARY PATIENT: JOSE MOTA ELDA UNIT: [id number] ADM DATE: 06/30/18 AGE: 53 : 61 SEX: M ROOM/BED: D.5254 AUTHOR: RANIDOC PHYSICIAN: REFERRING PHYSICIAN: BRITT CHIN MD DATE OF SERVICE: 07/01/18 Discharge Plan Patient Name: JOSE MOTA Facility: [facility]:[place] : 1965 Planned Disposition: Home Anticipated Discharge Date: 07/01/18 Discharge Date: Expected LOS: 1 Initial Reviewer: [email or web address] Initial Review Date: 07/01/2018 Generated: 07/01/18 3:33 pm Comments DCP- Discharge Planning Updated by [email or web address]: Miko Persaud on 07/01/18 1:[address] Patient Name: JOSE MOTA Admission Status: ER Accout number: [id number] Admission Date: 06-30-2018 : 1965 Admission Diagnosis: Attending: BRITT CIHN Current LOS: 1 Anticipated DC Date: 07-01-2018 Planned Disposition: Home Primary Insurance: 5 Minutes ADMINISTRATION Discharge Planning Comments: CM REVIEWED CHART, PT REPORTS BEING [facility] PATIENT, THERE WAS NO DOCUMENTED CALL TO [facility] FOR POSSIBLE TRANSFER REQUEST WHEN PT WAS ADMITTED. CM MET WITH PT IN ROOM TO DISCUSS DISCHARGE PLANNING AND NEEDS. PT REPORTS LIVING AT HOME INDEPENDENTLY AND ALONE. PT HAS WALKER AND POWER SCOOTER FROM [facility] [employer] [facility]. PT HAS NO OUTSIDE SERVICES ASSISTING IN THE HOME. CM DISCUSSED AVAILABILITY OF HOME HEALTH, REHAB SERVICES AND MEDICAL EQUIPMENT. PT DENIES DISCHARGE NEEDS, REPORTS HE IS NOT SURE HOW HE WILL GET HOME AT DISCHARGE AND HE WILL HAVE TO FIND SOMEONE TO PICK HIM UP FOR DISCHARGE HOME. CM DISCUSSED MEDICAID TRANSPORTATION SERVICES PT HAS MEDICAID, PROVIDED PT WITH MEDICAID TRANSPORTATION NUMBER TO CALL AND CHECK ELIGIBILITY AND CERTIFY HIMESELF. CM ALSO EDUCATED PT ON AVAILABILTY OF DIABLED BUS TRANSPORT WITH [facility], HOW TO OBTAIN APPLICATION AND PROCESS NEEDED TO CERTIFY FOR [facility] TRANSPORTATION. PT REPORTS UNDERSTANDING, DENIES DISCHARGE NEEDS. CM DISCUSSED CALL TO [facility] AND TRANSFER IF POSSIBLE. PT STATES HE DID NOT REMEMBER ANY ONE ASKING ABOUT [facility] TRANSFER OR A CALL BEING MADE TO [facility]; PT WOULD LIKE [facility] TRANSFER IF THEY CAN ACCEPT HIM. CM CALLED [facility] EXPEDITOR, SPOKE TO CAM AND PROVIDED PT INFORMATION AND NURSING UNIT WELL DOCTOR CONTACT INFORMATION. [facility] WILL CALL DOCTOR AND NURSING UNIT IF [facility] BED BECOMES AVAILABLE PRIOR TO PT'S DISCHARGE HOME. PT REPORTS PLAN TO DISCHARGE HOME IF TREATMENT IS COMLPLETED AT [place]. PT WILL HAVE TO CALL AND "FIND A RIDE" AT DISCHARGE. CM TO FOLLOW AND ASSIST NEEDED. Lithographing Machine Operator: Miko Persaud DCPIA - Discharge Planning Initial Assessment Updated by [email or web address]: Miko Persaud on 07/01/18 2:25 pm * Is the patient Alert and Oriented? Yes * How many steps to enter\\exit or inside your home? * PCP [facility], [facility] [place] * Pharmacy [facility] * Preadmission Environment Home Alone * ADLs Independent * Equipment Power Chair or Electric Scooter Walker * Other Equipment [facility] - MEDICAL EQUIPMENT PROVIDER * List name and contact numbers for known caregivers / representatives who currently or will assist patient after discharge: HAO MOTA, MOTHER, * Verbal permission to speak to the caregivers and representatives has been obtained from the patient. N/A * Community resources currently utilized None * Please name any agencies selected above. NONE * Additional services required to return to the preadmission environment? No * Can the patient safely return to the preadmission environment? Yes * Has this patient been hospitalized within the prior 30 days at any hospital? No Last DP export: 07/01/18 1:23 p Patient Name: JOSE MOTA Page 95423 at 1433 All edits/amendments must be made on the electronic document DICTATION DATE: 07/01/181431 GAUGER CHIEF: МАРИНА 07/01/181431 RPT#: [id number] [place] DATE: STATUS: ADM IN [facility] [address] [facility] [place] [address] END OF REPORT
--- NOTE | 2018-07-01 16:03 | NUR ---
22 GUAGE PIV INSERTED TO R.FA X2 STICKS. NS CONNECTED AND INFUSING ORDERED. PT HAVING ACTIVE CHEST PAIN, PROVIDED PT WITH MORPHINE TO HELP THE PAIN. AT BEDSIDE ASSESSING PT. CONSULTED CARDIOLOGY AND STAT EKG PERFORMED. DISCUSSED WITH PRIMARY NURSE AT BEDSIDE WILL CTM.
[2018-07-01 16:48] LABS: CKMB 1.1 U/L (0.0-3.6); CREATINE KINASE 53 UL (21-232); TROPONIN-I 0.033 ng/mL (0.000-0.060)
--- NOTE | 2018-07-01 17:30 | NUR ---
RECEIVED REPORT, WILL ASSUME CARE OF PT, DENIES ANY NEEDS AT THIS TIME, BED IS LOW, SRX2, CALL LIGHT IN REACH, WILL CONTINUE PLAN OF CARE
--- NOTE | 2018-07-01 21:00 | NUR ---
[id number] 12 UNIT OF HUMULIN R
[2018-07-01 21:46] LABS: CKMB 0.9 U/L (0.0-3.6); CREATINE KINASE 69 UL (21-232); TROPONIN-I 0.033 ng/mL (0.000-0.060)
--- NOTE | 2018-07-01 22:30 | NUR ---
PT COMPLAINS OF CHEST PAIN, SR-ON TELEMTRY, DID EKG-SR, WILL CONTINUE PLAN OF CARE
--- NOTE | 2018-07-01 23:00 | NUR ---
PT ASKING FOR MORPHINE GAVE ORDER
[2018-07-02] VITALS: BP 101/53
[2018-07-02 04:20] VITALS: BP 141/72
--- NOTE | 2018-07-02 04:45 | NUR ---
I have reviewed this patient and I concur with the Shift Assessment completed by the Licensed Practical Nurse today this shift.
[2018-07-02 05:13] LABS: BASOPHILS 0.9 % (0-2); EOSINOPHILS 3.6 % (0-7); HEMATOCRIT 35.8 % (42.0-54.0); HEMOGLOBIN 11.4 g/dL (13.5-17.5); IMMATURE GRANULOCYTES 0.2 % (0-5); LYMPHOCYTES 31.9 % (15-50); MCH 23.8 pg (26.0-34.0); MCHC 31.8 g/dL (31.0-37.0); MCV 74.9 fL (80.0-100.0); MEAN PLATELET VOLUME 11.8 fL (7.4-10.4); MONOCYTES 11.3 % (2-11); NEUTROPHILS 52.1 % (40-80); PLATELET COUNT 153 10x3/uL (130-400); RBC 4.78 10x6/uL (4.20-6.10)
[2018-07-02 05:17] LABS: WBC 4.7 10x3/uL (4.8-10.8)
[2018-07-02 05:38] LABS: ALBUMIN 2.6 g/dL (3.4-5.0); ALKALINE PHOSPHATASE 67 U/L (46-116); ALT (SGPT) 21 U/L (10-68); BILIRUBIN - TOTAL 0.17 mg/dL (0.2-1.3); CALCIUM 7.7 mg/dL (8.5-10.1); CARBON DIOXIDE 26.1 mmol/L (21.0-32.0); CHLORIDE - SERUM 102 mmol/L (98-107); CKMB 0.9 U/L (0.0-3.6); CREATINE KINASE 42 UL (21-232); CREATININE - SERUM 0.9 mg/dL (0.6-1.3); MAGNESIUM - SERUM 1.7 mg/dL (1.8-2.4); POTASSIUM - SERUM 3.6 mmol/L (3.5-5.1); SODIUM 135 mmol/L (136-145); TROPONIN-I 0.029 ng/mL (0.000-0.060); UREA NITROGEN 10 mg/dL (7-18); eGFR NON AFRICAN AMERICAN > 90 mL/min (90-120)
[2018-07-02 05:40] LABS: CALC OSMOLALITY 276 mosm/kg (275-300); GLUCOSE 245 mg/dL (74-106)
--- NOTE | 2018-07-02 05:43 | NUR ---
MAG1.7, WILL FOLLOW EP
--- NOTE | 2018-07-02 07:00 | NUR ---
RECEIVED BEDSIDE SHIFT REPORT. ASSUMED CARE OF PATIENT. CALL LIGHT WITHIN REACH. PATIENT SLEEPING PRONE POSITION. EASILY AROUSED. DENIES NEEDS. NO DISTRESS.
[2018-07-02 08:35] VITALS: BP 140/86
[2018-07-02 08:42] VITALS: Ht 182.9 cm; Wt 122.7 kg
--- NOTE | 2018-07-02 11:40 | NUR ---
FSBS 319. NO INSULIN ADMINISTERED PER SLIDING SCALE BECAUSE PATIENT IS NPO AND PATIENT IS NON COMPLIANT WITH INSULIN AT HOME. WILL RECHECK FSBS WHEN PATIENT RETURNS FROM [facility] FOR RESALE PURCHASING AGENT AND IS ABLE TO EAT.
--- NOTE | 2018-07-02 11:58 | NUR ---
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 INFORMED MARYT THAT THIS ACTING MANAGER SPOKE WITH HIS MOM AND SHE IS AWARE HE IS GOING TO THE CYBER SECURITY INSTRUCTOR AND SHE WILL BE UP TO THE HOSPITAL IN ABOUT AN HOUR. PATIENT THANKED THIS ACTING MANAGER.
--- NOTE | 2018-07-02 12:54 | NUR ---
PATIENT BACK TO UNIT SOON FROM NOVELTY CHAIN MAKER. ONE STENT TO LAD. ATTEMPTED RIGHT RADIAL BUT IT CROSSED OVER SO PATIENT DOES HAVE A TR BAND, HOWEVER RIGHT GROIN WAS ACCESSED TO PLACE STENT. 6 FR EXOCELE.
--- NOTE | 2018-07-02 13:08 | NUR ---
RECEIVED PATIENT BACK FROM ENGINE ROOM HELPER. PATIENT DROWSEY BUT EASILY AROUSED. BP 135/92, PULSE 88. PERIPHERAL PULSES PATENT BILATERALLY. TR BAND TO RIGHT WRIST. DRESSING TO RIGHT GROIN CLEAN, DRY AND INTACT. NO HEMATOMA FORMATION NOTED. O2 APPLIED AT 2L VIA NC UNTIL PATIENT MORE AWAKE. CALL LIGHT WITHIN REACH. NO FAMILY AT BEDSIDE.
--- NOTE | 2018-07-02 14:45 | NUR ---
5CC AIR REMOVED FROM RIGHT TR BAND. NO BLEEDING.
--- NOTE | 2018-07-02 14:49 | NUR ---
DIET MESSAGE SENT FOR CHIPS, SANDWHICH AND GRAPES DAVID.
[2018-07-02 15:37] VITALS: BP 139/74
--- NOTE | 2018-07-02 15:53 | MORECARE ---
CASE MANAGEMENT DISCHARGE SUMMARY PATIENT: JOSE MOTA ELDA UNIT: [id number] ADM DATE: 06/30/18 AGE: 53 : 61 SEX: M ROOM/BED: D.4445 AUTHOR: RANIDOC PHYSICIAN: REFERRING PHYSICIAN: BRITT CHIN MD DATE OF SERVICE: 07/02/18 Discharge Plan Patient Name: JOSE MOTA Facility: [facility]:[place] : 1965 Planned Disposition: Home Anticipated Discharge Date: 07/02/18 Discharge Date: Expected LOS: 2 Initial Reviewer: [email or web address] Initial Review Date: 07/01/2018 Generated: 07/02/18 4:52 pm DCP- Discharge Planning Updated by [email or web address]: Miko Persaud on 07/01/18 1:[address] Patient Name: JOSE MOTA Admission Status: ER Accout number: [id number] Admission Date: 06-30-2018 : 1965 Admission Diagnosis: Attending: BRITT CHIN Current LOS: 1 Anticipated DC Date: 07-01-2018 Planned Disposition: Home Primary Insurance: [employer] Discharge Planning Comments: CM REVIEWED CHART, PT REPORTS BEING [facility] PAT[facility], THERE WAS NO DOCUMENTED CALL TO [place] FOR POSSIBLE TRANSFER REQUEST WHEN PT WAS ADMITTED. CM MET WITH PT IN ROOM TO DISCUSS DISCHARGE PLANNING AND NEEDS. PT REPORTS LIVING AT HOME INDEPENDENTLY AND ALONE. PT HAS WALKER AND POWER SCOOTER FROM [employer] [facility]. PT HAS NO OUTSIDE SERVICES ASSISTING IN THE HOME. CM DISCUSSED AVAILABILITY OF HOME HEALTH, REHAB SERVICES AND MEDICAL EQUIPMENT. PT DENIES DISCHARGE NEEDS, REPORTS HE IS NOT SURE HOW HE WILL GET HOME AT DISCHARGE AND HE WILL HAVE TO FIND SOMEONE TO PICK HIM UP FOR DISCHARGE HOME. CM DISCUSSED MEDICAID TRANSPORTATION SERVICES PT HAS MEDICAID, PROVIDED PT WITH MEDICAID TRANSPORTATION NUMBER TO CALL AND CHECK ELIGIBILITY AND CERTIFY HIMESELF. CM ALSO EDUCATED PT ON AVAILABILTY OF DIABLED BUS TRANSPORT WITH [employer], HOW TO OBTAIN APPLICATION AND PROCESS NEEDED TO CERTIFY FOR CITY [facility] BUS TRANSPORTATION. PT REPORTS UNDERSTANDING, DENIES DISCHARGE NEEDS. CM DISCUSSED CALL TO [facility] AND TRANSFER IF POSSIBLE. PT STATES HE DID NOT REMEMBER ANY ONE ASKING ABOUT [facility] TRANSFER OR A CALL BEING MADE TO [facility]; PT WOULD LIKE [facility] TRANSFER IF THEY CAN ACCEPT HIM. CM CALLED [facility] EXPEDITOR, SPOKE TO CAM AND PROVIDED PT INFORMATION AND NURSING UNIT WELL DOCTOR CONTACT INFORMATION. [facility] WILL CALL DOCTOR AND NURSING UNIT IF [facility] BED BECOMES AVAILABLE PRIOR TO PT'S DISCHARGE HOME. PT REPORTS PLAN TO DISCHARGE HOME IF TREATMENT IS COMLPLETED AT [place]. PT WILL HAVE TO CALL AND "FIND A RIDE" AT DISCHARGE. CM TO FOLLOW AND ASSIST NEEDED. Jitterbug Operator: Miko Persaud DCPIA - Discharge Planning Initial Assessment Updated by [email or web address]: Miko Persaud on 07/01/18 2:25 pm * Is the patient Alert and Oriented? Yes * How many steps to enter\\exit or inside your home? * PCP [facility]CE, [facility] [place] * [facility]acy [facility] * Preadmission Environment Home Alone * ADLs Independent * Equipment Power Chair or Electric Scooter Walker * Other Equipment [facility] - MEDICAL EQUIPMENT PROVIDER * List name and contact numbers for known caregivers / representatives who currently or will assist patient after discharge: HAO MOTA, MOTHER, * Verbal permission to speak to the caregivers and representatives has been obtained from the patient. N/A * Community resources currently utilized None * Please name any agencies selected above. NONE * Additional services required to return to the preadmission environment? No * Can the patient safely return to the preadmission environment? Yes * Has this patient been hospitalized within the prior 30 days at any hospital? No Last DP export: 07/01/18 1:33 p Patient Name: JOSE MOTA Page [id number] at 1553 All edits/amendments must be made on the electronic document DICTATION DATE: 07/02/181551 COAL EQUIPMENT OPERATOR: МАРИНА 07/02/181551 RPT#: [id number] [place] DATE: STATUS: ADM IN [facility] [address] [place] [address] END OF REPORT
--- NOTE | 2018-07-02 16:14 | MORECARE ---
CASE MANAGEMENT DISCHARGE SUMMARY PATIENT: JOSE MOTA UNIT: [id number] ADM DATE: 06/30/18 AGE: 53 : 61 SEX: M ROOM/BED: D.8471 AUTHOR: RANI,DOC PHYSICIAN: REFERRING PHYSICIAN: BRITT CHIN MD DATE OF SERVICE: 07/02/18 Discharge Plan Patient Name: JOSE MOTA Facility: [facility]:[place] : 1965 Planned Disposition: Home Anticipated Discharge Date: 07/02/18 Discharge Date: Expected LOS: 2 Initial Reviewer: [email or web address] Initial Review Date: 07/01/2018 Generated: 07/02/18 5:14 pm Comments DCP- Discharge Planning Updated by [email or web address]: Miko Persaud on 07/02/18 3:[address] Patient Name: JOSE MOTA Encounter No: [id number] : 1965 Primary Insurance: [employer] Anticipated DC Date: 07-02-2018 Planned Disposition: Home DCP follow-up note: CM CALLED [facility] MACHINE OFFBEARER ON DUTY, , NOTIFIED OF PT'S DISCHARGE HOME. NO FURTHER DISCHARGE NEEDS NOTED AT THIS TIME. KIANA Villanueva DCP- Discharge Planning Updated by [email or web address]: Miko Persaud on 07/01/18 1:[address] Patient Name: JOSE MOTA Admission Status: ER Accout number: [id number] Admission Date: 06-30-2018 : 1965 Admission Diagnosis: Attending: BRITT CHIN Current LOS: 1 Anticipated DC Date: 07-01-2018 Planned Disposition: Home Primary Insurance: [employer] Discharge Planning Comments: CM REVIEWED CHART, PT REPORTS BEING [facility] PATIENT, THERE WAS NO DOCUMENTED CALL TO [place] FOR POSSIBLE TRANSFER REQUEST WHEN PT WAS ADMITTED. CM MET WITH PT IN ROOM TO DISCUSS DISCHARGE PLANNING AND NEEDS. PT REPORTS LIVING AT HOME INDEPENDENTLY AND ALONE. PT HAS WALKER AND POWER SCOOTER FROM [employer] [facility]. PT HAS NO OUTSIDE SERVICES ASSISTING IN THE HOME. CM DISCUSSED AVAILABILITY OF HOME HEALTH, REHAB SERVICES AND MEDICAL EQUIPMENT. PT DENIES DISCHARGE NEEDS, REPORTS HE IS NOT SURE HOW HE WILL GET HOME AT DISCHARGE AND HE WILL HAVE TO FIND SOMEONE TO PICK HIM UP FOR DISCHARGE HOME. CM DISCUSSED MEDICAID TRANSPORTATION SERVICES PT HAS MEDICAID, PROVIDED PT WITH MEDICAID TRANSPORTATION NUMBER TO CALL AND CHECK ELIGIBILITY AND CERTIFY HIMESELF. CM ALSO EDUCATED PT ON AVAILABILTY OF DIABLED BUS TRANSPORT WITH [employer], HOW TO OBTAIN APPLICATION AND PROCESS NEEDED TO CERTIFY FOR CITY [facility] BUS TRANSPORTATION. PT REPORTS UNDERSTANDING, DENIES DISCHARGE NEEDS. CM DISCUSSED CALL TO [facility] AND TRANSFER IF POSSIBLE. PT STATES HE DID NOT REMEMBER ANY ONE ASKING ABOUT [facility] TRANSFER OR A CALL BEING MADE TO [facility]; PT WOULD LIKE [facility] TRANSFER IF THEY CAN ACCEPT HIM. CM CALLED [facility] EXPEDITOR, SPOKE TO CAM AND PROVIDED PT INFORMATION AND NURSING UNIT WELL DOCTOR CONTACT INFORMATION. [facility] WILL CALL DOCTOR AND NURSING UNIT IF VA BED BECOMES AVAILABLE PRIOR TO PT'S DISCHARGE HOME. PT REPORTS PLAN TO DISCHARGE HOME IF TREATMENT IS COMLPLETED AT [place]. PT WILL HAVE TO CALL AND "FIND A RIDE" AT DISCHARGE. CM TO FOLLOW AND ASSIST NEEDED. Lift Team Technician: Miko Persaud DCPIA - Discharge Planning Initial Assessment Updated by [id number]: Miko Persaud on 07/01/18 2:25 pm * Is the patient Alert and Oriented? Yes * How many steps to enter\\exit or inside your home? * PCP [facility], [facility], [place] * [facility]acy [facility] * Preadmission Environment Home Alone * ADLs Independent * Equipment Power Chair or Electric Scooter Walker * Other Equipment [employer] - MEDICAL EQUIPMENT PROVIDER * List name and contact numbers for known caregivers / representatives who currently or will assist patient after discharge: HAO MOTA, MOTHER, * Verbal permission to speak to the caregivers and representatives has been obtained from the patient. N/A * Community resources currently utilized None * Please name any agencies selected above. NONE * Additional services required to return to the preadmission environment? No * Can the patient safely return to the preadmission environment? Yes * Has this patient been hospitalized within the prior 30 days at any hospital? No Last DP export: 07/02/18 2:52 p Patient Name: JOSE MOTA Page 54596 at 1614 All edits/amendments must be made on the electronic document DICTATION DATE: 07/02/181613 LEAD CUSTOMER SERVICE REPRESENTATIVE: МАРИНА 07/02/181613 RPT#: [id number] DC DATE: STATUS: ADM IN [facility] [address] [place] [address] END OF REPORT
--- NOTE | 2018-07-02 17:00 | NUR ---
FSBS 320. 12 UNITS HUMULIN ADMINISTERED PER SLIDING SCALE.
--- NOTE | 2018-07-02 17:41 | NUR ---
REMOVED PTS L.WRIST PIV WITH CATHETER TIP FULLY INTACT. REMOVED PTS R.FA PIV WITH CATHETER TIP FULLY INTACT. DISCHARGE TEACHING PROVIDED AND PAPERS SIGNED. PT VERBALIZED UNDERSTANDING AND DENIES ANY QUESTIONS OR CONCERNS. D/C TELEMETRY AND RETURNED TO [facility]. NO FURTHER NEEDS. FAMILY AT BEDSIDE COLLECTING BELONGINGS.
--- NOTE | 2018-07-02 18:00 | NUR ---
DEDRICK LEFT UNIT WITH ALL PERSONAL BELONGINGS. PATIENT DISCHARGED TO HOME WITH FAMILY. PATIENT IN NO DISTRESS UPON LEAVING UNIT.
--- NOTE | 2018-07-03 14:40 | EC ---
PATIENT:JOSE MOTA DATE OF SERVICE: 06/30/18 SEX: M MEDICAL RECORD: [id number] DATE OF : [birth year] LOCATION:D.M2 D.212 AGE OF PATIENT: 53 ADMISSION DATE: 06/30/18 REFERRING PHYSICIAN: INTERPRETING PHYSICIAN: CHIP QUINONEZ MD ECHOCARDIOGRAM REPORT ECHO CHARGES 4 ECHO COMPLETE Date: 07/02/18 CLINICAL DIAGNOSIS: CP/NEAR SYNCOPE ECHOCARDIOGRAPHIC MEASUREMENTS (adult normal given) AC root (d.<3.7cm) 3.2 cm LV Septum d (<1.2 cm> 2.1 cm Valve Excursion 2.0 cm LV Septum (systole) 2.3 cm Left Atria (s.<4.0cm> 4.5 cm LVPW d(<1.2cm) 2.2 cm RV (d.<2.3cm) 2.7 cm LVPW (sytole) 2.7 cm LV diastole(<5.6CM) 4.5 cm MV E-F(>70mm/sec) cm LV systole 2.3 cm LVOT Diameter 2.0 cm MV exc.(>10mm) cm Est.ejection fraction (50-75%) % DOPPLER: LVIT cm/sec A 90.0 cm/sec E 114 cm/sec LA cm/sec RVSP 44.2 mmHg LVOT 108 cm/sec AOP1/2T m/s Asc. Ao 203 cm/sec RVOT 71.0 cm/sec RA cm/sec PA 113 cm/sec AV Gradient Peak 16.4 mmHg AV Mean 7.9 mmHg AV Area 1.7 cm MV Gradient Peak 5.4 mmHg MV Mean 3.0 mmHg MV Area cm COMMENTS: Molding Press Operator: 1 NELI COKEROE Clinical Laboratory Medical Director: 3 Dr. Hannon TAPE# PACS Pericardial Effusion N DATE OF SERVICE: LVH is present. LV internal dimension is normal. Wall motion is normal. EF is greater than or equal to 55%. Aortic valve sclerosis without stenosis by Doppler interrogation. Left atrium is dilated at 4.5 cm. Mitral valve thickened. Mitral annular calcification. Mild MR. Right-sided chamber is grossly normal. Mild TR. TRANSINT:[id number] Voice Confirmation ID: [id number] DOCUMENT ID: [id number] ECHOCARDIOGRAM REPORT [id number] SVETLANAJOSE VANESSA CHIP QUINONEZ MD at 1440 CC: [id number] DICTATION DATE: 07/02/18 1125 TUFT MACHINE OPERATOR: 07/02/18 1204 DIS IN 07/02/18 [place] [id number] [place] [id number]
--- NOTE | 2018-07-03 14:40 | OP ---
PATIENT NAME: JOSE MOTA MEDICAL RECORD: [id number] :[birth year] LOCATION:D.M2 D.2129 ADMISSION DATE:06/30/18 SURGEON: CHIP QUINONEZ MD DATE OF OPERATION: 07/02/2018 PROCEDURE: Left heart catheterization, selective coronary angiography, right femoral artery approach. CATHETERS: A 5-Nepalese sheath, 5/4 left and right Archana, 5/4 pig. The procedure was well tolerated. The patient was returned to jorge. Sheath was removed. ExoSeal device was placed. FINDINGS: Left ventriculography in 30-degree CENTENO view: Normal wall motion, normal systolic function. CORONARY ANATOMY: LEFT MAIN: Left main is free of disease. LAD: An area of previous stenting has severe diffuse in-stent restenosis. CIRCUMFLEX: Free of disease. RIGHT CORONARY ARTERY: Totally occluded, fills via left to right collaterals. IMPRESSION: Plan intervention LAD momentarily. DESCRIPTION OF PROCEDURE: A 5-Nepalese sheath was exchanged for a 6-Nepalese sheath. XB LAD guiding catheter provided excellent guide catheter support followed by a 300 cm Whisper wire, which was placed across the restenotic stent down this portion of the vessel. Stent deployed was a 3.5 x 30 mm Rosendo drug-eluting stent up to 14 atmospheres for 45 seconds. Final angiography shows excellent resolution of diffuse in-stent restenosis of 80% to no significant residual. RAE flow was 3 throughout the procedure. Heparin was used during the case. Sheath was closed with ExoSeal device. TRANSINT:[id number] Voice Confirmation ID: [id number] DOCUMENT ID: [id number] CHIP QUINONEZ MD at 1440 CC: [id number] DICTATION DATE: 07/02/18 1259 LOSS PREVENTION GUARD: 07/02/18 1309 DIS IN 07/02/18 [facility] [address] [place] [address]
== END 2018-07-02 18:00 | disposition home or self-care (01) ==
LOC: D.ER 18:46 → OBSVTIME 22:10 → D.M2 22:10 → D.EDHOLD 22:10 → D.M2 22:18
PROVIDERS: Family Medicine; ADMIT Internal Medicine Nephrology; ATTEND Internal Medicine Nephrology
DX: T82.855A Stenosis of coronary artery stent, initial encounter (principal); R55 Syncope and collapse; I11.0 Hypertensive heart disease with heart failure; I50.9 Heart failure, unspecified; I25.119 Atherosclerotic heart disease of native coronary artery with unspecified angina pectoris; E11.65 Type 2 diabetes mellitus with hyperglycemia; E78.5 Hyperlipidemia, unspecified; Y83.8 Other surgical procedures as the cause of abnormal reaction of the patient, or of later complication, without mention of misadventure at the time of the procedure; I25.82 Chronic total occlusion of coronary artery; F41.9 Anxiety disorder, unspecified; I25.2 Old myocardial infarction; F32.9 Major depressive disorder, single episode, unspecified; Z86.73 Personal history of transient ischemic attack (TIA), and cerebral infarction without residual deficits

== ENCOUNTER 2018-07-04 11:55 | Emergency (ER) | payer OTHER, MEDICARE, MEDICAID ==
[~2018-07-04] VITALS: Ht 182.9 cm; Wt 118.2 kg
[2018-07-04 12:02] VITALS: Ht 182.9 cm; Wt 118.2 kg
[2018-07-04 13:47] LABS: ALBUMIN 3.1 g/dL (3.4-5.0); ALKALINE PHOSPHATASE 87 U/L (46-116); ALT (SGPT) 21 U/L (10-68); BILIRUBIN - TOTAL 0.31 mg/dL (0.2-1.3); CALC OSMOLALITY 279 mosm/kg (275-300); CALCIUM 8.7 mg/dL (8.5-10.1); CARBON DIOXIDE 24.9 mmol/L (21.0-32.0); CHLORIDE - SERUM 100 mmol/L (98-107); CREATINE KINASE 42 UL (21-232); CREATININE - SERUM 1.3 mg/dL (0.6-1.3); GLUCOSE 254 mg/dL (74-106); POTASSIUM - SERUM 4.1 mmol/L (3.5-5.1); PROTEIN - SERUM 6.9 g/dL (6.4-8.2); SODIUM 135 mmol/L (136-145); TROPONIN-I 0.017 ng/mL (0.000-0.060); UREA NITROGEN 15 mg/dL (7-18); eGFR NON AFRICAN AMERICAN 61 mL/min (90-120)
[2018-07-04 13:57] LABS: BASOPHILS 0.5 % (0-2); EOSINOPHILS 2.6 % (0-7); HEMATOCRIT 40.6 % (42.0-54.0); IMMATURE GRANULOCYTES 0.3 % (0-5); LYMPHOCYTES 25.7 % (15-50); MCH 24.1 pg (26.0-34.0); MCV 75.2 fL (80.0-100.0); MONOCYTES 10.4 % (2-11); NEUTROPHILS 60.5 % (40-80); PLATELET COUNT 163 10x3/uL (130-400); RDW 15.3 % (11.5-14.5); WBC 6.2 10x3/uL (4.8-10.8)
[2018-07-04 14:03] LABS: APTT 23.9 SECONDS (22.8-39.4); INR 0.98 (0.85-1.17); PROTIME 12.5 SECONDS (11.6-15.0)
[2018-07-04 16:48] VITALS: BP 136/85
== END 2018-07-04 18:21 | disposition other institution (70) ==
LOC: D.ER 11:55
PROVIDERS: Emergency Medicine
DX: R07.9 Chest pain, unspecified (principal); I25.10 Atherosclerotic heart disease of native coronary artery without angina pectoris; E11.9 Type 2 diabetes mellitus without complications; Z91.19 Patient's noncompliance with other medical treatment and regimen

== ENCOUNTER 2018-07-18 15:36 | Emergency (ER) | payer OTHER, MEDICARE, MEDICAID ==
[~2018-07-18] VITALS: Ht 182.9 cm; Wt 121.8 kg
[2018-07-18 15:46] VITALS: Ht 182.9 cm; Wt 121.8 kg
[2018-07-18 17:14] LABS: EOSINOPHILS 3.4 % (0-7); HEMATOCRIT 33.9 % (42.0-54.0); HEMOGLOBIN 10.5 g/dL (13.5-17.5); IMMATURE GRANULOCYTES 0.8 % (0-5); MCH 24.1 pg (26.0-34.0); MCV 77.8 fL (80.0-100.0); MEAN PLATELET VOLUME 11.7 fL (7.4-10.4); MONOCYTES 13.5 % (2-11); NEUTROPHILS 54.3 % (40-80); PLATELET COUNT 135 10x3/uL (130-400); RBC 4.36 10x6/uL (4.20-6.10); RDW 15.5 % (11.5-14.5)
[2018-07-18 17:23] LABS: APTT 28.3 SECONDS (22.8-39.4); INR 0.98 (0.85-1.17); PROTIME 12.5 SECONDS (11.6-15.0)
[2018-07-18 18:06] LABS: ALBUMIN 2.7 g/dL (3.4-5.0); ALKALINE PHOSPHATASE 107 U/L (46-116); ALT (SGPT) 26 U/L (10-68); BILIRUBIN - TOTAL 0.22 mg/dL (0.2-1.3); CALCIUM 8.2 mg/dL (8.5-10.1); CARBON DIOXIDE 27.8 mmol/L (21.0-32.0); CHLORIDE - SERUM 99 mmol/L (98-107); CKMB 1.5 U/L (0.0-3.6); CREATINE KINASE 94 UL (21-232); CREATININE - SERUM 1.1 mg/dL (0.6-1.3); MAGNESIUM - SERUM 1.5 mg/dL (1.8-2.4); POTASSIUM - SERUM 4.2 mmol/L (3.5-5.1); PROTEIN - SERUM 6.9 g/dL (6.4-8.2); SODIUM 133 mmol/L (136-145); UREA NITROGEN 14 mg/dL (7-18); eGFR NON AFRICAN AMERICAN 74 mL/min (90-120)
[2018-07-18 18:13] LABS: CALC OSMOLALITY 284 mosm/kg (275-300); GLUCOSE 425 mg/dL (74-106); TROPONIN-I 0.084 ng/mL (0.000-0.060)
[2018-07-18 21:52] VITALS: BP 158/72
== END 2018-07-18 21:52 | disposition home or self-care (01) ==
LOC: D.ER 15:36
PROVIDERS: Emergency Medicine
DX: R07.9 Chest pain, unspecified (principal); I25.10 Atherosclerotic heart disease of native coronary artery without angina pectoris; E11.9 Type 2 diabetes mellitus without complications; I10 Essential (primary) hypertension; R42 Dizziness and giddiness

== ENCOUNTER 2018-08-11 20:20 | Emergency (ER) | payer OTHER, MEDICARE, MEDICAID ==
[~2018-08-11] VITALS: Ht 182.9 cm; Wt 97.5 kg
[2018-08-11 20:22] VITALS: Ht 182.9 cm; Wt 97.5 kg
[2018-08-11 21:27] LABS: BASOPHILS 0.3 % (0-2); EOSINOPHILS 4.7 % (0-7); HEMATOCRIT 40.4 % (42.0-54.0); IMMATURE GRANULOCYTES 0.3 % (0-5); LYMPHOCYTES 20.6 % (15-50); MCH 25.7 pg (26.0-34.0); MCHC 32.2 g/dL (31.0-37.0); MCV 79.8 fL (80.0-100.0); MEAN PLATELET VOLUME 11.9 fL (7.4-10.4); NEUTROPHILS 65.1 % (40-80); PLATELET COUNT 151 10x3/uL (130-400); RBC 5.06 10x6/uL (4.20-6.10); RDW 16.6 % (11.5-14.5); WBC 6.4 10x3/uL (4.8-10.8)
[2018-08-11 21:41] LABS: ALBUMIN 3.1 g/dL (3.4-5.0); ANION GAP 14.6 mmol/L (8-16); BILIRUBIN - TOTAL 0.29 mg/dL (0.2-1.3); CALCIUM 8.7 mg/dL (8.5-10.1); CARBON DIOXIDE 26.7 mmol/L (21.0-32.0); CREATININE - SERUM 1.2 mg/dL (0.6-1.3); POTASSIUM - SERUM 4.3 mmol/L (3.5-5.1); PROTEIN - SERUM 7.4 g/dL (6.4-8.2)
[2018-08-11 22:32] LABS: APPEARANCE CLEAR (CLEAR); BILIRUBIN NEGATIVE (NEGATIVE); COLOR YELLOW (YELLOW); GLUCOSE 500 mg/dL (NEGATIVE); KETONE NEGATIVE (NEGATIVE); NITRITE NEGATIVE (NEGATIVE); PROTEIN 2+ mg/dL (NEGATIVE); SPECIFIC GRAVITY 1.015 (1.005-1.020); UROBILINOGEN NORMAL (NORMAL)
[2018-08-12 00:35] VITALS: BP 127/85
== END 2018-08-12 00:35 ==
LOC: D.ER 20:20
PROVIDERS: Family Medicine
DX: R55 Syncope and collapse (principal); Z86.73 Personal history of transient ischemic attack (TIA), and cerebral infarction without residual deficits

== ENCOUNTER 2019-09-23 11:49 | Inpatient (IN) | payer MEDICARE, MEDICAID ==
[~2019-09-23] VITALS: Ht 182.9 cm; Wt 113.6 kg
[2019-09-23 12:35] VITALS: BP 60/31
[2019-09-23 12:50] LABS: HEMATOCRIT 39.6 % (42.0-54.0); HEMOGLOBIN 12.6 g/dL (13.5-17.5); LYMPHOCYTES 15.7 % (15-50); MCH 27.5 pg (26.0-34.0); MCHC 31.8 g/dL (31.0-37.0); MCV 86.5 fL (80.0-100.0); MEAN PLATELET VOLUME 12.1 fL (7.4-10.4); RBC 4.58 10x6/uL (4.20-6.10); RDW 12.7 % (11.5-14.5); WBC 8.9 10x3/uL (4.8-10.8)
[2019-09-23 12:52] LABS: CALC OSMOLALITY 281 mosm/kg (275-300); CALCIUM 8.8 mg/dL (8.5-10.1); CARBON DIOXIDE 28.5 mmol/L (21.0-32.0); CHLORIDE - SERUM 102 mmol/L (98-107); CREATININE - SERUM 2.4 mg/dL (0.6-1.3); POTASSIUM - SERUM 3.8 mmol/L (3.5-5.1); SODIUM 140 mmol/L (136-145); UREA NITROGEN 26 mg/dL (7-18); eGFR NON AFRICAN AMERICAN 30 mL/min (90-120)
[2019-09-23 12:53] LABS: GLUCOSE 59 mg/dL (74-106)
[2019-09-23 12:56] LABS: PLATELET COUNT 192 10x3/uL (130-400)
[2019-09-23 12:58] LABS: APTT 29.4 SECONDS (22.8-39.4); INR 0.96 (0.85-1.17); PROTIME 12.7 SECONDS (11.6-15.0)
[2019-09-23 13:07] LABS: ALBUMIN 3.6 g/dL (3.4-5.0); ALKALINE PHOSPHATASE 132 U/L (30-120); ALT (SGPT) 31 U/L (10-68); BILIRUBIN - TOTAL 0.39 mg/dL (0.2-1.3); CKMB 2.7 U/L (0.0-3.6); CREATINE KINASE 121 UL (21-232); MAGNESIUM - SERUM 1.4 mg/dL (1.8-2.4); PROTEIN - SERUM 7.7 g/dL (6.4-8.2); TROPONIN-I < 0.017 ng/mL (0.000-0.060)
--- NOTE | 2019-09-23 13:47 | NUR ---
ERP INFORMED OF LACTIC ACID OF 2.5
--- NOTE | 2019-09-23 15:50 | NUR ---
PT ARRIVED VIA BED AND AMBULATED TO BED WITH MINIMAL ASSIST. CALL LIGHT WTIHIN REACH. BED IN LOWEST POSITION. WILL CONTINUE TO MONITOR.
[2019-09-23 16:41] VITALS: BP 103/61; Ht 182.9 cm; Wt 113.6 kg
[2019-09-23 18:29] VITALS: BP 113/72
[2019-09-23 20:00] VITALS: BP 121/67
[2019-09-24] VITALS: BP 118/68
--- NOTE | 2019-09-24 01:18 | NUR ---
PT RESTING IN BED WATCHING TV AT THIS TIME. RR EVEN AND UNLABORED. NO S/S OF DISTRESS. VITALS STABLE. WILL CONTINUE TO MONITOR.
--- NOTE | 2019-09-24 03:34 | NUR ---
I have reviewed this patient and I concur with the Shift Assessment completed by the Licensed Practical Nurse today this shift.
[2019-09-24 04:00] VITALS: BP 108/50
[2019-09-24 05:12] LABS: BASOPHILS 0.1 % (0-2); HEMATOCRIT 34.7 % (42.0-54.0); HEMOGLOBIN 10.9 g/dL (13.5-17.5); IMMATURE GRANULOCYTES 0.1 % (0-5); LYMPHOCYTES 11.7 % (15-50); MCH 27.8 pg (26.0-34.0); MCHC 31.4 g/dL (31.0-37.0); MONOCYTES 11.3 % (2-11); NEUTROPHILS 72.8 % (40-80); PLATELET COUNT 160 10x3/uL (130-400); RBC 3.92 10x6/uL (4.20-6.10); RDW 12.7 % (11.5-14.5); WBC 7.3 10x3/uL (4.8-10.8)
[2019-09-24 05:22] LABS: MCV 88.5 fL (80.0-100.0)
[2019-09-24 05:39] LABS: ALBUMIN 2.9 g/dL (3.4-5.0); ANION GAP 9.7 mmol/L (8-16); BILIRUBIN - TOTAL 0.4 mg/dL (0.2-1.3); CALCIUM 7.9 mg/dL (8.5-10.1); CARBON DIOXIDE 29.3 mmol/L (21.0-32.0); CREATININE - SERUM 2.2 mg/dL (0.6-1.3); MAGNESIUM - SERUM 1.1 mg/dL (1.8-2.4); PHOSPHOROUS 4.3 mg/dL (2.5-4.9); PROTEIN - SERUM 6.4 g/dL (6.4-8.2)
[2019-09-24 08:25] VITALS: BP 86/33
[2019-09-24 09:19] VITALS: BP 162/88
--- NOTE | 2019-09-24 11:50 | NUR ---
DC PAPERWORK GIVEN TO PT. PIC DC'D CATH TIP INTACT. NO ISSES REPORTED. PT CALLED RIDE AND REPORTS HE IS READY TO GO HOME.
== END 2019-09-24 12:26 | disposition home or self-care (01) | DRG 315 ==
LOC: D.ER 11:49 → D.M2 14:23
PROVIDERS: Family Medicine; ADMIT Legal Medicine; ATTEND Legal Medicine
DX: I95.9 Hypotension, unspecified (principal); I42.9 Cardiomyopathy, unspecified; N17.9 Acute kidney failure, unspecified; E11.9 Type 2 diabetes mellitus without complications; I50.9 Heart failure, unspecified; I11.0 Hypertensive heart disease with heart failure; Z86.73 Personal history of transient ischemic attack (TIA), and cerebral infarction without residual deficits

== ENCOUNTER 2019-10-30 22:24 | Inpatient (IN) | payer MEDICARE, MEDICAID ==
[~2019-10-30] VITALS: Ht 182.9 cm; Wt 119.5 kg
--- NOTE | ~2019-10-30 | HEMODYNAMI ---
PATIENT:JOSE MOTA MEDICAL RECORD: [id number] : 61 [id number] ADMISSION DATE: 10/31/19 Generatedon:10/31/201913:01 Patient name: JOSE MOTA Patient #: [id number] SSN: : 1965 Date of study: 10/31/2019 Page: Of Hemodynamic Procedure Report Patient Data Patient Demographics Procedure consent was obtained First Name: JOSE Gender: Male Last Name: SVETLANA : 1965 [facility] Initial: ELDA Age: 54 year(s) Patient #: [id number] Race: Additional ID: [id number] Contact details Address: [address] [place] [address] State: [place] City: [place] Zip code: [address] Past Medical History Allergies Allergen Reaction Date Comments Reported Other allergy 10/29/2015 Penicillins Other allergy 02/28/2017 pcn Penicillins 03/01/2017 Other allergy 07/02/2018 PCN Penicillins 10/31/2019 Admission Admission Data Admission Date: 10/31/2019 Admission Time: 0:43 Admit Source: Emergency Insurance Payor: Medicare, department Medicaid Room #: D.2114 [facility] #: [id number] Height (in.): 71.65 BSA: 2.37 (m2) Height (cm.): 182 BMI: 35.62 (kg/m2) Weight (lbs.): 260.15 Weight (kg.): 118 Lab Results Lab Result Date: 10/31/2019 Lab Result Time: 0:00 Biochemistry Name Units Result Min Max BUN mg/dl 18 --(---*)-- 7 18 Creatinine mg/dl 1.4 --(----)*- 0.6 1.3 eGFR ml/min 56 *-(----)-- 90 120 NONAFRICAN CBC Name Units Result Min Max Hematocrit % 40.9 -*(----)-- 42 54 Hemoglobin g/dl 13.1 -*(----)-- 13.5 17.5 Procedure Procedure Types Cath Procedure Diagnostic Procedure [facility] w/Coronaries Sedation Charges Moderate Sedation up to 15 minutes PCI Procedure Coronary Stent Coronary Stent Initial Hemochron ACT Test Procedure Description Procedure Date Procedure Date: 10/31/2019 Procedure Start Time: 12:37 Procedure End Time: 12:56 Procedure Staff Name Function Angel Calvillo MD Performing Physician Pablo Briseno RT Monitor Leeanna Temple RT Scrub Cecy Bustos RN Nurse Procedure Data Cath Procedure Fluoroscopy Diagnostic fluoroscopy Total fluoroscopy Time: 2.8 time: 2.8 min min Diagnostic fluoroscopy Total fluoroscopy dose: 958 dose: 958 mGy mGy Contrast Material Contrast Material Type Amount (ml) Isovue 370 98 Entry Location Entry Primary Successful Side Size Upsize Upsize Entry Closure Succes sful Closure Location (Fr) 1 (Fr) 2 (Fr) Remarks Device Remarks Femoral Right 5 Fr 6 Fr Exoseal artery Short Estimated blood loss: 10 ml Diagnostic catheters Device Type Used For End Catheter Placement MULTIPACK JL 4.0 5Fr Procedure catheter MULTIPACK 3DRC 5Fr Procedure catheter MULTIPACK Pigtail 5 Fr Procedure catheter Procedure Complications No complications Procedure Medications Medication Administration Route Dosage 0.9% NaCl I.V. 100 ml/hr Oxygen etCO2 Nasal cannula 2 l/min Lidocaine 2% added to field 20 Heparin Flush Bag added to field 2 bags (1000units/500ml NS) Versed I.V. 2 mg Fentanyl I.V. 50 mcg Versed I.V. 2 mg Fentanyl I.V. 50 mcg Heparin Bolus I.V. 5000 units Integrilin (Bolus I.V. 10.7 ml 2mg/ml) Brilinta P.O. 180 mg Fentanyl I.V. 50 mcg Benadryl I.V. 50 mg Hemodynamics Rest BSA: 2.37 (m2) O2 Consumption: Estimated: 316.46 (ml/min) O2 Consumption indexed : Estimated:133.53 (ml/min/m) Heart Rate: 110 (bpm) Pressure Samples Time Site Value (mmHg) Purpose Heart Use Rate(bpm) 12:43 LV 137/18,23 EDP 110 12:43 LV 142/17,24 Snapshot 109 12:44 AO 139/96(119) Pullback 102 12:47 AO 107/74(89) Snapshot 107 Gradients Valve Time Site Site 2 Mean SEP/DFP Peak To Heart Use 1 (mmHg) (sec/min) Peak Rate (mmHg) (bpm) Aortic 12:44 LV AO 30 10 102 139/96(119) Calculations Valve P-P Mean Valve Index Valve Source Name Gradient Area Flow (cm2) Aortic 30 30 Snapshots Pre Cath Intra NCS Post Cath Vital Signs Time Heart Resp SPO2 etCO2 NIBP (mmHg) Rhythm Pain Sedation Rate (ipm) (%) (mmHg) Status Level (bpm) 12:28:03 106 12 98 35.3 167/101(127) ST 0 (11) 10(A) , No pain 12:32:48 109 11 97 40.6 160/105(133) ST 0 (11) 10(A) , No pain 12:37:23 108 10 98 41.3 144/95(114) ST 0 (11) 10(A) , No pain 12:41:55 107 19 99 41.4 148/98(119) ST 0 (11) 10(A) , No pain 12:46:29 106 15 98 31.5 143/92(109) ST 0 (11) 10(A) , No pain 12:50:54 109 16 98 45.1 104/78(96) ST 0 (11) 9(A) , No pain 12:55:08 108 11 97 44.3 120/91(117) ST 0 (11) 10(A) , No pain Medications Time Medication Route Dose Verified Delivered Reason Notes Effectiveness by by 12:31:11 Benadryl I.V. 50 mg Angel Cecy used for KarliAndrew Bustos procedure MD CARDONA 12:31:35 0.9% NaCl I.V. 100 Angel Cecy used for ml/hr KarliAndrew Bustos procedure MD [place] 12:31:41 Oxygen etCO2 2 Angel Cecy used for Nasal l/min KarliAndrew Bustos procedure cannula MD C[place] 12:31:45 Lidocaine 2% added 20ml Angel Ortiz for local to vial [facility] anesthetic field MD CARD[place] 12:31:49 Heparin Flush added 2 Angel Angel used for Bag to bags KarliAndrew Calvillo procedure (1000units/500ml field MD CARD[place] NS) 12:36:46 Versed I.V. 2 mg Angel Cecy for sedation [facility] Andrew Bustos MD, RN 12:36:56 Fentanyl I.V. 50 Angel Cecy for sedation mcg [facility] Andrew Bustos MD RN 12:41:32 Versed I.V. 2 mg Angel Lópezyla for sedation [facility] Andrew Bustos MD RN 12:41:39 Fentanyl I.V. 50 Angel Cecy for sedation mcg [facility] Andrew Bustos MD RN 12:45:45 Heparin Bolus I.V. 5000 Angel Cecy for verif ied units [facility] Andrew Bustos anticoagulation with Dr. MD DULCE Hannon 12:45:57 Integrilin I.V. 10.7 Angel Lópezyla for (Bolus 2mg/ml) ml [facility] Andrew Bustos antiplatelet RN therapy 12:46:11 Brilinta P.O. [address] Angel Sam for mg [facility] Andrew Bustos antiplatelet RN therapy 12:47:42 Fentanyl I.V. 50 Angel Lópezyla for sedation mcg [facility] Andrew Bustos MD energy advisor Log Time Note 12:00:08 Informed consent obtained and on chart 12:01:01 Procedure Status Urgent Heart Cath (IP). 12:01:02 Time tracking: Regular hours (M-F 7:00 - 5:00) 12:01:04 Plan of Care:Hemodynamics will remain stable., Cardiac rhythm will remain stable., Comfort level will be maintained., Respiratory function will remain adequate., Patient/ family verbilizes understanding of procedure., Procedure tolerated without complication., Recovers from procedure without complications.. 12:01:11 H&P Date Dictated: 10/31/2019 ER History on chart.. 12:01:23 Patient allergic to Penicillins 12:04:59 Lab Result : BUN 18 mg/dl 12:04:59 Lab Result : Creatinine 1.4 mg/dl 12:04:59 Lab Result : eGFR NONAFRICAN 56 ml/min 12:04:59 Lab Result : Hemoglobin 13.1 g/dl 12:04:59 Lab Result : Hematocrit 40.9 % 12:05:15 Leeanna Temple RT(R) sent for patient. Start room use. 12:21:10 Patient received from PCU to CCL 1 Alert and oriented. Tansferred to table in Supine position. 12:21:11 Warm blankets applied, and alex hugger turned on for patient comfort. 12:21:11 Correct patient and procedure confirmed by team. 12:21:12 ECG and BP/O2 sat monitors applied to patient. 12:21:13 Pre-procedure instructions explained to patient. 12:21:13 Pre-op teaching completed and patient verbalized understanding. 12:21:14 Family in waiting room. 12:21:15 Patient NPO since Midnight. 12:21:18 Is the patient allergic to Iodine/contrast media? No. 12:26:26 Vital chart was started 12:31:11 Benadryl 50 mg I.V. was administered by Cecy Bustos RN; used for procedure; Verbal order read back and verified. 12:31:35 0.9% NaCl 100 ml/hr I.V. was administered by Cecy Bustos RN; used for procedure; Verbal order read back and verified. 12:31:41 Oxygen 2 l/min etCO2 Nasal cannula was administered by Cecy Bustos RN; used for procedure; Verbal order read back and verified. 12:31:45 Lidocaine 2% 20ml vial added to field was administered by Angel Calvillo MD; for local anesthetic; Verbal order read back and verified. 12:31:49 Heparin Flush Bag (1000units/500ml NS) 2 bags added to field was administered by Angel Calvillo MD; used for procedure; Verbal order read back and verified. 12:33:24 Baseline sample Acquired. 12:33:28 Rhythm: sinus tachycardia 12:33:29 Full Disclosure recording started 12:33:32 Is patient on blood thinner?No 12:33:34 Patient diabetic? Yes. 12:33:34 If diabetic: On Metformin? No 12:33:41 Previous problem with sedation/anesthesia? No ? 12:33:43 Snore? Yes 12:33:44 Sleep apnea? No 12:33:45 Deviated septum? No 12:33:46 Opens mouth fully? Yes 12:33:47 Sticks out tongue? Yes 12:33:53 Airway obstruction? Yes CHILDHOOD ASTHMA 12:33:56 Dentures? No ? 12:33:59 Pre procedure: right dorsailis pedis pulse 1+ Palpable, but thready & weak; easily obliterated 12:34:01 Patient pain scale 0/10 ?. 12:34:09 IV patent on arrival in left hand with 0.9% NaCl at [facility]. 12:34:19 Lab results completed and on chart. 12:34:43 Risk of Mortality: 1.2% 12:34:49 Risk of blood transfusion: 1.8% 12:34:52 Risk of DANIEL: 6% 12:34:56 Right groin area was prepped with chlora-prep and draped in sterile fashion 12:34:57 Alarms reviewed by R. N. 12:34:57 Sharps counted by scrub and verified by R.N. 12:35:02 Use device set Femoral Dx 12:35:03 ACIST Syringe (29099) opened to sterile field. 12:35:04 Bag Decanter (2002S) opened to sterile field. 12:35:04 Medline Cath Pack ([id number]) opened to sterile field. 12:35:05 ACIST Hand Control (57588) opened to sterile field. 12:35:06 ACIST Manifold (05093) opened to sterile field. 12:35:06 DIAGNOSTIC Multipack 5Fr catheter set (EW6951) opened to sterile field. 12:35:07 Tegaderm 4 x 4 (1626W) opened to sterile field. 12:35:08 EMERALD Guide Wire (831-887) opened to sterile field. 12:35:08 SHEATH 5FR [place] (FAG830) opened to sterile field. 12:35:17 Physician arrived 12:35:17 --------ALL STOP TIME OUT------ 12:35:18 Final Timeout: patient, procedure, and site verified with staff and physician. All members of the team are in agreement. 12:35:19 Right groin site verified by team. 12:35:21 Fire Safety Assessment: A--An alcohol-based skin anteseptic being used preoperatively., C--Open oxygen or nitrous oxide is being used., D--An ESU, laser, or fiber-optic light is being used. 12:35:24 Physical assessment completed. ASA score P 3 - A patient with severe systemic disease as per Angel Calvillo MD. 12:35:32 3a) 45-59 Moderately reduced kidney function. 12:35:46 Maximum allowable contrast dose (3.7 X eGFR X 0.75)155 ml. 12:36:46 Versed 2 mg I.V. was administered by Cecy Bustos RN; for sedation; Verbal order read back and verified. 12:36:56 Fentanyl 50 mcg I.V. was administered by Cecy Akash RN; for sedation; Verbal order read back and verified. 12:37:28 Zero performed for pressure channel P1 12:37:32 Zero performed for pressure channel P1 12:37:34 Zero performed for pressure channel P1 12:37:36 Zero performed for pressure channel P1 12:37:46 Procedure started. 12:37:48 Local anesthetic to right femoral artery with Lidocaine 2% by Angel Calvillo MD.INITIAL ACCESS ONLY 12:37:55 A 5 Fr sheath was inserted into the Right Femoral artery 12:40:04 Insurance Payor : Medicare, Medicaid 12:40:08 Patient Weight : 260.15 lbs 12:40:12 Patient Height : 71.65 inches 12:40:15 Admit Source: Emergency department 12:40:43 A MULTIPACK JL 4.0 5Fr catheter was advanced over the wire and used for Procedure. 12:40:45 LCA angiography performed. 12:41:32 Versed 2 mg I.V. was administered by Cecy Bustos RN; for sedation; Verbal order read back and verified. 12:41:39 Fentanyl 50 mcg I.V. was administered by Cecy Bustos RN; for sedation; Verbal order read back and verified. 12:42:07 Catheter exchanged over wire. 12:42:11 A MULTIPACK 3DRC 5Fr catheter was advanced over the wire and used for Procedure. 12:42:34 RCA angiography performed. 12:42:38 A MULTIPACK Pigtail 5 Fr catheter was advanced over the wire and used for Procedure. 12:44:00 LV gram done using CENTENO 12:44:03 Injector settings: Ml/sec: 10, Volume: 20, 12:44:05 LV hemodynamics recorded. 12:44:09 EF : 45 % 12:45:45 Heparin Bolus 5000 units I.V. was administered by Cecy Bustos RN; for anticoagulation; verified with Dr. Hannon Verbal order read back and verified. 12:45:57 Integrilin (Bolus 2mg/ml) 10.7 ml I.V. was administered by Cecy Bustos RN; for antiplatelet therapy; Verbal order read back and verified. 12:46:02 Catheter removed. 12:46:11 Brilinta 180 mg P.O. was administered by Cecy Bustos RN; for antiplatelet therapy; Verbal order read back and verified. 12:46:20 WHISPER 300cm guide wire ([id number]) opened to sterile field. 12:46:20 GUIDE 6FR XBLAD 3.5 catheter ([id number]) opened to sterile field. 12:46:21 INFLATOR Merit BasixCompak (WA3224) opened to sterile field. 12:46:21 SHEATH 6FR [place] (ZFL192) opened to sterile field. 12:46:28 Sheath upsized to a 6 Fr Short. 12:46:39 6 Fr XBLAD 3.5 guide catheter was inserted over the wire 12:46:47 Pre PCI Site: [employer] pLAD has 90% stenosis. 12:47:42 Fentanyl 50 mcg I.V. was administered by Cecy Bustos RN; for sedation; Verbal order read back and verified. 12:49:02 WHISPER wire advanced. 12:49:54 Wire advanced across lesion. 12:51:59 Place stent Inflation Number: 1 A ESTEFANIA RX 3.5 x 18 stent ([id number]) was prepped and advanced across the Prox LAD 90. The stent was deployed at 16 ROXY for 0:31 (min:sec) 0. 12:52:30 Post PCI Site: [employer] pLAD has 0% stenosis. 12:52:55 Inflation number: 1 The stent balloon was then re-inflated across the Mid LAD to 8 ROXY for 0:45 (min:sec) . 12:53:09 ACC Pre-intervention RAE Flow is 3. 12:53:15 ACC Post-intervention RAE Flow is 3. 12:53:25 Stent catheter was removed intact over wire. 12:53:25 Wire removed. 12:53:26 Guide catheter removed. 12:53:31 EXOSEAL 6Fr (EX600) opened to sterile field. 12:53:38 Sheath removed intact; hemostasis achieved with Exoseal to the Right Femoral artery. 12:53:39 Procedure ended.(Physican Out) 12:54:29 Fluoroscopy time 02.80 minutes. 12:54:33 Fluoroscopy dose: 958 mGy 12:54:33 Flurop Dose total: 958 12:54:40 Dose Area Product 96953 mGy/cm. 12:54:54 Contrast amount:Isovue 370 98ml. 12:54:56 Maximum allowable dose exceeded? No. 12:54:57 Sharps counted by scrub and verified by R.N. 12:54:58 Insertion/operative site no bleeding no hematoma. 12:55:00 Post-op/insertion site Right Femoral artery dressed using a 4 x 4 and Tegaderm. 12:55:03 Post right femoral artery:stable, soft, clean and dry 12:55:05 Post Procedure Pulses reassessed and unchanged 12:55:07 Post-procedure physical assessment completed. ASA score P 3 - A patient with severe systemic disease as per Angel Calvillo MD. 12:55:08 Post procedure rhythm: unchanged. 12:55:10 Estimated blood loss: 10 ml 12:55:11 Post procedure instruction explained to patient.Patient verbalizes understanding. 12:55:12 Patient needs reinforcement of post procedure teaching. 12:55:43 Procedure type changed to Cath procedure, Diagnostic procedure, LHC, C w/Coronaries, Sedation Charges, Moderate Sedation up to 15 minutes, PCI procedure, Coronary Stent, Coronary Stent Initial, Hemochron ACT Test 12:56:21 Procedure and supply charges have been captured, reviewed, submitted and are correct. 12:56:23 Procedure Complication : No complications 12:56:26 Vital chart was stopped 12:56:30 [facility] Findings: MVD- PCI performed (see procedure note) 12:56:32 Operative report dictated upon procedure completion. 12:56:33 See physician's report for complete and final results. 12:56:34 Report given to PCU. 12:56:44 Patient transfered to PCU with Stretcher. 12:56:45 Procedure ended. 12:56:45 Full Disclosure recording stopped 12:56:53 ACC-PCI Only Patient was given prescriptions, or instructed by Angel Calvillo MD to start/continue the following medications upon discharge: Aspirin, Brilinta 12:56:54 End room use (Document Last) 12:59:47 ACT drawn and resulted at 227 seconds. (normal therapeutic range 180-240 seconds). Intervention Summary Intervention Notes Time ActionType Lesion and Equipment Used Action# Pressure Duration Attributes 12:51:59 Place stent Prox LAD ESTEFANIA RX 3.5 x 1 16 00:31 18 stent ([id number]) 12:52:55 Reinflate Mid LAD ESTEFANIA RX 3.5 x 1 8 00:45 stent 18 stent balloon ([id number]) Device Usage Item Name Manufacture Quantity Catalog Hospital Part [facility] Lot# / Number Charge Number Stock Stock Serial# Code ACIST Syringe Acist 1 27650 028983 884209 421904 20 (77175) Medical Systems Inc Bag Decanter Microtek 1 2001S 270283 20609 325694 5 (2001S) Medical Inc. Medline Cath Medline 1 [id number] 366256 21895 511122 5 Pack ([id number]) ACIST Hand Acist 1 19779 160009 450617 825354 5 Control Medical (11336) Systems Inc ACIST Manifold Acist 1 71693 936972 921343 635295 5 (75630) Medical Systems Inc DIAGNOSTIC Cardinal 1 [id number] 408693 52816 176116 30 Multipack 5Fr Health catheter set (NW3836) Tegaderm 4 x 4 3M 1 1626W 897817 853322 098925 5 (1626W) EMERALD Guide Cardinal 1 502-455 015613 149887 536917 5 Wire (502-455) Health SHEATH 5FR Terumo 1 VIM964 471754 184969 238804 5 [place] (BGG430) MULTIPACK JL Cardinal 1 048397 5 4.0 5Fr Health catheter MULTIPACK 3DRC Cardinal 1 498202 5 5Fr catheter Health MULTIPACK Cardinal 1 304573 5 Pigtail 5 Fr Health catheter WHISPER 300cm Herrera 1 [id number] 165276 338107 278916 5 guide wire Vascular ([id number]) GUIDE 6FR Cardinal 1 [id number] 402849 133111 783508 10 XBLAD 3.5 Health catheter ([id number]) INFLATOR Merit Merit 1 SY6080 428529 562500 978936 15 Bas[employer]ogam[employer] Medical (OH8087) SHEATH 6FR Terumo 1 MYH635 300985 772749 635017 40 [place] (STQ890) ESTEFANIA RX 3.5 x Medtronic 1 [id number] 130089 9875771 538618 5 [id number] 18 stent ([id number]) EXOSEAL 6Fr Cardinal 1 EX600 137288 934401 664430 10 (EX600) Health Signature Audit [place] Stage Time Signature Unsigned Intra-Procedure 10/31/2019 Cecy Bustos 1:00:54 PM RN; Pablo Briseno RT(R); Angel Calvillo MD [facility] [address] [place] [address]
[2019-10-30 22:46] LABS: HEMATOCRIT 48.3 % (42.0-54.0); HEMOGLOBIN 15.1 g/dL (13.5-17.5); LYMPHOCYTES 26.6 % (15-50); MCH 27.4 pg (26.0-34.0); MCHC 31.3 g/dL (31.0-37.0); MCV 87.5 fL (80.0-100.0); MEAN PLATELET VOLUME 12.3 fL (7.4-10.4); PLATELET COUNT 192 10x3/uL (130-400); RBC 5.52 10x6/uL (4.20-6.10); RDW 13.1 % (11.5-14.5); WBC 8.5 10x3/uL (4.8-10.8)
[2019-10-30 22:54] LABS: APTT 25.4 SECONDS (22.8-39.4); INR 0.94 (0.85-1.17); PROTIME 12.6 SECONDS (11.6-15.0)
[2019-10-30 23:22] LABS: ALBUMIN 3.4 g/dL (3.4-5.0); ALKALINE PHOSPHATASE 207 U/L (30-120); ALT (SGPT) 37 U/L (10-68); BILIRUBIN - TOTAL 0.24 mg/dL (0.2-1.3); CALCIUM 8.6 mg/dL (8.5-10.1); CARBON DIOXIDE 22.4 mmol/L (21.0-32.0); CHLORIDE - SERUM 98 mmol/L (98-107); CKMB 7.5 U/L (0.0-3.6); CREATINE KINASE 234 UL (21-232); CREATININE - SERUM 1.8 mg/dL (0.6-1.3); MAGNESIUM - SERUM 1.5 mg/dL (1.8-2.4); POTASSIUM - SERUM 4.2 mmol/L (3.5-5.1); PROTEIN - SERUM 7.8 g/dL (6.4-8.2); SODIUM 135 mmol/L (136-145); UREA NITROGEN 16 mg/dL (7-18); eGFR NON AFRICAN AMERICAN 42 mL/min (90-120)
[2019-10-30 23:24] VITALS: BP 160/101
[2019-10-30 23:28] LABS: CALC OSMOLALITY 296 mosm/kg (275-300)
[2019-10-30 23:31] LABS: GLUCOSE 558 mg/dL (74-106); TROPONIN-I 0.721 ng/mL (0.000-0.060)
[2019-10-31] VITALS (12 sets, daily range): BP systolic 128–179; BP diastolic 71–111; Ht 182.9 cm; Wt 119.5 kg
[2019-10-31] MEDS ORDERED: BRILINTA90 MG PO ×2 (04:01→14:24)
[2019-10-31] MEDS ORDERED: BUMEX2 MG PO (04:01)
[2019-10-31] MEDS ORDERED: CYMBALTA30 MG PO (04:02)
[2019-10-31] MEDS ORDERED: ZETIA10 MG PO (04:03)
[2019-10-31] MEDS ORDERED: VISTARIL50 MG PO (04:04)
[2019-10-31] MEDS ORDERED: ISOSORBIDE DINI30 MG PO (04:05)
[2019-10-31] MEDS ORDERED: MS CONTIN30 MG PO (04:06)
[2019-10-31 04:41] LABS: CKMB 122.8 U/L (0.0-3.6)
[2019-10-31 04:42] LABS: CREATINE KINASE 972 UL (21-232); TROPONIN-I 27.497 ng/mL (0.000-0.060)
[2019-10-31 07:47] LABS: ALT (SGPT) 44 U/L (10-68); CALCIUM 7.6 mg/dL (8.5-10.1); CARBON DIOXIDE 23.8 mmol/L (21.0-32.0); CHLORIDE - SERUM 101 mmol/L (98-107); CHOL - HDL RATIO 4.1 ratio (2.3-4.9); CHOLESTEROL, TOTAL 95 mg/dL (0-200); CREATININE - SERUM 1.4 mg/dL (0.6-1.3); HDL CHOLESTEROL 23 mg/dL (32-96); POTASSIUM - SERUM 3.9 mmol/L (3.5-5.1); SODIUM 134 mmol/L (136-145); TRIGLYCERIDE 410 mg/dL (30-200); UREA NITROGEN 18 mg/dL (7-18); eGFR NON AFRICAN AMERICAN 56 mL/min (90-120)
[2019-10-31 07:48] LABS: CALC OSMOLALITY 280 mosm/kg (275-300); GLUCOSE 303 mg/dL (74-106)
[2019-10-31 08:20] LABS: HEMATOCRIT 40.9 % (42.0-54.0); HEMOGLOBIN 13.1 g/dL (13.5-17.5); LYMPHOCYTES 15.4 % (15-50); MCH 27.9 pg (26.0-34.0); NEUTROPHILS 75.5 % (40-80); PLATELET COUNT 165 10x3/uL (130-400); RDW 12.8 % (11.5-14.5); WBC 9.7 10x3/uL (4.8-10.8)
[2019-10-31 10:46] LABS: CKMB 134.4 U/L (0.0-3.6)
[2019-10-31 10:48] LABS: CREATINE KINASE 984 UL (21-232); TROPONIN-I 34.951 ng/mL (0.000-0.060)
--- NOTE | 2019-10-31 12:23 | NUR ---
0700 REPORT RECEIVED INTRODUCED MYSELF TO PATIENT Yvette AHUJA JUST LEFT THE ROOM NEW ORDERS NOTED
--- NOTE | 2019-10-31 12:25 | NUR ---
0830 CONSENTS SIGNED GROIN SHAVED
--- NOTE | 2019-10-31 12:27 | NUR ---
0831 BREAKFAST COMPLETE INSTRUCTED THAT H IS NOW NPO VRBALIZED UNDRSTANDING
--- NOTE | 2019-10-31 12:32 | NUR ---
1220 TAKEN TO TELEPHONE SUPERVISOR
--- NOTE | 2019-10-31 17:09 | NUR ---
1330 RETURNED FROM ELECTRICAL DESIGN ENGINEER INSTRUCTED TO LAY FLAT WITHOUT MOVING OR BENDING HIS LEGS VERBALIZD UNDERSTANDING
--- NOTE | 2019-10-31 17:11 | NUR ---
1601 C/O CHEST PAIN COWORKER NURSE GAVE NITRO X 1 SL AND DID [id number] NOTED THAT T-WAV BECAME INVERTED
--- NOTE | 2019-10-31 17:12 | NUR ---
DR OLSON NOTIFIED RE T WAVE NEW ORDERS NOTED
--- NOTE | 2019-10-31 19:31 | NUR ---
RECIEVED UP IN BED WITH EYES OPEN AND TV ON. ALERT AND ORIENTED X4. UP AD TALISHA. O2@ 3 LITERS PER N/C. IV TO LT HAND WITH NS AT 100CC/HR. TELEMETRY IN PLACE. DSG TO RT GROIN CDI. DENIES ANY NEEDS AT THIS TIME.
[2019-10-31 21:01] LABS: CKMB 40.8 U/L (0.0-3.6)
[2019-10-31 21:03] LABS: CREATINE KINASE 457 UL (21-232); TROPONIN-I 24.613 ng/mL (0.000-0.060)
[2019-11-01 02:41] VITALS: BP 127/80
[2019-11-01 05:09] LABS: BASOPHILS 0.3 % (0-2); EOSINOPHILS 2.1 % (0-7); HEMATOCRIT 37.6 % (42.0-54.0); HEMOGLOBIN 11.8 g/dL (13.5-17.5); IMMATURE GRANULOCYTES 0.2 % (0-5); LYMPHOCYTES 17.4 % (15-50); MCH 27.4 pg (26.0-34.0); MCHC 31.4 g/dL (31.0-37.0); MCV 87.4 fL (80.0-100.0); MEAN PLATELET VOLUME 11.7 fL (7.4-10.4); MONOCYTES 9.9 % (2-11); NEUTROPHILS 70.1 % (40-80); PLATELET COUNT 166 10x3/uL (130-400); RDW 13.1 % (11.5-14.5); WBC 8.8 10x3/uL (4.8-10.8)
[2019-11-01 05:54] LABS: ALBUMIN 2.8 g/dL (3.4-5.0); BILIRUBIN - TOTAL 0.57 mg/dL (0.2-1.3); CALCIUM 8.3 mg/dL (8.5-10.1); CARBON DIOXIDE 28.1 mmol/L (21.0-32.0); CREATININE - SERUM 1.1 mg/dL (0.6-1.3); MAGNESIUM - SERUM 1.6 mg/dL (1.8-2.4); PHOSPHOROUS 2.7 mg/dL (2.5-4.9); POTASSIUM - SERUM 4.1 mmol/L (3.5-5.1); PROTEIN - SERUM 6.3 g/dL (6.4-8.2)
[2019-11-01 05:57] VITALS: BP 158/81
[2019-11-01 06:01] VITALS: BP 122/61
--- NOTE | 2019-11-01 07:20 | NUR ---
PT UP TO CHAIR, A/O X4, RESP EVEN AND NONLABORED ON 3L NC. HEART MONITOR SHOWING SR WITH RATE OF 81. LT HAND IV INFUSING NS AT 100CC/HR. RT GROIN DRESSING CDI, NO S/S OF BLEEDING OR HEMATOMA. PT DFNEIS ANY NEEDS AT THIS TIME. CALL LIGHT IN REACH, NAD NOTED, WILL CONTINUE PLAN OF CARE.
[2019-11-01 08:00] VITALS: BP 121/67
--- NOTE | 2019-11-01 08:59 | NUR ---
PROVIDED VERBAL AND WRITTEN DISCHARGE TEACHING TO PT, WHO VERBALIZED UNDERSTANDING REGARDING TEACHING. D/C LT HAND IV WITH CATHETER TIP INTACT. HEART MONITOR REMOVED AND TAKEN TO TUB OPERATOR. PT WAITING ON RIDE, WILL NOTIFY NURSE WHEN READY FOR WHEELCHAIR.
--- NOTE | 2019-11-01 10:30 | NUR ---
PT LEFT UNIT VIA WHEELCHAIR, WITH ALL BELONGINGS, NAD NOTED.
--- NOTE | 2019-11-03 08:54 | OP ---
PATIENT NAME: JOSE MOTA MEDICAL RECORD: [id number] :61 LOCATION:D.M2 D.2114 ADMISSION DATE:10/31/19 SURGEON: CHIP QUINONEZ MD DATE OF OPERATION: 10/31/2019 PROCEDURE: Left heart catheterization, selective coronary angiography, right femoral artery approach. CATHETERS: A 5-Tanzanian sheath, 5/4 left and right Archana, 5/4 pig. The procedure was well tolerated. The patient returned to the jorge, sheath removed. ExoSeal device placed. FINDINGS: Left ventriculography in 30-degree CENTENO view shows anterior mid-anterior wall with apical hypokinesis. Overall, LV function reduced at 30% to 35%. CORONARY ANATOMY: LEFT MAIN: Left main is free of disease. LAD: Has two ostial stenoses, this is an end-stent restenosis better than 90%, just distal to this is 80% end in-stent restenosis, obviously infarct related artery. CIRCUMFLEX: Large circumflex with minimal irregularities. RIGHT CORONARY ARTERY: Totally occluded, area of previous stenting and fills via left to right collaterals. PLAN: For intervention to LAD momentarily. DESCRIPTION OF PROCEDURE: A 5-Tanzanian sheath was exchanged for a 6-Tanzanian sheath. XB LAD guiding catheter provided good guide catheter support followed by a 300 cm Whisper wire. We were able to cover both end-stent restenosis as well as in-stent restenosis with a 3.5 x 18 mm Rosendo drug-eluting at 14 atmospheres for 45 seconds. Final angiography showed excellent resolution of 90% stenosis, no significant residual. RAE flow was 3 throughout the procedure. Sheath was closed with ExoSeal device. Plavix was loaded in the lab. TRANSINT:[id number] Voice Confirmation ID: [id number] DOCUMENT ID: [id number] CHIP QUINONEZ MD at 0854 CC: [id number] DICTATION DATE: 10/31/19 1305 TEST LAB TECHNICIAN: 10/31/19 1625 DIS IN 11/01/19 [facility] [address] [place] [address]
--- NOTE | 2019-11-03 08:54 | EC ---
PATIENT:JOSE MOTA DATE OF SERVICE: 10/31/19 SEX: M MEDICAL RECORD: [id number] DATE OF : [birth year] LOCATION:D.M2 D.211 AGE OF PATIENT: 54 ADMISSION DATE: 10/31/19 REFERRING PHYSICIAN: INTERPRETING PHYSICIAN: CHIP QUINONEZ MD ECHOCARDIOGRAM REPORT ECHO CHARGES 4 ECHO COMPLETE Date: 10/31/19 CLINICAL DIAGNOSIS: NON Q WI ECHOCARDIOGRAPHIC MEASUREMENTS (adult normal given) AC root (d.<3.7cm) 3.2 cm LV Septum d (<1.2 cm> 1.5 cm Valve Excursion 1.8 cm LV Septum (systole) 1.6 cm Left Atria (s.<4.0cm> 3.9 cm LVPW d(<1.2cm) 0.9 cm RV (d.<2.3cm) 3.9 cm LVPW (sytole) 1.4 cm LV diastole(<5.6CM) 6.4 cm MV E-F(>70mm/sec) cm LV systole 5.4 cm LVOT Diameter 1.7 cm MV exc.(>10mm) cm Est.ejection fraction (50-75%) % DOPPLER: LVIT cm/sec A 32 cm/sec E 101 cm/sec LA cm/sec RVSP 13.9 mmHg LVOT 66 cm/sec AOP1/2T m/s Asc. Ao 97 cm/sec RVOT 47 cm/sec RA cm/sec PA 50 cm/sec AV Gradient Peak 3.8 mmHg AV Mean 1.9 mmHg AV Area 2.1 cm MV Gradient Peak 6.1 mmHg MV Mean 2.4 mmHg MV Area cm COMMENTS: Freight And Passenger Agent: Jessica MUNSON Rn Cardiology: 3 Dr. Hannon TAPE# PACS Pericardial Effusion N DATE OF SERVICE: Adequate 2D, color-flow imaging, spectral Doppler, and M-mode. LVH is present. LV internal dimension is normal. There is hypokinesis of the mid anterior wall down the anterior apical region. Overall, function reduced at 40% to 45%. Aortic valve sclerosis without stenosis by Doppler interrogation. Left atrium is normal. Mitral valve shows prolapse. Trivial MR. Right side grossly normal. Trivial TR. ECHOCARDIOGRAM REPORT [id number] JOSE MOTA NTS:[id number] Voice Confirmation ID: [id number] DOCUMENT ID: [id number] CHIP QUINONEZ MD at 0854 CC: [id number] DICTATION DATE: 10/31/19 132 ADVISER SALES: 10/31/19 1854 DIS IN 11/01/19 [facility] [address] [place] [address]
== END 2019-11-01 10:30 | disposition home or self-care (01) | DRG 246 ==
LOC: D.ER 22:24 → D.M2 10-31 00:43
PROVIDERS: Emergency Medicine; Internal Medicine Cardiovascular Disease; Internal Medicine Interventional Cardiology; ADMIT Family Medicine; ATTEND Family Medicine
PROC: B2111ZZ Fluoroscopy of Multiple Coronary Arteries using Low Osmolar Contrast (ICD-10-PCS; 2019-10-31)
PROC: B2151ZZ Fluoroscopy of Left Heart using Low Osmolar Contrast (ICD-10-PCS; 2019-10-31)
PROC: 027034Z Dilation of Coronary Artery, One Artery with Drug-eluting Intraluminal Device, Percutaneous Approach (ICD-10-PCS; principal; 2019-10-31 12:00)
PROC: 4A023N7 Measurement of Cardiac Sampling and Pressure, Left Heart, Percutaneous Approach (ICD-10-PCS; 2019-10-31 12:00)
DX: T82.855A Stenosis of coronary artery stent, initial encounter (principal); I21.A1 Myocardial infarction type 2; E11.69 Type 2 diabetes mellitus with other specified complication; I50.9 Heart failure, unspecified; E78.5 Hyperlipidemia, unspecified; I11.0 Hypertensive heart disease with heart failure; I25.10 Atherosclerotic heart disease of native coronary artery without angina pectoris; Y83.9 Surgical procedure, unspecified as the cause of abnormal reaction of the patient, or of later complication, without mention of misadventure at the time of the procedure; Z86.73 Personal history of transient ischemic attack (TIA), and cerebral infarction without residual deficits